=== PATIENT | female | born 1955 | race Caucasian/White ===

== ENCOUNTER 2021-05-03 22:38 | Inpatient (IN) | payer MEDICARE ==
--- NOTE | 2021-05-04 00:28 | ED ---
General Adult HPI - General Source: EMS Mode of arrival: ambulatory Limitations: no limitations <Zuleyma Cook - Last Filed: 05/04/21 03:33> <Dejon Parra - Last Filed: 05/04/21 15:04> - General Stated complaint: altered mental status Time Seen by Provider: 05/03/21 22:47 - History of Present Illness Initial comments: 65 year-old female patient presents via EMS for unknown reasons. Patient states she was eating at a restaurant in [place]. Apparently restaurant staff became concerned and called the police. EMS reports that the officers called them to bring her here because our facility is close to the [place] border. Patient states that she traveled here from [place] on a Greyhound Bus. States she is trying to get to [place] because she does not like our "liberal leaders". She states she has family in [place] but does not have their contact information. States that she has been staying at motels and is trying to get to a motel tonight. Patient denies any current physical symptoms or concerns. States she does have some aching joints consistent with her usual arthritis. States she takes ibuprofen for this but denies any fever or chills or denies any chest pain or shortness of breath. Denies any headache, blurred vision, or double vision. States she feels well. States she is unsure whether brought her to the em ergency department. (Zuleyma Cook) Review of Systems ROS Other: All systems not noted in ROS Statement are negative. <Zuleyma Cook - Last Filed: 05/04/21 03:33> ROS Other: All systems not noted in ROS Statement are negative. <Dejon Parra - Last Filed: 05/04/21 15:04> ROS Statement: Those systems with pertinent positive or pertinent negative responses have been documented in the HPI. Past Medical History Past Medical History: No Reported History, Unable to Obtain History of Any Multi-Drug Resistant Organisms: None Reported Past Surgical History: Unable to Obtain Past Psychological History: No Psychological Hx Reported Smoking Status: Unknown if ever smoked Past Alcohol Use History: None Reported Past Drug Use History: None Reported <Zuleyma Cook - Last Filed: 05/04/21 03:33> General Exam Limitations: no limitations General appearance: alert, in no apparent distress, other (This is a well- developed, well-nourished adult female patient in no acute distress. ) Eye exam: Present: normal appearance, PERRL, EOMI. Absent: scleral icterus, conjunctival injection, periorbital swelling ENT exam: Present: normal exam, normal oropharynx, mucous membranes moist Respiratory exam: Present: normal lung sounds bilaterally. Absent: respiratory distress, wheezes, rales, rhonchi, stridor Cardiovascular Exam: Present: regular rate, normal rhythm, normal heart sounds. Absent: systolic murmur, diastolic murmur, rubs, gallop, clicks GI/Abdominal exam: Present: soft, normal bowel sounds. Absent: distended, tenderness, guarding, rebound, rigid Neurological exam: Present: alert, oriented X3, CN II-XII intact Psychiatric exam: Present: normal affect, normal mood Skin exam: Present: warm, dry, intact, normal color. Absent: rash <Zuleyma Cook - Last Filed: 05/04/21 03:33> Course <Dejon Parra - Last Filed: 05/04/21 15:04> Vital Signs 05/03/21 05/04/21 05/04/21 23:53 00:22 04:05 Temperature 98.8 F Pulse Rate 70 78 Respiratory 18 18 Rate Blood Pressure 158/78 O2 Sat by Pulse 98 98 Oximetry 05/04/21 07:47 Temperature 97.8 F Pulse Rate 83 Respiratory 18 Rate Blood Pressure 169/93 O2 Sat by Pulse 99 Oximetry - Reevaluation(s) Reevaluation #1: 05/04/21 15:03 I did evaluate the patient did do a [id number] with patient. I did complete a clinical certificate on the patient did review the petition. (Dejon Parra) Medical Decision Making <Zuleyma Cook - Last Filed: 05/04/21 03:33> - Lab Data Result diagrams: 05/04/21 12:14 05/04/21 12:14 <Dejon Parra - Last Filed: 05/04/21 15:04> - Medical Decision Making 65 old female patient presented to the emergency department today is essentially homeless living motile [facility]. She is traveling here from [place] attempting to travel into [place]. Patient does not have a cell phone, no phone numbers are contacts. States she doesn't have any family that lives near here. She is not suicidal nor homicidal, has no medical complaints, therefore does not meet criteria for admission. I did attempt to contact motels for her to stay in, none were available or within her man range. Contacted [facility], they have no openings tonight, but advised us to call back after 12:00pm tomorrow. Patient will remain in ED until morning when social work can be contacted for assistance. (Zuleyma Cook) - Lab Data Lab Results 05/03/21 05/04/21 05/04/21 Range/Units 23:45 12:14 12:14 WBC 7.7 (3.8-10.6) k/uL RBC 4.85 (3.80-5.40) m/uL Hgb 14.6 (11.4-16.0) gm/dL Hct 43.0 (34.0-46.0) % MCV 88.7 (80.0-100.0) fL MCH 30.1 (25.0-35.0) pg MCHC 33.9 (31.0-37.0) g/dL RDW 12.5 (11.5-15.5) % Plt Count 322 (150-450) k/uL MPV 6.5 Neutrophils % 74 % Lymphocytes % 17 % Monocytes % 6 % Eosinophils % 1 % Basophils % 1 % Neutrophils # 5.7 (1.3-7.7) k/uL Lymphocytes # 1.3 (1.0-4.8) k/uL Monocytes # 0.5 (0-1.0) k/uL Eosinophils # 0.1 (0-0.7) k/uL Basophils # 0.1 (0-0.2) k/uL Sodium 139 (137-145) mmol/L Potassium 4.7 (3.5-5.1) mmol/L Chloride 105 (98-107) mmol/L Carbon Dioxide 24 (22-30) mmol/L Anion Gap 10 mmol/L BUN 14 (7-17) mg/dL Creatinine 0.67 (0.52-1.04) mg/dL Est GFR (CKD-EPI)AfAm >90 (>60 ml/min/1.73 sqM) Est GFR (CKD-EPI)NonAf >90 (>60 ml/min/1.73 sqM) Glucose 126 H (74-99) mg/dL Calcium 10.0 (8.4-10.2) mg/dL Total Bilirubin 0.3 (0.2-1.3) mg/dL AST 21 (14-36) U/L ALT 11 (4-34) U/L Alkaline Phosphatase 88 (38-126) U/L Creatine Kinase 73 (30-135) U/L Total Protein 6.9 (6.3-8.2) g/dL Albumin 4.4 (3.5-5.0) g/dL Coronavirus (PCR) Not Detected (Not Detectd) Disposition <Zuleyma Cook - Last Filed: 05/04/21 03:33> <Dejon Parra - Last Filed: 05/04/21 15:04> Clinical Impression: Acute psychosis Disposition: TRANSFER TO PSYCH HOSP/UNIT Condition: Fair Referrals: Nonstaff,Physician [Primary Care Provider] - 1-2 days
[2021-05-04 12:40] LABS: ALT 11 U/L (4-34); AST 21 U/L (14-36); African American GFR (CKD) >90 (>60 ml/min/1.73 sqM); Albumin 4.4 g/dL (3.5-5.0); Alkaline Phosphatase 88 U/L (38-126); Anion Gap 10 mmol/L; Blood Urea Nitrogen 14 mg/dL (7-17); Carbon Dioxide 24 mmol/L (22-30); Chloride 105 mmol/L (98-107); Creatine Kinase 73 U/L (30-135); Glucose 126 mg/dL (74-99); Non-African American GFR(CKD) >90 (>60 ml/min/1.73 sqM); Potassium 4.7 mmol/L (3.5-5.1); Sodium 139 mmol/L (137-145); Total Bilirubin 0.3 mg/dL (0.2-1.3); Total Protein 6.9 g/dL (6.3-8.2)
[2021-05-04 12:58] LABS: Basophils # (A) 0.1 k/uL (0-0.2); Basophils % (A) 1 %; Eosinophils # (A) 0.1 k/uL (0-0.7); Eosinophils % (A) 1 %; HGB 14.6 gm/dL (11.4-16.0); Lymphocytes # (A) 1.3 k/uL (1.0-4.8); Lymphocytes % (A) 17 %; MCH 30.1 pg (25.0-35.0); MCHC 33.9 g/dL (31.0-37.0); MCV 88.7 fL (80.0-100.0); Mean Platelet Volume 6.5; Monocytes # (A) 0.5 k/uL (0-1.0); Monocytes % (A) 6 %; Neutrophils # (A) 5.7 k/uL (1.3-7.7); Neutrophils % (A) 74 %; Platelet Count 322 k/uL (150-450); RBC 4.85 m/uL (3.80-5.40); RDW 12.5 % (11.5-15.5); WBC 7.7 k/uL (3.8-10.6)
[2021-05-04] MEDS ORDERED: LORazepam 1 MG TAB PO PRN (16:05)
[2021-05-04] MEDS ORDERED: MAG HYDROX/AL HYDROX/SIMETH 30 ML CUP PO PRN (16:05)
[2021-05-04] MEDS ORDERED: MAGNESIUM HYDROXIDE 2,400 MG/10 ML CUP PO PRN (16:05)
[2021-05-04] MEDS ORDERED: LORazepam 2 MG/ML INJ IM PRN (16:08)
[2021-05-04] MEDS ORDERED: HALOPERIDOL LACTATE 5 MG/ML 1 ML VIAL IM PRN (16:09)
[2021-05-04] MEDS ORDERED: IBUPROFEN 600 MG TAB PO PRN (16:30)
[2021-05-04] MEDS: IBUPROFEN 400 MG TAB PO PRN (18:45)
[2021-05-04] MEDS: LIDOCAINE 5% PATCH TOPICAL SCH (23:26)
--- NOTE | 2021-05-05 02:21 | P.MDCNMH ---
History of Present Illness H&P Date: 05/04/21 Chief Complaint: Medical evaluation 65-year-old female with no significant past medical history, chronic low back pain Patient was brought in by police, she is homeless and has been traveling from [place] to go to [place] to see her family she currently denies any depression, suicidal or homicidal ideation. She reports some low back and mid back pain which is chronic in nature denies any focal neuro deficits she was requesting lidocaine patch to help with pain and cyst which she has been used in the past. She denies any nausea vomiting headache fevers chills coughing shortness of breath or chest pain Initial blood work in the ED was unremarkable Patient denies any mental health problems, denies any smoking drinking or drug abuse Review of Systems Pertinent positives as noted in HPI. All other systems were reviewed and are negative Past Medical History Past Medical History: No Reported History Additional Past Medical History / Comment(s): Arthritis, neck/back pain, psoriasis, hypoglycemia, short term memory loss x10 years (lived in an un-named assisted living facility in [place], [place] for 10 years) History of Any Multi-Drug Resistant Organisms: None Reported Past Surgical History: Appendectomy Past Anesthesia/Blood Transfusion Reactions: Unable to Obtain Past Psychological History: No Psychological Hx Reported Additional Psychological History / Comment(s): Patient reported in EPS assessment that she was hospitalized in [place]. Smoking Status: Never smoker Past Alcohol Use History: None Reported Past Drug Use History: None Reported - Past Family History Mother Additional Family Medical History / Comment(s): Alzheimer's Father Additional Family Medical History / Comment(s): Parkinson's Medications and Allergies Home Medications Medication Instructions Recorded Confirmed Type Ibuprofen [Motrin] 400 mg PO Q6HR PRN 05/04/21 05/04/21 History Allergies Allergy/AdvReac Type Severity Reaction Status Date / Time acetaminophen [From Tylenol] AdvReac Mild Unknown Verified 05/04/21 18:12 Physical Exam Vitals: Vital Signs Temp Pulse Pulse Resp BP BP Pulse Ox 05/04/21 16:22 97.6 F 89 16 170/96 98 05/04/21 07:47 97.8 F 83 18 169/93 99 05/04/21 04:05 78 18 98 Intake and Output 05/04/21 05/04/21 05/05/21 14:59 22:59 06:59 Other: Weight 68.356 kg Constitutional: No acute distress, conversant, pleasant Eyes: Anicteric sclerae, moist conjunctiva, Pupils equal round reactive to light ENMT: NC/AT Oropharynx clear, no erythema, or exudates Neck: Supple, FROM, no masses, or JVD No carotid bruits No thyromegaly Lungs: Clear to auscultation Clear to percussion Normal respiratory effort, no accessory muscle use Cardiovascular: Heart regular in rate and rhythm, No murmurs, gallops, or rubs No peripheral edema Abdominal: Soft Nontender, no guarding, rebound or rigidity Abdomen moving with respiration Normoactive bowel sounds No hepatomegaly, No splenomegaly No palpable mass No abdominal wall hernia noted Skin: Normal temperature, tone, texture, turgor No induration No subcutaneous nodules No rash, lesions No ulcers Extremities: No digital cyanosis No clubbing Pedal pulses intact and symmetrical Radial pulses intact and symmetrical No calf tenderness Psychiatric: Alert and oriented to person, place Appropriate affect fair judgement Neuro Muscles Strength 5/5 in all 4 extremities Sensation to light touch grossly present throughout Cranial nerves II-XII grossly intact No focal sensory deficits Lymphatics: no palpable cervical or supraclavicular , or inguinal lymph nodes Cranial Nerve Examination - Cranial Nerves Cranial Nerve II- Optic: Intact Cranial Nerve III- Oculomotor: Intact Cranial Nerve IV- Trochlear: Intact Cranial Nerve V- Trigeminal: Intact Cranial Nerve - Abducens: Intact Cranial Nerve VII- Facial: Intact Cranial Nerve VIII- Auditory: Intact Cranial Nerve IX- Glossopharyngeal: Intact Cranial Nerve X- Vagus: Intact Cranial Nerve XI- Accessory: Intact Cranial Nerve XII- Hypoglossal: Intact Results CBC & Chem 7: 05/04/21 12:14 05/04/21 12:14 Labs: Abnormal Lab Results - Last 24 Hours (Table) 05/04/21 Range/Units 12:14 Glucose 126 H (74-99) mg/dL Assessment and Plan Assessment: Homeless patient Chronic low back pain and mid back pain, pain management lidocaine patch per her request Follow-up psych recommendations Labs reviewed unremarkable Thank you for allowing us to participate in the care of this patient. We will follow peripherally. Do not hesitate to contact us with questions. Someone can be reached from the [facility] hospitalist group at all hours of the day at [phone].
[2021-05-05] MEDS: IBUPROFEN 400 MG TAB PO PRN ×2 (08:05→20:06)
[2021-05-05 10:01] LABS: Basophils # (A) 0.1 k/uL (0-0.2); Basophils % (A) 1 %; Eosinophils # (A) 0.2 k/uL (0-0.7); Eosinophils % (A) 3 %; Lymphocytes # (A) 1.6 k/uL (1.0-4.8); Lymphocytes % (A) 18 %; MCH 29.7 pg (25.0-35.0); MCHC 32.7 g/dL (31.0-37.0); MCV 90.8 fL (80.0-100.0); Mean Platelet Volume 6.2; Monocytes # (A) 0.5 k/uL (0-1.0); Monocytes % (A) 6 %; Neutrophils # (A) 6.1 k/uL (1.3-7.7); Neutrophils % (A) 71 %; Platelet Count 349 k/uL (150-450); RBC 5.06 m/uL (3.80-5.40); RDW 12.5 % (11.5-15.5); WBC 8.6 k/uL (3.8-10.6)
[2021-05-05 10:16] LABS: ALT 10 U/L (4-34); AST 21 U/L (14-36); African American GFR (CKD) >90 (>60 ml/min/1.73 sqM); Albumin 4.5 g/dL (3.5-5.0); Alkaline Phosphatase 81 U/L (38-126); Anion Gap 6 mmol/L; Blood Urea Nitrogen 16 mg/dL (7-17); Carbon Dioxide 30 mmol/L (22-30); Chloride 103 mmol/L (98-107); Glucose 80 mg/dL (74-99); Non-African American GFR(CKD) 89 (>60 ml/min/1.73 sqM); Potassium 4.8 mmol/L (3.5-5.1); Sodium 139 mmol/L (137-145); Total Bilirubin 0.5 mg/dL (0.2-1.3)
[2021-05-05] MEDS: LIDOCAINE 5% PATCH TOPICAL SCH (11:07)
--- NOTE | 2021-05-05 12:08 | P.HP ---
Psychiatric H&P - . H&P Date: 05/05/21 History & Physical: Allergies Allergy/AdvReac Type Severity Reaction Status Date / Time acetaminophen [From Tylenol] AdvReac Mild Unknown Verified 05/04/21 18:12 Vital Signs Temp 97.4 F L 05/05/21 06:39 Pulse 79 05/05/21 06:39 Resp 16 05/05/21 06:39 BP 179/90 05/05/21 06:39 Pulse Ox 98 05/04/21 16:22 Intake & Output 05/04/21 05/05/21 05/05/21 18:59 06:59 18:59 Weight 68.356 kg Laboratory Last Values WBC 8.6 k/uL (3.8-10.6) 05/05/21 09:36 RBC 5.06 m/uL (3.80-5.40) 05/05/21 09:36 Hgb 15.0 gm/dL (11.4-16.0) 05/05/21 09:36 Hct 46.0 % (34.0-46.0) 05/05/21 09:36 MCV 90.8 fL (80.0-100.0) 05/05/21 09:36 MCH 29.7 pg (25.0-35.0) 05/05/21 09:36 MCHC 32.7 g/dL (31.0-37.0) 05/05/21 09:36 RDW 12.5 % (11.5-15.5) 05/05/21 09:36 Plt Count 349 k/uL (150-450) 05/05/21 09:36 MPV 6.2 05/05/21 09:36 Neutrophils % 71 % 05/05/21 09:36 Lymphocytes % 18 % 05/05/21 09:36 Monocytes % 6 % 05/05/21 09:36 Eosinophils % 3 % 05/05/21 09:36 Basophils % 1 % 05/05/21 09:36 Neutrophils # 6.1 k/uL (1.3-7.7) 05/05/21 09:36 Lymphocytes # 1.6 k/uL (1.0-4.8) 05/05/21 09:36 Monocytes # 0.5 k/uL (0-1.0) 05/05/21 09:36 Eosinophils # 0.2 k/uL (0-0.7) 05/05/21 09:36 Basophils # 0.1 k/uL (0-0.2) 05/05/21 09:36 Sodium 139 mmol/L (137-145) 05/05/21 09:36 Potassium 4.8 mmol/L (3.5-5.1) 05/05/21 09:36 Chloride 103 mmol/L (98-107) 05/05/21 09:36 Carbon Dioxide 30 mmol/L (22-30) 05/05/21 09:36 Anion Gap 6 mmol/L 05/05/21 09:36 BUN 16 mg/dL (7-17) 05/05/21 09:36 Creatinine 0.71 mg/dL (0.52-1.04) 05/05/21 09:36 Est GFR (CKD-EPI)AfAm >90 (>60 ml/min/1.73 sqM) 05/05/21 09:36 Est GFR (CKD-EPI)NonAf 89 (>60 ml/min/1.73 sqM) 05/05/21 09:36 Glucose 80 mg/dL (74-99) 05/05/21 09:36 Calcium 10.0 mg/dL (8.4-10.2) 05/05/21 09:36 Total Bilirubin 0.5 mg/dL (0.2-1.3) 05/05/21 09:36 AST 21 U/L (14-36) 05/05/21 09:36 ALT 10 U/L (4-34) 05/05/21 09:36 Alkaline Phosphatase 81 U/L (38-126) 05/05/21 09:36 Creatine Kinase 73 U/L (30-135) 05/04/21 12:14 Total Protein 7.0 g/dL (6.3-8.2) 05/05/21 09:36 Albumin 4.5 g/dL (3.5-5.0) 05/05/21 09:36 TSH 6.040 mIU/L (0.465-4.680) H 05/05/21 09:36 Coronavirus (PCR) Not Detected (Not Detectd) 05/03/21 23:45 05/05/21 12:07 IDENTIFYING DATA: Patient is a single, unemployed, homeless, 65 year-old female who was admitted for psychosis. HPI: Patient presented to the hospital on 05/04/2021. As previously noted, the patient was brought to the ER by EMS after being at a restaurant in [place]. Patient reports she was trying to go to [place] to be with her cousins in [place] as she states that "Muslims have taken over [place], [place]." Fur thermore, the patient reports that [place] Christians are being "experimented on" and being given bad prescriptions. She also suspects that this is a ploy from the Muslims or taking over. The patient does express that she is going to [place] to escape all of this. She does state that she did not inform her family members that she'll be going to [place], and is quite confused at this provider asking whether she informed them were not stating that she does not need to inform them. The patient is noted to be quite resourceful, going from Motel room to motel room in [facility] and in the surrounding area. There is a question whether she was recently admitted to a psychiatric unit in [place]. The patient does express strong disdain for the mental health profession, stating that she does not want to be experimented on by the psychiatrists in the mental health system. The patient is quite religiously preoccupied, and replies to this provider, "they tried to put me on medications but I prayed to God and had them boomerang it back to them." The patient is unable to answer any further questions regarding any other symptoms. She continues to display pressured speech and is uncooperative with the rest of the interview. PAST PSYCHIATRIC HISTORY: Unable to assess. Reportedly, the patient was recently hospitalized in an inpatient psychiatric unit in [place]. No psychiatric medications are listed. Patient does not report any previous psychiatric treatment. PMH: Past Medical History: No Reported History Additional Past Medical History / Comment(s): Arthritis, neck/back pain, psoriasis, hypoglycemia, short term memory loss x10 years (lived in an un-named assisted living facility in [place], [place] for 10 years) History of Any Multi-Drug Resistant Organisms: None Reported Past Surgical History: Appendectomy Past Anesthesia/Blood Transfusion Reactions: Unable to Obtain Past Psychological History: No Psychological Hx Reported Additional Psychological History / Comment(s): Patient reported in EPS a ssessment that she was hospitalized in [place]. Smoking Status: Never smoker Past Alcohol Use History: None Reported Past Drug Use History: None Reported ALLERGIES: Acetaminophen CHEMICAL DEPENDENCY HISTORY: as per HPI FAMILY PSYCHIATRIC/SUBSTANCE USE HISTORY: denies SOCIAL HISTORY: Patient is originally from [place], [place]. She also notes [place], [place] as part of her residence in the past. She reports multiple family members throughout the [place] and in [place]. She reports that she was headed towards her cousin in [place]. MENTAL STATUS EXAM: General Appearance: Patient appears to be her stated age, with poor hygiene and grooming, and is uncooperative and difficult to direct on approach. Behavior: Patient is lying in bed. Psychomotor activity is elevated. Speech: Patient's speech is pressured, repetitive, loud in volume, and hyperverbal. Mood/Affect: Patient reports their mood is "good because of God," affect is intense, expansive, and irritable. Suicidality/Homicidality: Unable to assess. Patient refuses to answer. Perceptions: Unable to assess. Patient refuses to answer. Though content/process: Patient is very religiously preoccupied. Thought process with flight of ideas. Memory and concentration: Grossly intact for the purposes of this session. Judgment and insight: Very poor STRENGTHS/WEAKNESSES: Strength is that the patient is resourceful. Weakness is that the patient has very poor insight and limited judgment. Nonadherent with treatment. INTELLECT: average IMPRESSIONS: Bipolar disorder, type I versus schizoaffective disorder, bipolar type PLAN: -Patient is admitted under involuntary status to MHU for stabilization of psychiatric symptoms and safety. A second certification was completed and along with petition will be filed for court. -Medications : Will start Invega 3 mg at bedtime for mood stabilization/psychosis -Ativan and Haldol PRN for agitation/aggression -Patient was informed of the risks, benefits and side effects of the medication. Patient refused to acknowledge. -Internal Medicine consult to perform medical evaluation and physical. -SW on board for discharge planning. Encourage patient to participate in groups to work on coping skills. 05/05/21 12:08
[2021-05-05 15:06] LABS: Appearance,Urine Clear (Clear); Bacteria,Urine Rare /hpf; Bilirubin,Urine Negative (Negative); Blood,Urine Negative (Negative); Color,Urine Light Yellow; Glucose,Urine (UA) Negative (Negative); Ketones,Urine Negative (Negative); Leukocyte Esterase,Urine Moderate (Negative); Nitrite,Urine Negative (Negative); PH, Urine 6.5 (5.0-8.0); Protein,Urine Negative (Negative); RBC,Urine 2 /hpf (0-5); Specific Gravity,Urine 1.011 (1.001-1.035); Urobilinogen,Urine <2.0 mg/dL (<2.0); WBC,Urine 1 /hpf (0-5)
[2021-05-05 18:12] LABS: Chol/HDL Ratio 2.75; Cholesterol 231 mg/dL (0-200)
[2021-05-05 19:51] LABS: Hemoglobin A1C 5.1 % (4.0-6.0)
[2021-05-05] MEDS: PALIPERIDONE 3 MG TAB.ER.24 PO SCH (20:07)
[2021-05-06 01:42] LABS: Urine Alcohol Negative (Negative); Urine Barbiturate Negative (Negative); Urine Cocaine Negative (Negative); Urine Methadone Negative (Negative); Urine Opiates Negative (Negative); Urine Phencyclidine Negative (Negative)
[2021-05-06] MEDS: LIDOCAINE 5% PATCH TOPICAL SCH (09:02)
[2021-05-06] MEDS: IBUPROFEN 400 MG TAB PO PRN ×3 (09:04→23:41)
--- NOTE | 2021-05-06 10:15 | P.PN ---
Progress Note - Text Progress Note Date: 05/06/21 Interval History: Patient was seen talking/praying to herself in the common room and was directable and agreeable to speak with writer editor in the office. The patient reports that she is doing well. She did take the medication last night and is not reporting any significant side effects that today. She continues to believe that the medications are just being used to experiment on her. She is currently not reporting any suicidal or homicidal ideation, intention, and/or plan. She is not reporting any auditory or visual hallucinations. She's not endorsing any paranoia or delusions but continues to be somewhat religiously preoccupied. The patient does highlight that she began her trip from [place] to [place] weeks ago. She states that she took a Greyhound from [place] to [place]. She reports that she was staying in between motels. The patient states that she "told somebody" to contact her family in [place] but cannot recall whom she told stating she has short term memory issues. The patient does state that she has an enhanced license longer to cross the border but was informed that due to Covid, nonessential travel is currently not open. The patient identifies Dr. Danuta Hoyt as her cousin who currently resides in [place]. The patient is currently unable to identfy an address or number but states that she would find her cousin by going to the hospital there. In regards to events leading to this hospitalization, the patient continues to maintain that she was brought to the hospital from [place] because she was informed that this would be the best way for her to cross the border. Mental Status Exam: General Appearance: Patient appears to be stated age is alert, directable, and cooperative. Dressed in her home clothes. Behavior: Patient is calmly seated without any agitated behavior. Psychomotor activity is slightly elevated. Speech: Patient's speech is fluent, hyperverbal, and somewhat pressured but more interruptible. Mood/Affect: Mood is feeling better, affect is expansive but not irritable. Suicidality/Homicidality: Patient denies any suicidal or homicidal ideation, intention, and/or plan. Perceptions: Patient denies any auditory or visual hallucinations. Though content/process: There is no evidence of any delusional thought content and thought process is linear and goal-directed. Memory and concentration: AAOX3, grossly intact for the purposes of this session Judgment and insight: Improving mildly Vital Signs Temp 97.5 F L 05/06/21 06:48 Pulse 62 05/06/21 06:48 Resp 16 05/06/21 06:48 BP 162/74 05/06/21 06:48 Pulse Ox 98 05/04/21 16:22 Laboratory Results - Last 24 Hours 05/04/21 05/05/21 05/05/21 Unknown 09:36 09:36 Sodium 139 Potassium 4.8 Chloride 103 Carbon Dioxide 30 Anion Gap 6 BUN 16 Creatinine 0.71 Est GFR (CKD-EPI)AfAm >90 Est GFR (CKD-EPI)NonAf [address] Glu mg/dL 100 Hemoglobin A1c 5.1 Calcium 10.0 Total Bilirubin 0.5 AST 21 ALT 10 Alkaline Phosphatase 81 Total Protein 7.0 Albumin 4.5 Triglycerides 95.0 Cholesterol 231 H LDL Cholesterol, Calc 128.0 VLDL Cholesterol, Calc 19.00 HDL Cholesterol 84.0 H Cholesterol/HDL Ratio 2.75 TSH 6.040 H Free T4 Urine Color Light Yellow Urine Appearance Clear Urine pH 6.5 Ur Specific Winder 1.011 Urine Protein Negative Urine Glucose (UA) Negative Urine Ketones Negative Urine Blood Negative Urine Nitrite Negative Urine Bilirubin Negative Urine Urobilinogen <2.0 Ur Leukocyte Esterase Moderate H Urine RBC 2 Urine WBC 1 Urine Bacteria Rare H Urine Opiates Screen Urine Methadone Screen Ur Propoxyphene Screen Urine Barbiturates Ur Phencyclidine Scrn Ur Amphetamine Screen U Benzodiazepines Scrn Urine Cocaine Screen U Cannabinoids Screen Urine Alcohol 05/05/21 05/05/21 09:36 Unknown Sodium Potassium Chloride Carbon Dioxide Anion Gap BUN Creatinine Est GFR (CKD-EPI)AfAm Est GFR (CKD-EPI)NonAf Glucose Estimated Ave Glu mg/dL Hemoglobin A1c Calcium Total Bilirubin AST ALT Alkaline Phosphatase Total Protein Albumin Triglycerides Cholesterol LDL Cholesterol, Calc VLDL Cholesterol, Calc HDL Cholesterol Cholesterol/HDL Ratio TSH Free T4 0.78 Urine Color Urine Appearance Urine pH Ur Specific Winder Urine Protein Urine Glucose (UA) Urine Ketones Urine Blood Urine Nitrite Urine Bilirubin Urine Urobilinogen Ur Leukocyte Esterase Urine RBC Urine WBC Urine Bacteria Urine Opiates Screen Negative Urine Methadone Screen Negative Ur Propoxyphene Screen Negative Urine Barbiturates Negative Ur Phencyclidine Scrn Negative Ur Amphetamine Screen Negative U Benzodiazepines Scrn Negative Urine Cocaine Screen Negative U Cannabinoids Screen Negative Urine Alcohol Negative Assessment Bipolar disorder, type I versus schizoaffective disorder, bipolar type Plan: -Patient continues to meet criteria for inpatient psychiatric admission for symptom stabilization and safety. Patient has been petitioned and certified. -Medications: Continue Invega 3 mg by mouth at bedtime for mood stabilization/psychosis We'll gradually increase Invega over the weekend. -When necessary Ativan and Haldol for agitation/aggression. -SW on board for discharge planning. Encouraged the patient to participate in milieu.
[2021-05-06] MEDS: PALIPERIDONE 3 MG TAB.ER.24 PO SCH (21:13)
[2021-05-07] MEDS: IBUPROFEN 400 MG TAB PO PRN ×2 (08:12→17:32)
[2021-05-07] MEDS: LIDOCAINE 5% PATCH TOPICAL SCH (09:07)
--- NOTE | 2021-05-07 12:36 | PN ---
PROGRESS NOTE DATE OF SERVICE: 05/07/2021 CHIEF COMPLAINT: The patient was admitted on petition. She had psychotic symptoms where she was expressing paranoid ideas and was hyper-scientologist. INTERVAL HISTORY: Patient has been doing fair. She was out on the unit yesterday. She did attend two groups for a limited amount of time. She tends to talk spontaneously about the issues that she especially is caught up in. A common theme seems to be that Judaism are bad in many ways and threatening to her and others. She did not take medications. She did not sleep much last night. Today she has been up. She continues to wander. She has an intense manner. She continues to focus on the hyper-scientologist thoughts that she has. She made a number of comments about believing any medicines that might be prescribed would be poison or doing some kind of experimentation on her. She was not able to engage in any conversation about her admission to the unit and factors relating to the petition process. MENTAL STATUS: Patient was somewhat restless. She gave fairly good eye contact. She talked in a fairly intense manner. She had some pressured speech and flight of ideas. Mostly she made comments about scientologist themes that were clearly delusional. Her affect was intense. At some times during the interview she seemed to have a somewhat angry manner though toward the end of the interview she smiled and was quite friendly. At that point she seemed to be in a positive mood. She did appear to be distressed. She continues to have delusions and paranoia. She voiced no thoughts of harm. She is oriented to circumstances and surroundings. ASSESSMENT: I will continue the current diagnosis and treatment plan. I encouraged the patient towards her getting on some medications though it is not likely that she will follow through at this time. I did make an effort to talk with her about the petition process and the potential for IM medications though that conversation was fairly limited as well, as the patient would defer and talk about other things. For the most part the patient appears to have appropriate behavior on the unit. We will continue with the petition process and focus on stabilization and discharge planning. JOSEF / LAWSON: [id number] /
[2021-05-07] MEDS: PALIPERIDONE 6 MG TAB.ER.24 PO SCH (21:13)
[2021-05-08] MEDS: IBUPROFEN 400 MG TAB PO PRN ×3 (00:11→17:56)
[2021-05-08] MEDS: LIDOCAINE 5% PATCH TOPICAL SCH ×3 (08:49→20:56)
--- NOTE | 2021-05-08 17:27 | PN ---
PROGRESS NOTE DATE OF SERVICE: 05/08/2021 CHIEF COMPLAINT: The patient was admitted on petition. She had psychotic symptoms where she was expressing paranoid ideas and was hyper hindu. INTERVAL HISTORY: The patient continues to do about the same as she has been. She mostly had a quiet day yesterday. She comes out on the unit. She wanders about. She will interact with others. At times she can be quite intense. She attended groups yesterday. She went into the 11:00 am group and the following was documented "patient briefly attended twice, but did not participate. Patient entered room "I love Ralph they are going to help. Statement did not appear to be directed towards any peers. The patient continued making statements related to lutheran when leaving the room." She attended a group at 3:30 PM and similar documentation was noted where she would shout out hindu statements. She has not been taking medications. She slept fairly well last night today she has been up. She continues to do the same. She comes out in the day area. She will carry on conversations though it is not always clear she is talking to anyone in particular. At the 11 o'clock group today, was noted that the patient sat at a table and continuously talked though it was not clear that she was talking to anyone in particular. She was religiously focused at the 1345 group. She was making some disconnected statements. She talked about muscle limbs being dangers people. When I talked to the patient about her petition situation, she got very upset with that. She believes that wicked people were throwing her in hospital and were going to experiment with medications on an innocent elderly person. She was not able to engage productively in the conversation. She continues to decline taking any psychotropic medications. MENTAL STATUS: Patient was quite restless, pretty much as soon as the issue of the petition process came up. She started getting quite intense. She got loud and was talking continuously. It was difficult to get a word in edge ojeda. She would point in an angry way making various statements about the dangerous people with various hindu references. Her affect was intense, her mood depressed. She was significantly distressed. She voiced paranoid delusions. She did not indicate any clear issues about thoughts of harm toward self or others. She was oriented to immediate circumstances. ASSESSMENT: I will continue the current diagnosis and treatment plan. I made an effort to discuss the petition process with the patient. I went through the petition that was completed apparently in the emergency department. It is noted that the patient was met by police in the community, though for the patient's part she did not seem to have any insight or understanding as to why the police came and what their concerns were in calling EMS. At this point, we will continue to support the patient and follow through with the petition process. MMSABINAL / IJN: [id number] /
[2021-05-08] MEDS: PALIPERIDONE 6 MG TAB.ER.24 PO SCH (20:55)
[2021-05-09] MEDS: IBUPROFEN 400 MG TAB PO PRN ×3 (01:35→16:50)
--- NOTE | 2021-05-09 14:40 | PN ---
PROGRESS NOTE DATE OF SERVICE: 05/09/2021. CHIEF COMPLAINT: The patient was admitted on petition. She had psychotic symptoms where she was expressing paranoid ideas and was hyper orthodoxy. INTERVAL HISTORY: Patient has continued to do the same. She had a quiet day yesterday. She comes out of the unit. She wanders about sometimes. She will get upset some and will make various references to being threatened in one way or another. Typically she will go off on orthodoxy themes. There are times when she is out on the unit where she seems to be comfortable and relaxed, though times where she can regress. She slept fairly well last night. Today she has been up. She continues to decline taking any medications. She did not make much effort to engage in conversation about the petition process. She attended an afternoon group. She she voiced no specific complaints or concerns today. MENTAL STATUS: Patient gave fairly good eye contact. She did not choose to talk for very long and ended the conversation after a short period of time. She was a little restless. Her thoughts were clear. Her affect was in a reasonable range. Her mood was reserved. She did not present in any distressed way. When I saw her today, she continues to show paranoid thinking. She made no indication of thoughts of harm. Cognition was clear. ASSESSMENT: I will continue the current diagnosis and treatment plan. We continue to encourage the patient to engage in group activities as well as to consider option of medications as a potential benefit for her. She continues in the legal process regarding her petition for involuntary hospitalization. We will focus on stabilization and discharge planning. MMSABINAL / IJN: [id number] /
[2021-05-09] MEDS: PALIPERIDONE 6 MG TAB.ER.24 PO SCH (21:06)
[2021-05-09] MEDS: LIDOCAINE 5% PATCH TOPICAL SCH (22:07)
[2021-05-10] MEDS: IBUPROFEN 400 MG TAB PO PRN ×3 (00:58→16:15)
[2021-05-10] MEDS: LIDOCAINE 5% PATCH TOPICAL SCH ×2 (09:04→21:57)
--- NOTE | 2021-05-10 12:41 | PN ---
PROGRESS NOTE DATE OF SERVICE: 05/10/2021. CHIEF COMPLAINT: The patient was admitted on petition. She had psychotic symptoms where she was expressing paranoid ideas and was hyper baptism. INTERVAL HISTORY: Patient continues about the same. She comes out in the day area. She will roam the unit. She interacts some with others. She will attend some of the groups and will engage in activity. She did not sleep well last night. A note from nursing at 6:17 am this morning is as follows: "The patient has been awake and restless the majority of the night. The patient reported she could not go in her room to sleep and stated she was scared. The patient spent the entire night in the back hallway in the chair. Patient also observed to be talking loudly to herself voicing loose associations about politics in scientology. The patient redirectable but only slept approximately 2 hours." The patient took her Invega 6 mg last evening at 9:00 pm. That is the first time she accepted her psychotropic. We continue to wait on the court process to proceed. The patient appeared to tolerate the initial dose of Invega. MENTAL STATUS: Patient was somewhat restless. She gave good eye contact. She made various statements, most of which had to do with some baptism themes. She had a fairly calm manner and was not too intense in her affect. Her mood was quiet. She did not appear to be distressed. She continues to voice paranoid delusions. She voices no thoughts of harm. She is oriented to circumstances and surroundings. ASSESSMENT: I will continue the current diagnosis and treatment plan. I deferred talking to the patient regarding her medications as with previous discussions that only seems to set her off into a lot of paranoid thinking and distress. We will be hopeful that she continues accepting the Invega. We are waiting on the court process to continue in regard to her petition for involuntary treatment. We will focus on stabilization and discharge planning. MMODL / SARAHN: [id number] /
[2021-05-10] MEDS: PALIPERIDONE 6 MG TAB.ER.24 PO SCH (21:18)
[2021-05-11] MEDS: IBUPROFEN 400 MG TAB PO PRN ×3 (07:09→23:00)
[2021-05-11] MEDS: LIDOCAINE 5% PATCH TOPICAL SCH (09:05)
--- NOTE | 2021-05-11 10:15 | P.PN ---
Progress Note - Text Progress Note Date: 05/11/21 Interval History: Patient was seen wandering the hallways and was agreeable to speak with continuity writer in the office. The patient has been intimately adherent with the medications but did take Invega yesterday. She is currently not reporting any significant side effects of this medication. The patient maintains that she does not need any of this medication and that she is being experimented on. Patient continues to report that Christians are being persecuted against and that this is the plan of the devil. She reports that Christians are being tossed him to psychiatric units to be force fed medications. She is not reporting any suicidal or homicidal ideation, intention, and/or plan. She is denying any auditory or visual hallucinations. She is not reporting any suicidal or homicidal ideation, intention, and/or plan. She denies any issues with sleep. She reports no issues with her appetite. Mental Status Exam: General Appearance: Patient appears to be stated age is alert, directable, and cooperative. Dressed in her home clothes. Behavior: Patient is calmly seated without any agitated behavior. Psychomotor activity is elevated. Speech: Patient's speech is fluent, hyperverbal, and difficult to interrupt. Pressured. Mood/Affect: Mood is "feeling okay." Affect is expansive, intense, and labile. Suicidality/Homicidality: Patient denies any suicidal or homicidal ideation, intention, and/or plan. Perceptions: Patient denies any auditory or visual hallucinations. Though content/process: Religiously preoccupied, delusions of persecution. Thought process is otherwise linear but illogical. Memory and concentration: AAOX3, grossly intact for the purposes of this session Judgment and insight: Very poor Vital Signs Temp 97.5 F L 05/10/21 06:45 Pulse 77 05/10/21 06:45 Resp 16 05/10/21 06:45 BP 186/81 05/10/21 06:45 Pulse Ox 98 05/04/21 16:22 Assessment Bipolar disorder, type I versus schizoaffective disorder, bipolar type Plan: -Patient continues to meet criteria for inpatient psychiatric admission for symptom stabilization and safety. Patient has been petitioned and certified. -Medications: Continue Invega 6 mg by mouth at bedtime for mood stabilization/psychosis Continue to encourage medication adherence. -When necessary Ativan and Haldol for agitation/aggression. -SW on board for discharge planning. Encouraged the patient to participate in milieu.
[2021-05-11] MEDS: PALIPERIDONE 6 MG TAB.ER.24 PO SCH (21:17)
[2021-05-12] MEDS: IBUPROFEN 400 MG TAB PO PRN ×2 (08:07→16:16)
[2021-05-12] MEDS: LIDOCAINE 5% PATCH TOPICAL SCH (09:17)
--- NOTE | 2021-05-12 12:18 | P.PN ---
Progress Note - Text Progress Note Date: 05/12/21 Interval History: Patient was seen wandering the hallways and speaking to herself and was agreea ble to speak with check writer salesperson in the office. The patient first states that she wants this provider to read "Psalm 103." She continues to be religiously preoccupied. She is currently denying any suicidal or homicidal ideation, intention, and/or plan. She denies any auditory or visual hallucinations. She reports no paranoia or other delusions. The patient continues to maintain that she is sleeping and eating well. Despite this, she has been noted by staff to not be sleeping at night. She continues to be noted to be elevated, euphoric, and at times speaking to herself. She has been adherent with her Invega is currently not reporting any significant side effects at this time. Mental Status Exam: General Appearance: Patient appears to be stated age is alert, directable, and cooperative. Dressed in her home clothes. Multiple layers. Behavior: Patient is calmly seated without any agitated behavior. Psychomotor activity is normal. Speech: Patient's speech is fluent, hyperverbal, and difficult to interrupt. Pressured. Mood/Affect: Mood is "doing great!" Affect is expansive and euphoric. Suicidality/Homicidality: Patient denies any suicidal or homicidal ideation, intention, and/or plan. Perceptions: Patient denies any auditory or visual hallucinations. Though content/process: Religiously preoccupied, delusions of persecution. Thought process is otherwise linear but illogical. Memory and concentration: AAOX3, grossly intact for the purposes of this session Judgment and insight: Very poor Vital Signs Vital Signs Temp 97.5 F L 05/10/21 06:45 Pulse 77 05/10/21 06:45 Resp 16 05/10/21 06:45 BP 186/81 05/10/21 06:45 Pulse Ox 98 05/04/21 16:22 Assessment Bipolar disorder, type I versus schizoaffective disorder, bipolar type Plan: -Patient continues to meet criteria for inpatient psychiatric admission for symptom stabilization and safety. Patient has been petitioned and certified. -Medications: Increase invega to 9 mg by mouth at bedtime for mood stabilization/psychosis Start Trazodone 50 mg at bedtime for insomnia Continue to encourage medication adherence. -When necessary Ativan and Haldol for agitation/aggression. -SW on board for discharge planning. Encouraged the patient to participate in milieu.
[2021-05-12] MEDS: PALIPERIDONE 3 MG TAB.ER.24 PO SCH (21:21)
[2021-05-12] MEDS: traZODone HCL 50 MG TAB PO SCH (21:21)
[2021-05-13] MEDS: IBUPROFEN 400 MG TAB PO PRN ×4 (00:03→23:55)
[2021-05-13] MEDS: LIDOCAINE 5% PATCH TOPICAL SCH (10:55)
--- NOTE | 2021-05-13 12:50 | P.PN ---
Progress Note - Text Progress Note Date: 05/13/21 Interval History: Patient was seen wandering the hallways and speaking to herself and was agree able to speak with medical technical writer in the office. Patient continues to be very religiously preoccupied. She is seen talking to herself on the unit and has been noted to have difficulty sleeping and to be up at late hours in the night. She continues to deny any suicidal or homicidal ideation, intention, and/or plan. She denies any auditory or visual hallucinations. She reports no paranoia or delusions but does express fear that "the devil and the Muslims are taking over [place]." She has been adherent with her Invega but refused her trazodone. She is not reporting any significant side effects of the medication at this time. She does participate in individual and milieu therapies. She reports no issues with her appetite. Mental Status Exam: General Appearance: Patient appears to be stated age is alert, directable, and cooperative. Dressed in her home clothes. Behavior: Patient is calmly seated without any agitated behavior. Psychomotor activity is normal. Speech: Patient's speech is fluent, hyperverbal, and difficult to interrupt. Pressured. Mood/Affect: Mood is "really good" Affect is expansive and bright. Suicidality/Homicidality: Patient denies any suicidal or homicidal ideation, intention, and/or plan. Perceptions: Patient denies any auditory or visual hallucinations. Though content/process: Religiously preoccupied, delusions of persecution. Thought process is otherwise linear but illogical. Memory and concentration: AAOX3, grossly intact for the purposes of this session Judgment and insight: Very poor Vital Signs Temp 97.4 F L 05/13/21 01:08 Pulse 77 05/10/21 06:45 Resp 18 05/13/21 01:08 BP 186/81 05/10/21 06:45 Pulse Ox 98 05/04/21 16:22 Assessment Bipolar disorder, type I versus schizoaffective disorder, bipolar type Plan: -Patient continues to meet criteria for inpatient psychiatric admission for symptom stabilization and safety. Patient has been petitioned and certified. The patient did not defer. The patient is scheduled for court on 05/18/21. -Medications: Continue invega 9 mg by mouth at bedtime for mood stabilization/psychosis Continue Trazodone 50 mg at bedtime for insomnia Continue to encourage medication adherence. -When necessary Ativan and Haldol for agitation/aggression. -SW on board for discharge planning. Encouraged the patient to participate in milieu.
[2021-05-13] MEDS: traZODone HCL 50 MG TAB PO SCH ×2 (21:21→21:28)
[2021-05-13] MEDS: PALIPERIDONE 3 MG TAB.ER.24 PO SCH (21:23)
[2021-05-14] MEDS: IBUPROFEN 400 MG TAB PO PRN ×2 (07:56→16:03)
[2021-05-14] MEDS: LIDOCAINE 5% PATCH TOPICAL SCH (11:41)
--- NOTE | 2021-05-14 17:10 | P.PN ---
Progress Note - Text Progress Note Date: 05/14/21 Clinical Problems: Bipolar disorder, type I versus schizoaffective disorder, bipolar type Interim history: I reviewed the medical surrogate and interviewed the patient. She is a 65-year-old female admitted to the psychiatric unit involuntarily. She was agitated, paranoid and delusional. She expressed fragmented delusional beliefs with a general orthodox theme. She refused to deferred the probate hearing and has a hearing scheduled for 05/18/2021. She was labile and her speech was disorganized. She was observed talking to herself as though she were responding to internal stimuli. She started Invega 6 mg yesterday and denied side effects. She attends therapeutic groups and activities. Her therapist describe her as disheveled, tangential religiously preoccupied and unable to focus. She slept 4 hours last night. Mental status exam: He presented as a disheveled appearing elderly female who had difficulty concentrating on the interview. She had no prominent physical abnormalities. She had a distressed facial expression. She showed no abnormality of psychomotor activity. Her speech was spontaneous with increased rate and rhythm. Affect was labile and inappropriate. She denied express suicidal ideation or wishes. She remains religiously preoccupied and expresses fragmented delusional beliefs. I then was abstract but not coherent or organized. She appeared to be responding to internal stimuli. Assessment: She is seriously mentally ill and minimally improve from admission. She has no insight or understanding of illness or need for treatment. Plan: Continue inpatient treatment. Safety precautions. Request a combined treatment order during the probate hearing on 05/18/2021. Continue Invega 6 mg daily and titrated according to clinical response and tolerance. Consider transitioning to long-acting Invega. Continue participation in therapeutic groups and activities. Evaluate clinical status response to treatment daily basis.
[2021-05-14] MEDS: PALIPERIDONE 3 MG TAB.ER.24 PO SCH (20:40)
[2021-05-14] MEDS: traZODone HCL 50 MG TAB PO SCH (21:54)
[2021-05-15] MEDS: IBUPROFEN 400 MG TAB PO PRN ×3 (00:12→16:07)
--- NOTE | 2021-05-15 11:01 | P.PN ---
Progress Note - Text Progress Note Date: 05/15/21 Clinical Problems: Bipolar disorder, type I versus schizoaffective disorder, bipolar type Interim history: I reviewed the medical surrogate and interviewed the patient. She refused to deferred the probate hearing and has a hearing scheduled for 05/18/2021. I observed her walking the hallways talking loudly to herself and gesturing with her hands. When I approached her about interview she replied that she had already spoken with "her doctor" and refused to speak with me. According to the MAR she's been compliant with paliperidone 9 mg since . Mental status exam: She presented as a disheveled appearing elderly female who was internally preoccupied, guarded and suspicious. She had no prominent physical abnormalities. She had a distressed facial expression. She showed no abnormality of psychomotor activity. Her speech was spontaneous with increased rate and rhythm. Affect was labile and inappropriate. She did not express suicidal ideation or wishes. I was unable to fully evaluate her thought content. I thinking not coherent or organized. She appeared to be responding to internal stimuli. Assessment: She is seriously mentally ill and minimally improve from admission. She has no insight or understanding of illness or need for treatment. Plan: Continue inpatient treatment. Safety precautions. Request a combined treatment order during the probate hearing on 05/18/2021. Continue Invega 6 mg daily and titrated according to clinical response and tolerance. Consider transitioning to long-acting Invega. Continue participation in therapeutic groups and activities. Evaluate clinical status response to treatment daily basis.
[2021-05-15] MEDS: LIDOCAINE 5% PATCH TOPICAL SCH (14:34)
[2021-05-15] MEDS: PALIPERIDONE 3 MG TAB.ER.24 PO SCH (23:08)
[2021-05-15] MEDS: traZODone HCL 50 MG TAB PO SCH (23:08)
[2021-05-16] MEDS: IBUPROFEN 400 MG TAB PO PRN ×3 (00:07→16:38)
[2021-05-16] MEDS: LIDOCAINE 5% PATCH TOPICAL SCH (09:22)
--- NOTE | 2021-05-16 12:37 | P.PN ---
Progress Note - Text Progress Note Date: 05/16/21 Interval History: Patient was seen wandering the hallways and speaking to herself and was agre eable to speak with communications writer in the office. The patient was found on the unit speaking to herself and appears to be quite euphoric. When asked direct questioning, the patient is denying any suicidal or homicidal ideation, intention, and/or plan. She denying any auditory or visualizations. She is denying any paranoia or other delusions. She denies any issues with sleep or appetite. The patient does acknowledge that she is scheduled for court this Sunday. When asked if we can contact any family members regarding her situation, the patient states that she will allow us to speak with her family in [place] but does not have any other contact information. She continues to confirm that the family memeber is Danuta Mar, A neurologist in [place]. Mental Status Exam: General Appearance: Patient appears to be stated age is alert, directable, and cooperative. Dressed in her home clothes. Poor dentition. Behavior: Patient is calmly seated without any agitated behavior. Psychomotor activity is normal. Speech: Patient's speech is fluent, hyperverbal, but interruptible. Mood/Affect: Mood is "really good" Affect is expansive and euphoric. Suicidality/Homicidality: Patient denies any suicidal or homicidal ideation, intention, and/or plan. Perceptions: Patient denies any auditory or visual hallucinations. Though content/process: Not reporting any delusions today.Continues to be religiously preoccupied. Memory and concentration: AAOX3, grossly intact for the purposes of this session Judgment and insight: Very poor Assessment Bipolar disorder, type I versus schizoaffective disorder, bipolar type Plan: -Patient continues to meet criteria for inpatient psychiatric admission for symptom stabilization and safety. Patient has been petitioned and certified. The patient did not defer. The patient is scheduled for court on 05/18/21. -Medications: Continue invega 9 mg by mouth at bedtime for mood stabilization/psychosis. If no further improvement will consider switch to prolixin. Continue Trazodone 50 mg at bedtime for insomnia Continue to encourage medication adherence. Consider addition of mood stabilizer. -When necessary Ativan and Haldol for agitation/aggression. -SW on board for discharge planning. Encouraged the patient to participate in milieu.
[2021-05-16] MEDS: traZODone HCL 50 MG TAB PO SCH (20:55)
[2021-05-16] MEDS: PALIPERIDONE 3 MG TAB.ER.24 PO SCH (20:55)
[2021-05-17] MEDS: IBUPROFEN 400 MG TAB PO PRN ×2 (08:09→16:39)
[2021-05-17] MEDS: LIDOCAINE 5% PATCH TOPICAL SCH ×2 (10:09→11:01)
--- NOTE | 2021-05-17 11:55 | P.PN ---
Progress Note - Text Progress Note Date: 05/17/21 Interval History: Patient was seen sleeping in the hallway in a chair and was agreeable to speak with the check writer salesperson in the office. The patient is denying any suicidal or homicidal ideation, intention, and/or plan. She is denying any auditory or visual hallucinations. She reports no paranoia or other delusions. She has been adherent with her invega and is not reporting any side effects. When informed she has is scheduled for mental health court tomorrow, the patient becomes angry. She expresses she has not performed any crime. She was informed that this is a civil case regarding her rights as a patient and this is mental health court. Patient refused to acknowledge what she was told instead stating she will refuse to acknowledge the court stating "[place] is a democracy and this is unnecesssary." Mental Status Exam: General Appearance: Patient appears to be stated age is alert, directable, and cooperative. Dressed in her home clothes. Poor dentition. Behavior: Patient is calmly seated without any agitated behavior. Psychomotor activity is normal. Speech: Patient's speech is initially spontaneous with normal rate, tone and volume, but as she becomes elevated regarding court she becomes pressured. Mood/Affect: Mood is initially "good." and affect is initially euthymic to bright. She later became angry and annoyed. Suicidality/Homicidality: Patient denies any suicidal or homicidal ideation, intention, and/or plan. Perceptions: Patient denies any auditory or visual hallucinations. Though content/process: Not reporting any delusions today.Continues to be religiously preoccupied. Memory and concentration: AAOX3, grossly intact for the purposes of this session Judgment and insight: Very poor Vital Signs Temp 97.4 F L 05/17/21 06:22 Pulse 70 05/17/21 06:22 Resp 18 05/17/21 06:22 BP 173/79 05/17/21 06:22 Pulse Ox 98 05/04/21 16:22 Intake & Output 05/16/21 05/17/21 05/17/21 18:59 06:59 18:59 Weight 68.9 kg Assessment Bipolar disorder, type I versus schizoaffective disorder, bipolar type Plan: -Patient continues to meet criteria for inpatient psychiatric admission for symptom stabilization and safety. Patient has been petitioned and certified. The patient did not defer. The patient is scheduled for court on 05/18/21. -Medications: Continue invega 9 mg by mouth at bedtime for mood stabilization/psychosis. If no further improvement will consider switch to prolixin. Continue Trazodone 50 mg at bedtime for insomnia Continue to encourage medication adherence. -When necessary Ativan and Haldol for agitation/aggression. -SW on board for discharge planning. Encouraged the patient to participate in milieu.
[2021-05-17] MEDS: PALIPERIDONE 3 MG TAB.ER.24 PO SCH ×2 (21:07→21:13)
[2021-05-17] MEDS: traZODone HCL 50 MG TAB PO SCH ×2 (21:07→21:13)
[2021-05-18] MEDS: IBUPROFEN 400 MG TAB PO PRN ×3 (02:17→17:37)
--- NOTE | 2021-05-18 10:54 | P.PN ---
Progress Note - Text Progress Note Date: 05/18/21 Interval History: Patient was seen wandering the hallways and refused to speak to this provider. The patient only states that she refuses to acknowledge the validity of the court. She reports that she will refuse to be experimented on and will refuse this doctor's recommendations and testimony. She reports she will refuse a court order. She states she does not want to participate in court and will not attend. Mental Status Exam: General Appearance: Patient appears to be stated age is alert, but not directable and uncooperative. Dressed in her home clothes. Poor dentition. Behavior: Patient is pacing the hallways and is also noted to be speaking to herself as she wanders the hallways. Speech: Patient's speech is rapid, pressured, and spontaneous. Mood/Affect: Mood is angry. Affect is irritable. Suicidality/Homicidality: Unable to assess. Perceptions: Unable to assess. Though content/process: Unable to assess. Memory and concentration: Unable to assess. Judgment and insight: Very poor Vital Signs Temp 97.4 F L 05/17/21 06:22 Pulse 70 05/17/21 06:22 Resp 18 05/17/21 06:22 BP 173/79 05/17/21 06:22 Pulse Ox 98 05/04/21 16:22 Assessment Bipolar disorder, type I versus schizoaffective disorder, bipolar type Plan: -Patient continues to meet criteria for inpatient psychiatric admission for symptom stabilization and safety. Patient has been petitioned and certified. The patient did not defer. The patient is scheduled for court today. -Medications: Discontinue invega and trazodone. Start prolixin 1 mg twice daily for psychosis. Continue to encourage medication adherence. Once court ordered, will place as needed IM medication to ensure adherence. -When necessary Ativan and Haldol for agitation/aggression. -SW on board for discharge planning. Encouraged the patient to participate in milieu.
[2021-05-18] MEDS: LIDOCAINE 5% PATCH TOPICAL SCH (11:39)
[2021-05-19] MEDS: IBUPROFEN 400 MG TAB PO PRN ×3 (00:38→16:43)
[2021-05-19] MEDS ORDERED: flUPHENAZine 2.5 MG/ML (MDV) 10 ML VIAL IM PRN (09:47)
--- NOTE | 2021-05-19 10:27 | P.PN ---
Progress Note - Text Progress Note Date: 05/19/21 Interval History: Patient was seen wandering the hallways and was agreeable to speak with medical technical writer in the hallway. She is currently not reporting any suicidal or homicidal ideation, intention, or plan. She is denying any auditory or visual hallucinations. She is denying any paranoia or other delusions. When discussing that she is currently on a court order, the patient was on the long rant that his uninterruptible an ongoing even after the provider leaves the patient's sight. The patient states that "[place] is a [place] and I do not have to take any of these medications that the devil was trying to put on me." She continues to go on a long rant regarding yarsani and lists multiple names of Brady, Beelzebub, and others that are trying to cause her to do wrong. She reports she has a right to "boomerang the poison back to the psychiatrists." The patient was unable to be redirected. Mental Status Exam: General Appearance: Patient appears to be stated age is alert, but not directable and uncooperative. Dressed in her home clothes. Poor dentition. Behavior: Psychomotor activity is elevated. Eye contact is intense. Speech: Patient's speech is rapid, pressured, and spontaneous. Mood/Affect: Mood is angry. Affect is irritable. Suicidality/Homicidality: Patient denies any suicidal or homicidal ideation, intention, and/or plan. Perceptions: Patient denies any auditory or visual hallucinations. Though content/process: Very religiously preoccupied. Grandiose. Thought process appears to fixate on yarsani. Memory and concentration: Grossly intact for the purposes of this session. Judgment and insight: Very poor Vital Signs Temp 97.0 F L 05/19/21 00:39 Pulse 73 05/19/21 00:39 Resp 18 05/19/21 00:39 BP 139/68 05/19/21 00:39 Pulse Ox 94 L 05/19/21 00:39 Assessment Bipolar disorder, type I versus schizoaffective disorder, bipolar type Plan: -Patient continues to meet criteria for inpatient psychiatric admission for symptom stabilization and safety. The patient has been court ordered as of 05/18/2021. -Medications: *Prolixin 1 mg by mouth at bedtime. As the patient is under court order, if she refuses, she is to receive Prolixin IM 1.25 mg. Continue to encourage medication adherence. We will consider the addition of a mood stabilizer such as Depakote or lithium. -When necessary Ativan and Haldol for agitation/aggression. -SW on board for discharge planning. Encouraged the patient to participate in milieu.
[2021-05-19] MEDS: LIDOCAINE 5% PATCH TOPICAL SCH (11:34)
[2021-05-20] MEDS: IBUPROFEN 400 MG TAB PO PRN (05:43)
[2021-05-20] MEDS: LIDOCAINE 5% PATCH TOPICAL SCH ×2 (08:59→12:11)
[2021-05-20] MEDS ORDERED: flUPHENAZine 2.5 MG/ML (MDV) 10 ML VIAL IM PRN (10:15)
--- NOTE | 2021-05-20 10:53 | P.PN ---
Progress Note - Text Progress Note Date: 05/20/21 Interval History: Patient was seen wandering the hallways and was agreeable to speak with designer writer in the common room with no one else present. Patient expresses that she is very upset that she has medications forced upon her. She continues to be very religiously preoccupied and is endorsing significant paranoia and delusions today. The patient reports that this is all the work of a "[employer]" who "lies and slanders to get all the seniors in [place] on drugs." She continues to state that Muslims and Communists are trying to take over [place] which "is founded on Democracy and Judeo-Mormon values." She reports no side effects of her medications. She denies any suicidal or homicidal ideation, intention, and/or plan. She reports no auditory or visual hallucinations. Mental Status Exam: General Appearance: Patient appears to be stated age is alert, difficult to direct but is cooperative. Dressed in her home clothes. Poor dentition. Behavior: Psychomotor activity is elevated. Eye contact is intense. Speech: Patient's speech is rapid, pressured, and spontaneous. Mood/Affect: Mood is angry. Affect is angry. Suicidality/Homicidality: Patient denies any suicidal or homicidal ideation, intention, and/or plan. Perceptions: Patient denies any auditory or visual hallucinations. Though content/process: Very religiously preoccupied. Paranoid. Thought process appears to fixate on sabianist. Memory and concentration: Grossly intact for the purposes of this session. Judgment and insight: Very poor Vital Signs Temp 97.5 F L 05/20/21 05:44 Pulse 67 05/20/21 05:44 Resp 18 05/20/21 05:44 BP 129/89 05/20/21 05:44 Pulse Ox 94 L 05/19/21 00:39 Assessment Bipolar disorder, type I versus schizoaffective disorder, bipolar type Plan: -Patient continues to meet criteria for inpatient psychiatric admission for symptom stabilization and safety. The patient has been court ordered as of 05/18/2021. -Medications: Increase Prolixin to 2 mg by mouth at bedtime. As the patient is under court order, if she refuses, she is to receive Prolixin IM 2.5 mg. Can titrate this medication in response to patient's presentation. Likely transition to SAEZ Prolixin Decanoate. Continue to encourage medication adherence. We will consider the addition of a mood stabilizer such as Depakote or lithium over the weekend. -When necessary Ativan and Haldol for agitation/aggression. -SW on board for discharge planning. Encouraged the patient to participate in milieu.
[2021-05-21] MEDS: IBUPROFEN 400 MG TAB PO PRN ×2 (11:24→18:57)
[2021-05-21] MEDS: LIDOCAINE 5% PATCH TOPICAL SCH (11:26)
--- NOTE | 2021-05-21 15:24 | P.PN ---
Progress Note - Text Progress Note Date: 05/21/21 Clinical Problems: Bipolar disorder, type I versus schizoaffective disorder, bipolar type Interim history: I reviewed the medical record and interviewed the patient. She had the probate hearing on 04/21/2021 and received a 60/90 day combined treatment order. After the hearing her psychiatrist started Prolixin titrating dose to 2 mg daily. Nursing reports that she refused oral Prolixin last night and became angry when they administered 2.5 mg IM as ordered by the psychiatrist. I observed her walking the hallways talking loudly to herself and gesturing with her hands. She had no specific complaints or concerns Mental status exam: She presented as a disheveled appearing elderly female who was internally preoccupied.. She had no prominent physical abnormalities. She had a bright facial expression. She showed no abnormality of psychomotor activity. Her speech was spontaneous with increased rate and rhythm. Affect was elevated but appropriate. She did not express suicidal ideation or wishes. She did not express clear ideas of reference, thought insertion, thought broadcasting. Her thinking was not coherent or organized. She appeared to be responding to internal stimuli. Assessment: She is seriously mentally ill and minimally improve from admission. She has no insight or understanding of illness or need for treatment. Plan: Continue inpatient treatment. Safety precautions. Continue Prolixin 2 mg at bedtime and titrated according to response and tolerance. Prolixin IM if she refuses the oral dose. Haldol and/or Ativan for anxiety, agitation acute psychosis. Consider long-acting Prolixin prior to discharge. Continue participation in therapeutic groups and activities. Evaluate clinical status response to treatment daily basis.
[2021-05-22] MEDS: LIDOCAINE 5% PATCH TOPICAL SCH (08:44)
[2021-05-22] MEDS: IBUPROFEN 400 MG TAB PO PRN ×2 (08:45→16:52)
--- NOTE | 2021-05-22 14:21 | P.PN ---
Progress Note - Text Progress Note Date: 05/22/21 Clinical Problems: Bipolar disorder, type I versus schizoaffective disorder, bipolar type Interim history: I reviewed the medical record and interviewed the patient. Her only complaint was "arthritis pain". She denied problems with sleep or appetite. She is much less restless, agitated and irritable than on admission. She was compliant with oral dose of Prolixin last night. Mental status exam: She presented as a disheveled appearing elderly female who was not internally preoccupied. She had no prominent physical abnormalities. She had a didn't facial expression. She showed no abnormality of psychomotor activity. Her speech was spontaneous with normal rate and rhythm. Affect was stable and appropriate. She did not express suicidal ideation or wishes. She did not express clear ideas of reference, thought insertion, thought broadcasting. Her thinking was not coherent or organized. She appeared to be responding to internal stimuli. Assessment: She is seriously mentally ill and moderately improve from admission. She has no insight or understanding of illness or need for treatment. Plan: Continue inpatient treatment. Safety precautions. Continue Prolixin 2 mg at bedtime and titrated according to response and tolerance. Prolixin IM if she refuses the oral dose. Haldol and/or Ativan for anxiety, agitation acute psychosis. Consider long-acting Prolixin prior to discharge. Continue participation in therapeutic groups and activities. Evaluate clinical status response to treatment daily basis.
[2021-05-23] MEDS: IBUPROFEN 400 MG TAB PO PRN ×3 (08:06→23:51)
[2021-05-23] MEDS: LIDOCAINE 5% PATCH TOPICAL SCH (11:14)
--- NOTE | 2021-05-23 15:41 | PN ---
PROGRESS NOTE DATE OF SERVICE: 05/23/2021. CHIEF COMPLAINT: The patient was admitted on petition. She had psychotic symptoms where she was expressing paranoid ideas and was hyper religion. INTERVAL HISTORY: Patient has been doing fairly well. She had a quiet day yesterday. She comes out on the unit. She will interact with others. She has been taking medications without any difficulties or significant complaints. She did attend one group yesterday though she prefers mainly to engage in personal activities. She will interact with others. She slept fairly well last night. Today she has been out and about. She attended 2 groups today. Overall, she has been in a good mood. She had no complaints relating to medications. MENTAL STATUS: Patient gave fairly good eye contact. She responded to questions with brief answers. She had a relaxed manner. Her affect was in a reasonable range. She smiled some. Her mood was even. She did not appear to be distressed. She continues to make some statements suggestive of some paranoid and religion delusions. She voiced no thoughts of harm. Cognition was clear. ASSESSMENT: I will continue the current diagnosis and treatment plan. I will continue psychotropic medications the same. Patient has been making progress. She has been cooperative with care and medications. We will focus on stabilization and discharge planning. MMODL / IJN: [id number] /
[2021-05-24] MEDS: IBUPROFEN 400 MG TAB PO PRN ×2 (07:58→16:17)
[2021-05-24] MEDS: LIDOCAINE 5% PATCH TOPICAL SCH (08:00)
--- NOTE | 2021-05-24 14:09 | PN ---
PROGRESS NOTE DATE OF SERVICE: 05/24/2021. CHIEF COMPLAINT: The patient was admitted on petition. She had psychotic symptoms where she was expressing paranoid ideas and was hyper jewish. INTERVAL HISTORY: The patient has been doing fair. Overall she seems to be maintaining her self. She will come out in the day area. She seems comfortable in the milieu. She will sit in the various rooms with other people. It is not clear if she interacts too much with others or pays much attention to things going on around her. She will attend some of the groups and seems comfortable in group. She voiced no complaints today. She is sleeping well at night. She has a reasonable appetite. We discussed discharge planning issues and she seemed to be comfortable with continuing the hospital stay until things are finalized in regards to her living situation. She tolerates psychotropic medications. MENTAL STATUS: Patient gave fair eye contact. Psychomotor activity was a little slowed. She answered questions with brief responses. She did not say a lot. Her affect was a little limited, though not to a significant degree. She had a friendly manner. Her mood was reserved, though not down her depressed. She did not appear to be distressed. She continues to show some degree of thought disorder with paranoid delusions and hyper jewish thinking. She voices no thoughts of harm. Cognition was clear. ASSESSMENT: I will continue the current diagnosis and treatment plan. I will continue to psychotropic medications the same, though we will continue to titrate up on Prolixin. The dose will be increased to 5 mg twice a day. We will focus on stabilization and discharge planning. MMOTTO / SARAHN: [id number] /
[2021-05-25] MEDS: IBUPROFEN 400 MG TAB PO PRN ×4 (00:06→23:54)
[2021-05-25] MEDS: LIDOCAINE 5% PATCH TOPICAL SCH (08:26)
--- NOTE | 2021-05-25 15:07 | PN ---
PROGRESS NOTE DATE OF SERVICE: Service 05/25/2021. CHIEF COMPLAINT: The patient was admitted on petition. She had psychotic symptoms where she was expressing paranoid ideas and was hyper mandaen. INTERVAL HISTORY: Patient has been doing fair. She continues in about the same way that she has been. She will have some ups and downs in her mood. She will come out in the day area she will interact a little with others. She seems comfortable in the milieu, though mostly she seems to focus on her personal activities. She did not attend groups yesterday. She said she slept fair last night. Today she has been up and doing about the same. She says that she is uncomfortable with her medications today, though she was unclear about specifics of that. She has been out in the day area. She wanders about. She is just a little distressed today, though not to a significant degree. She has been generally cooperative with care. She has been reluctant today take her oral medications. She appears to tolerate her medications well. MENTAL STATUS: Patient gave fair eye contact. She was somewhat restless. She answered questions with brief responses mostly. She kept focusing on some vague complaints about her medications, though she did not provide much for details. Her affect was somewhat intense, her mood dysphoric, she was moderately distressed. She continues to show some paranoid thinking. She did not show any indications of thought thoughts of harm. She was oriented to circumstances and surroundings. ASSESSMENT: I will continue the current diagnosis and treatment plan. I will continue psychotropic medications the same. We will utilize IM Prolixin if she declines to take oral Prolixin. We will continue her on her current dose of 5 mg twice a day. I will look to increase the dose further. We will focus on stabilization and discharge planning. MMODL / IJN: [id number] /
[2021-05-26] MEDS: IBUPROFEN 400 MG TAB PO PRN ×2 (08:07→15:57)
--- NOTE | 2021-05-26 09:50 | PN ---
PROGRESS NOTE DATE OF SERVICE: 05/26/2021 CHIEF COMPLAINT: The patient was admitted on petition. She had psychotic symptoms where she was expressing paranoid ideas and was hyperreligious. INTERVAL HISTORY: Patient has been doing fair. She had some difficulties yesterday. She talked about being distressed that she was on medications. She attended two groups yesterday. In one group, she did talk about how she thinks medicines make her feel anxious and jittery. She was observed by staff to be calm and not showing any restlessness. She was also able to share her thoughts clearly. She was out in the day area. She slept fairly well last night. Today she has been up. When I saw her this morning, she had a fairly big smile on her face. She said she was feeling well. She had a friendly manner. When I asked her about being distressed yesterday her only idea about it was that maybe the weather had changed and when the barometer drops, it affects her mood. She says she is in a good mood today. She has a good output look. She was getting ready to attend the goals group this morning. She has been taking her medications without difficulty. She has not had issues with titrating up on her Prolixin. There will be consideration for starting her on the long-acting injectable. MENTAL STATUS EXAM: The patient gave good eye contact. She answered questions appropriately. Her thoughts were clear and coherent. She was spontaneous and interactive. Her affect was in a good range. She smiled. She was friendly. Her mood was even. She almost had an upbeat manner. She was not distressed in any way. She voiced no thoughts of unreality. She did not respond to internal stimuli. There was no thoughts about harm. Cognition was clear. ASSESSMENT: I will continue the current diagnosis and treatment plan. I will continue psychotropic medications the same. Prolixin has been titrated up to 10 mg twice a day. We can aim towards initiating Prolixin Decanoate. I briefly discussed discharge planning issues with the patient. We will focus on stabilization and discharge planning. MMOTTO / LAWSON: [id number] /
[2021-05-26] MEDS: LIDOCAINE 5% PATCH TOPICAL SCH (12:11)
[2021-05-27] MEDS: IBUPROFEN 400 MG TAB PO PRN ×3 (01:08→17:29)
[2021-05-27] MEDS: LIDOCAINE 5% PATCH TOPICAL SCH (12:51)
--- NOTE | 2021-05-27 19:10 | PN ---
PROGRESS NOTE DATE OF SERVICE: 05/27/2021. CHIEF COMPLAINT: The patient was admitted on petition. She had psychotic symptoms, where she was expressing paranoid ideas and was hyper-mormon. INTERVAL HISTORY: Patient has been doing fair. She had a quiet day yesterday. She comes out on the unit, mostly she keeps to herself. She will carry a number of books with her and at times will appear as though she is reading through the books. It is unclear how much she engages in the reading material. She seems to be comfortable out on the unit. She will attend groups and generally has been appropriate. She does show some paranoid thinking in the groups. Also, she has been observed talking to herself with no one around that she would actually be talking to. She slept well last night, today she has been up. Overall she continues the same. She continues to complain about her medications, saying that they make her restless. I asked if she would like to try some medication that might help ameliorate that, she declined. She has been accepting her Prolixin, however. She has generally been appropriate in her behavior. She has been compliant with with treatment. MENTAL STATUS EXAM: Patient was sitting in the day area. She elected not come down to the office. She gave a little eye contact. She responded to questions appropriately. Her affect was a little constricted, though not significantly so. She had a calm manner. Her mood was reserved, though not clearly down or depressed. She did not appear to be distressed. She made some comments about not liking her medications, though beyond that she did not appear to be concerned about things going on, on the unit. She continues to show response to internal stimuli. She voices no thoughts of harm. She appears to be oriented to her circumstances and surroundings. ASSESSMENT: I will continue the current diagnosis and treatment plan. I will continue psychotropic medications the same. Currently, she is taking Prolixin 10 mg twice a day. The aim is to switch her over to a long-acting injectable. We continue to look towards appropriate housing for the patient and referral [facility]. We will focus on stabilization and discharge planning. MMSABINAL / SARAHN: [id number] /
[2021-05-28] MEDS: IBUPROFEN 400 MG TAB PO PRN ×3 (00:54→18:45)
[2021-05-28] MEDS: LIDOCAINE 5% PATCH TOPICAL SCH (14:01)
--- NOTE | 2021-05-28 14:36 | P.PN ---
Progress Note - Text Progress Note Date: 05/28/21 Interval History: Patient was seen in the room and was directable and agreeable to speak with video game script writer . Patient presented to the hospital on 05/04/2021. As previously noted, the patient was brought to the ER by EMS after being at a restaurant in [place]. Patient reports she was trying to go to [place] to be with her cousins in [place] as she states that "Muslims have taken over [place], [place]." Furthermore, the patient reports that Polish Christians are being "experimented on" and being given bad prescriptions. She also suspects that this is a ploy from the Muslims or taking over. The patient does express that she is going to [place] to escape all of this.. Patient denies any auditory, visual hallucinations and denies any paranoia or delusions. Patient denies any side effects from the medications and has been compliant with meds. Mental Status Exam: General Appearance: Patient appears to be stated age is alert, directable, and cooperative. Behavior: Patient is calmly seated without any agitated behavior. Speech: Patient's speech is fluent and nonpressured. Mood/Affect: Mood is improving mildly, affect is congruent and constricted. Suicidality/Homicidality: Patient denies having any suicidal or homicidal ideation intent or plan. Perceptions: Patient denies any visual hallucinations and denies any auditory hallucinations Though content/process: There is no evidence of any delusional thought content and thought process is linear and goal-directed. Memory and concentration: AOX3, grossly intact for the purposes of this session Judgment and insight: Improving mildly Assessment [Bipolar disorder, type I versus schizoaffective disorder, bipolar type Plan: -Patient continues to meet criteria for inpatient psychiatric admission for symptom stabilization and safety. -Medications: Continue medication as before -When necessary Ativan and Haldol for agitation/aggression. -SW on board for discharge planning. Encouraged the patient to participate in milieu.
[2021-05-29] MEDS: IBUPROFEN 400 MG TAB PO PRN ×3 (01:40→16:56)
--- NOTE | 2021-05-29 11:02 | P.PN ---
Progress Note - Text Progress Note Date: 05/29/21 Interval History: Patient was seen in the room and was directable and agreeable to speak with typewriter mechanic. Patient was brought to the ER by EMS after being at a restaurant in [place]. Patient reports she was trying to go to [place] to be with her cousins in [place] as she states that "Muslims have taken over [place], [place]." Furthermore, the patient reports that [place] Christians are being "experimented on" and being given bad prescriptions.. At this time patient denies any suicidal or homical ideations, intent or plan. Patient denies any auditory, visual hallucinations and denies any paranoia or delusions. Patient denies any side effects from the medications and has been compliant with meds. Mental Status Exam: General Appearance: Patient appears to be stated age is alert, directable, and cooperative. Behavior: Patient is calmly seated without any agitated behavior. Speech: Patient's speech is fluent and nonpressured. Mood/Affect: Mood is improving mildly, affect is congruent and constricted. Suicidality/Homicidality: Patient denies having any suicidal or homicidal ideation intent or plan. Perceptions: Patient denies any visual hallucinations and denies any auditory hallucinations Memory and concentration: AOX3, grossly intact for the purposes of this session Judgment and insight: Improving mildly Assessment Bipolar disorder, type I versus schizoaffective disorder, bipolar type Plan: -Patient continues to meet criteria for inpatient psychiatric admission for symptom stabilization and safety. -Medications: Continue medication as before -When necessary Ativan and Haldol for agitation/aggression. -SW on board for discharge planning. Encouraged the patient to participate in milieu.
[2021-05-29] MEDS: LIDOCAINE 5% PATCH TOPICAL SCH (11:47)
[2021-05-30] MEDS: IBUPROFEN 400 MG TAB PO PRN ×3 (00:45→21:15)
[2021-05-30] MEDS: LIDOCAINE 5% PATCH TOPICAL SCH (08:51)
[2021-05-30] MEDS ORDERED: fluPHENAZine DECANOATE 25 MG/ML 5ML MDV IM ONE (12:15)
--- NOTE | 2021-05-30 14:17 | P.PN ---
Progress Note - Text Progress Note Date: 05/30/21 Interval History: Patient was seen wandering the hallways and was directable and agreeable to speak with auto service writer in the office. The patient continues to be quite religiously preoccupied and noted to be speaking to herself. Her mood continues to be quite labile. The patient has been adherent with her medications and has been tolerating them well and is not reporting any significant side effects. The patient was informed that our plan is to transition her to a long-acting injectable Prolixin Decanoate, after being informed of this however, the patient became very agitated and stated "if you inject me, God will inject you." The interview was then terminated. Mental Status Exam: General Appearance: Patient appears to be stated age is alert, directable, and intermittently cooperative. Behavior: Patient is calmly seated without any agitated behavior. Patient katie me agitated after being informed that she'll receive the long-acting injectable. Speech: Patient's speech is fluent. Hyperverbal, pressured at times. Mood/Affect: Mood is upset and angry. Affect is congruent. Suicidality/Homicidality: Patient denies having any suicidal or homicidal ideation intent or plan. Perceptions: Patient denies any visual hallucinations and denies any auditory hallucinations Though content/process: Patient continues to be religiously preoccupied. Memory and concentration: AOX3, grossly intact for the purposes of this session Judgment and insight: Poor. Vital Signs Temp 96.6 F L 05/30/21 00:54 Pulse 64 05/30/21 00:54 Resp 18 05/30/21 00:54 BP 153/70 05/30/21 00:54 Pulse Ox 94 L 05/19/21 00:39 Intake & Output 05/29/21 05/30/21 05/30/21 18:59 06:59 18:59 Weight 67.5 kg Assessment Schizoaffective disorder, bipolar type Plan: -The patient has been court ordered as of 05/18/21. She continues to meet criteria for inpatient psychiatric hospitalization. -Medications: We'll administer Prolixin Decanoate 25 mg IM today. Discontinue oral Prolixin. Consider augmentation with mood stabilizers such as Depakote or lithium. -When necessary Ativan and Haldol for agitation/aggression. -SW on board for discharge planning. Encouraged the patient to participate in milieu.
[2021-05-31] MEDS: IBUPROFEN 400 MG TAB PO PRN ×2 (08:16→16:02)
[2021-05-31] MEDS: LIDOCAINE 5% PATCH TOPICAL SCH (08:18)
--- NOTE | 2021-05-31 14:02 | P.PN ---
Progress Note - Text Progress Note Date: 05/31/21 Interval History: Patient was seen wandering the hallways and was not agreeable or directable to speak with specification writer.the patient expresses her disdain on receiving the Prolixin Decanoate injection yesterday. She reports that "God will inject you too." She refuses to participate in the psychiatric interview today but rants nonsensically multiple religiously themes statements.the only concern she expresses aside from her anger is that she is continuing to experience joint pain in her hands, wrists, knees, back, and hips. Mental Status Exam: General Appearance: Patient appears to be stated age is alert, but not directable or cooperative. Behavior: patient is agitated. Speech: Patient's speech is fluent. Hyperverbal, pressured at times. Mood/Affect: Mood is upset and angry. Affect is congruent. Suicidality/Homicidality: unable to assess Perceptions: unable to assess Though content/process: Patient continues to be religiously preoccupied. Memory and concentration: AOX3, grossly intact for the purposes of this session Judgment and insight: Poor. Vital Signs Temp 96.6 F L 05/30/21 00:54 Pulse 64 05/30/21 00:54 Resp 18 05/30/21 00:54 BP 153/70 05/30/21 00:54 Pulse Ox 94 L 05/19/21 00:39 Intake & Output 05/30/21 05/31/21 05/31/21 18:59 06:59 18:59 Weight 67.5 kg Assessment Schizoaffective disorder, bipolar type Plan: -The patient has been court ordered as of 05/18/21. -Medications: Prolixin Decanoate 25 mg IM was administered on 05/30/2021. -When necessary Ativan and Haldol for agitation/aggression. -SW on board for discharge planning. Encouraged the patient to participate in milieu.
[2021-06-01] MEDS: IBUPROFEN 400 MG TAB PO PRN ×3 (00:01→17:17)
[2021-06-01] MEDS: LIDOCAINE 5% PATCH TOPICAL SCH (11:45)
--- NOTE | 2021-06-01 11:56 | P.DS ---
Providers Date of admission: 05/04/21 15:59 Expected date of discharge: 06/01/21 Attending physician: Fidel Enciso MD Consults: 05/04/21 16:05 Consult Physician Routine Consulting Provider: Ingris Andrews Consult Reason/Comments: H and P Do you want consulting provider notified?: Yes Primary care physician: Physician Nonstaff - Discharge Diagnosis(es) (1) Schizoaffective disorder, bipolar type Current Visit: Yes Status: Acute Priority: High Hospital Course: Admission HPI: Patient is a single, unemployed, homeless, 65 year-old female who was admitted for psychosis. Patient presented to the hospital on 05/04/2021. As previously noted, the patient was brought to the ER by EMS after being at a restaurant in [place]. Patient reports she was trying to go to [place] to be with her cousins in [place] as she states that "Muslims have taken over [place], [place]." Furthermore, the patient reports that Colombian Christians are being "experimented on" and being given bad prescriptions. She also suspects that this is a ploy from the Muslims or taking over. The patient does express that she is going to [place] to escape all of this. She does state that she did not inform her family members that she'll be going to [place], and is quite confused at this provider asking whether she informed them were not stating that she does not need to inform them. The patient is noted to be quite resourceful, going from Motel room to motel room in [facility] and in the surrounding area. There is a question whether she was recently admitted to a psychiatric unit in [place]. The patient does express strong disdain for the mental health profession, stating that she does not want to be experimented on by the psychiatrists in the mental health system. The patient is quite religiously preoccupied, and replies to this provider, "they tried to put me on medications but I prayed to God and had them boomerang it back to them." The patient is unable to answer any further questions regarding any other symptoms. She continues to display pressured speech and is uncooperative with the rest of the interview. Hospital course: Upon admission to the unit patient was initially presenting with significant manic and psychotic symptoms including pressured speech, samaritan preoccupation, grandiosity, and elevated psychomotor activity. The patient will also noted not to sleep. The patient was not agreeable to treatment or the admi ssion to the hospital. She therefore was refusing medications and was subsequently certified. The patient was eventually agreeable to trialing some oral Invega. She tolerated the Invega well but displayed no significant improvements in regards to her target symptoms of psychosis. She continued to be disruptive in the milieu and in groups often ranting about how "Muslims or taking over" and samaritan ideations. The patient was eventually court ordered on a 05/18/21. The patient was then placed on Prolixin to control her psychotic symptoms and if she was to refuse her oral Prolixin she was to be given IM Prolixin. The patient expressed significant disdain for this and was angry at this provider. Eventually, the Prolixin was titrated to final dose of 10 mg twice a day and the patient displayed significant improvement. Although she continued to be somewhat religiously preoccupied, she was less forthcoming with any further delusions and was less disruptive in the milieu. The patient was then administered Prolixin Decanoate 25 mg IM on 05/30/2021. On the day of discharge, the patient is not any suicidal or homicidal ideation, intention, and/or plan. She is not reporting any auditory or visualizations. She is denying any overt paranoia but continues to maintain a belief that Americans are being taken over. She continues to be samaritan but is less forthcoming. She is tolerating her Prolixin injection well. She was informed that she needs to follow-up with outpatient appointments. Prior to this admission, the patient was quite resourceful staying at different hotels in [facility]. As she is a transplant from [place], and has no home currently present, patient is deemed resourceful and safe enough with enough insight and judgment to return back to a [facility]. The patient took care of her own hygiene and grooming and displayed no issues taking care of her activities of daily living. She was encouraged him counseled on her medications and need for regular adherence as well as to follow-up with outpatient appointments. Mental status exam: General Appearance: Patient appears to be stated age is alert, pleasant, and cooperative. Patient is in no acute distress and has fair hygiene and grooming. Approach is friendly today. Behavior: Patient is calmly seated without any agitated behavior. Speech: Patient's speech is fluent and nonpressured. Mood/Affect: Patient reports their mood is "good", affect is congruent and euthymic to bright. Suicidality/Homicidality: Patient denies having any suicidal or homicidal ideation intent or plan. Perceptions: Patient denies any auditory or visual hallucinations. Though content/process: There is some delusional thoughts but less forthcoming. Thought process is linear and goal-directed. Memory and concentration: AOX3, grossly intact for the purposes of this session. Can spell "WORLD" backwards correctly. Judgment and insight: Improved Vital Signs Temp 96.8 F L 06/01/21 06:46 Pulse 72 06/01/21 06:46 Resp 18 06/01/21 06:46 BP 144/70 06/01/21 06:46 Pulse Ox 94 L 05/19/21 00:39 Impression: Schizoaffective disorder, bipolar type Homelessness Plan: -Continue with discharge today as patient has improved and stabilized psychiatrically and is not currently an imminent threat to herself and/or others. -Continue medications: Prolixin Decanoate 25 mg IM was administered on 05/30/21. She is scheduled for her next dose on 06/20/21. -Patient was counseled on the need for medication compliance and appropriate follow-up at mental health and also primary care for medical issues. Patient verbalized understanding and agreed. -Social work also to arrange for patients follow up appointments with [facility] for psychiatric care along with follow up with primary care provider. -Patient counseled on abstaining from recreational drugs and marijuana and alcohol. Was informed/educated on the adverse effects on their physical and mental health. Patient verbally agreed and understood. -Patient was instructed to return to the hospital or seek immediate medical care if their psychiatric or medical symptoms do worsen or reoccur. -Psychoeducation and supportive therapy provided to patient. Risks and benefits of pharmacological treatment versus the risks and benefits of nontreatment weight and discussed. Informed consent discussion held. Common side effects of psychotropics discussed such as, but not limited to headache, GI disturbance, sexual dysfunction, movement disorders, sedation, and orthostatic hypotension. Life threatening and blackbox warnings of prescribed medications also discussed. Potential risks of operating a vehicle or heavy machinery discussed with patient at length. Advised on importance of compliance and a reliable and responsible manner. Patient advised to review FDA consumer labeling of all medications prior to taking. Patient verbalized understanding of potential risks, and agrees with current treatment plan. Patient advised to medically contact physician/emergency personnel if any acute changes in condition occur. Laboratory Results WBC 8.6 k/uL (3.8-10.6) 05/05/21 09:36 RBC 5.06 m/uL (3.80-5.40) 05/05/21 09:36 Hgb 15.0 gm/dL (11.4-16.0) 05/05/21 09:36 Hct 46.0 % (34.0-46.0) 05/05/21 09:36 MCV 90.8 fL (80.0-100.0) 05/05/21 09:36 MCH 29.7 pg (25.0-35.0) 05/05/21 09:36 MCHC 32.7 g/dL (31.0-37.0) 05/05/21 09:36 RDW 12.5 % (11.5-15.5) 05/05/21 09:36 Plt Count 349 k/uL (150-450) 05/05/21 09:36 MPV 6.2 05/05/21 09:36 Neutrophils % 71 % 05/05/21 09:36 Lymphocytes % 18 % 05/05/21 09:36 Monocytes % 6 % 05/05/21 09:36 Eosinophils % 3 % 05/05/21 09:36 Basophils % 1 % 05/05/21 09:36 Neutrophils # 6.1 k/uL (1.3-7.7) 05/05/21 09:36 Lymphocytes # 1.6 k/uL (1.0-4.8) 05/05/21 09:36 Monocytes # 0.5 k/uL (0-1.0) 05/05/21 09:36 Eosinophils # 0.2 k/uL (0-0.7) 05/05/21 09:36 Basophils # 0.1 k/uL (0-0.2) 05/05/21 09:36 Sodium 139 mmol/L (137-145) 05/05/21 09:36 Potassium 4.8 mmol/L (3.5-5.1) 05/05/21 09:36 Chloride 103 mmol/L (98-107) 05/05/21 09:36 Carbon Dioxide 30 mmol/L (22-30) 05/05/21 09:36 Anion Gap 6 mmol/L 05/05/21 09:36 BUN 16 mg/dL (7-17) 05/05/21 09:36 Creatinine 0.71 mg/dL (0.52-1.04) 05/05/21 09:36 Est GFR (CKD-EPI)AfAm >90 (>60 ml/min/1.73 sqM) 05/05/21 09:36 Est GFR (CKD-EPI)NonAf 89 (>60 ml/min/1.73 sqM) 05/05/21 09:36 Glucose 80 mg/dL (74-99) 05/05/21 09:[address] Glu mg/dL 100 05/05/21 09:36 Hemoglobin A1c 5.1 % (4.0-6.0) 05/05/21 09:36 Calcium 10.0 mg/dL (8.4-10.2) 05/05/21 09:36 Total Bilirubin 0.5 mg/dL (0.2-1.3) 05/05/21 09:36 AST 21 U/L (14-36) 05/05/21 09:36 ALT 10 U/L (4-34) 05/05/21 09:36 Alkaline Phosphatase 81 U/L (38-126) 05/05/21 09:36 Creatine Kinase 73 U/L (30-135) 05/04/21 12:14 Total Protein 7.0 g/dL (6.3-8.2) 05/05/21 09:36 Albumin 4.5 g/dL (3.5-5.0) 05/05/21 09:36 Triglycerides 95.0 mg/dL (0.0-149.0) 05/05/21 09:36 Cholesterol 231 mg/dL (0-200) H 05/05/21 09:36 LDL Cholesterol, Calc 128.0 mg/dL (0.0-131.0) 05/05/21 09:36 VLDL Cholesterol, Calc 19.00 mg/dL (5.00-40.00) 05/05/21 09:36 HDL Cholesterol 84.0 mg/dL (40.0-60.0) H 05/05/21 09:36 Cholesterol/HDL Ratio 2.75 05/05/21 09:36 TSH 6.040 mIU/L (0.465-4.680) H 05/05/21 09:36 Free T4 0.78 ng/dL (0.78-2.19) 05/05/21 09:36 Urine Color Light Yellow 05/04/21 Unknown Urine Appearance Clear (Clear) 05/04/21 Unknown Urine pH 6.5 (5.0-8.0) 05/04/21 Unknown Ur Specific [place] 1.011 (1.001-1.035) 05/04/21 Unknown Urine Protein Negative (Negative) 05/04/21 Unknown Urine Glucose (UA) Negative (Negative) 05/04/21 Unknown Urine Ketones Negative (Negative) 05/04/21 Unknown Urine Blood Negative (Negative) 05/04/21 Unknown Urine Nitrite Negative (Negative) 05/04/21 Unknown Urine Bilirubin Negative (Negative) 05/04/21 Unknown Urine Urobilinogen <2.0 mg/dL (<2.0) 05/04/21 Unknown Ur Leukocyte Esterase Moderate (Negative) H 05/04/21 Unknown Urine RBC 2 /hpf (0-5) 05/04/21 Unknown Urine WBC 1 /hpf (0-5) 05/04/21 Unknown Urine Bacteria Rare /hpf (None) H 05/04/21 Unknown Urine Opiates Screen Negative ng/mL (Negative) 05/05/21 Unknown Urine Methadone Screen Negative ng/mL (Negative) 05/05/21 Unknown Ur Propoxyphene Screen Negative ng/mL (Negative) 05/05/21 Unknown Urine Barbiturates Negative ng/mL (Negative) 05/05/21 Unknown Ur Phencyclidine Scrn Negative ng/mL (Negative) 05/05/21 Unknown Ur Amphetamine Screen Negative ng/mL (Negative) 05/05/21 Unknown U Benzodiazepines Scrn Negative ng/mL (Negative) 05/05/21 Unknown Urine Cocaine Screen Negative ng/mL (Negative) 05/05/21 Unknown U Cannabinoids Screen Negative ng/mL (Negative) 05/05/21 Unknown Urine Alcohol Negative mg/dL (Negative) 05/05/21 Unknown Coronavirus (PCR) Not Detected (Not Detectd) 05/03/21 23:45 Allergies Allergy/AdvReac Type Severity Reaction Status Date / Time acetaminophen [From Tylenol] AdvReac Mild Unknown Verified 05/04/21 18:12 Patient Condition at Discharge: Stable Plan - Discharge Summary Discharge Rx Participant: No New Discharge Prescriptions: New fluPHENAZine decanoate [Prolixin Decanoate] 25 mg IM QMONTHLY #1 vial Ibuprofen [Motrin] 400 mg PO TID PRN 30 Days tab PRN Reason: Pain Discontinued Ibuprofen [Motrin] 400 mg PO Q6HR PRN PRN Reason: Pain Discharge Medication List Ibuprofen [Motrin] 400 mg PO TID PRN 30 Days tab 06/01/21 [Rx] fluPHENAZine decanoate [Prolixin Decanoate] 25 mg IM QMONTHLY #1 vial 06/01/21 [Rx] Follow up Appointment(s)/Referral(s): Nonstaff,Physician [Primary Care Provider] - 1-2 days Activity/Diet/Wound Care/Special Instructions: Activity and diet as tolerated. Avoid the use of street drugs and alcohol. Take all medications as prescribed. When you are in need of refills on your medications please contact your medical provider and/or outpatient psychiatrist to have this done. Please go to scheduled outpatient appointment for aftercare treatment. If symptoms return or become worse, call the crisis line at and/or go to the nearest emergency room for evaluation. Discharge Disposition: HOME SELF-CARE
[2021-06-02] MEDS: LIDOCAINE 5% PATCH TOPICAL SCH (08:23)
--- NOTE | 2021-06-02 11:43 | P.PN ---
Progress Note - Text Progress Note Date: 06/02/21 Interval History: Patient was seen seated in the milieu and was agreeable to speak with senior medical writer with no one else present. The patient is denying any suicidal or homicidal ideation, intention, and/or plan. He is denying any auditory or visual hallucinations. She is reporting no paranoia or other delusions. She denies any issues regarding her sleep or appetite. She continues to express her primary concern is her joint pain. The patient was supposed to be discharged ye sterday but refused to sign the treatment agreement or admit that she has a mental illness. The patient was informed that she was under court order for mental health treatment, to which she refutes. She becomes agitated and terminates the interview. Patient otherwise presents well with her current med regimen unless she is provoked by staff in regards to setting up her aftercare appointments. She attends groups appropriately and does not display a response to internal stimuli as she was doing so before. Mental Status Exam: General Appearance: Patient appears to be stated age is alert, but not directable or cooperative. Behavior: Patient is initially calm on approach becomes agitated when discussing aftercare plans. Speech: Patient is initially speaking in a normal tone and volume but when upset becomes loud, pressured, and hyperverbal. Mood/Affect: Mood is upset and angry. Affect is congruent. Suicidality/Homicidality: denies Perceptions: denies Though content/process: Patient continues to be religiously preoccupied but is less forthcoming. Memory and concentration: AOX3, grossly intact for the purposes of this session Judgment and insight: Poor insight and judgement. Vital Signs Temp 96.8 F L 06/01/21 06:46 Pulse 72 06/01/21 06:46 Resp 18 06/01/21 06:46 BP 144/70 06/01/21 06:46 Pulse Ox 94 L 05/19/21 00:39 Assessment Schizoaffective disorder, bipolar type Plan: -The patient has been court ordered as of 05/18/21. -Initial plan was to discharge. We are waiting to hear recommendations from Risk Management for the patient as she is unlikely to follow up with her aftercare appointments and is likely not to stay in the area. -Medications: Prolixin Decanoate 25 mg IM was administered on 05/30/2021. Next dose due on 06/20/2021. -When necessary Ativan and Haldol for agitation/aggression. -SW on board for discharge planning. Encouraged the patient to participate in milieu.
[2021-06-02] MEDS: IBUPROFEN 400 MG TAB PO PRN (23:13)
[2021-06-03] MEDS: LIDOCAINE 5% PATCH TOPICAL SCH (08:29)
[2021-06-03] MEDS: IBUPROFEN 400 MG TAB PO PRN ×2 (09:13→23:39)
--- NOTE | 2021-06-03 10:29 | P.PN ---
Progress Note - Text Progress Note Date: 06/03/21 Interval History: Patient was seen seated in the milieu and was agreeable to speak with securities underwriter with no one else present. the patient continues to deny any suicidal or homicidal ideation, intention, and/or plan. She is not reporting any auditory or visual hallucinations. She is denying any paranoia or other delusions. The patient is much more calm and cooperative today but continues to state that she will not sign anything or follow up with any outpatient appointments for her mental health. The patient maintains that she has no mental health issues and that her primary concern is her joint pain. She is otherwise not reporting any issues sleep or appetite. Despite education regarding her court order status, the patient refuses to acknowledge the court order. Mental Status Exam: General Appearance: Patient appears to be stated age is alert, is directable and cooperative today. Behavior: Patient is initially calm on approach becomes irritable when discussing aftercare plans. Speech: patient's speech is spontaneous, normal rate, tone, volume, and fluency. Mood/Affect: Mood is irritable. Affect is labile. Suicidality/Homicidality: Patient does not endorse any suicidal or homicidal ideation, intention, and/or plan. Perceptions: Patient denies any auditory or visual hallucinations. Though content/process: Patient does not overtly state any delusional thought content but can be observed on the unit reading the Bible out loud to herself. Memory and concentration: AOX3, grossly intact for the purposes of this session Judgment and insight: Poor insight and judgement. Vital Signs Temp 96.8 F L 06/01/21 06:46 Pulse 72 06/01/21 06:46 Resp 18 06/01/21 06:46 BP 144/70 06/01/21 06:46 Pulse Ox 94 L 05/19/21 00:39 Assessment Schizoaffective disorder, bipolar type Plan: -The patient has been court ordered as of 05/18/21. -Initial plan was to discharge. We are waiting to hear recommendations from Risk Management for the patient as she is unlikely to follow up with her aftercare appointments and is likely not to stay in the area. We will likely pursue guardianship for this patient. -Medications: Prolixin Decanoate 25 mg IM was administered on 05/30/2021. Next dose due on 06/20/2021. -When necessary Ativan and Haldol for agitation/aggression. -SW on board for discharge planning. Encouraged the patient to participate in milieu.
[2021-06-04] MEDS: IBUPROFEN 400 MG TAB PO PRN ×2 (08:33→17:15)
[2021-06-04] MEDS: LIDOCAINE 5% PATCH TOPICAL SCH (08:34)
--- NOTE | 2021-06-04 14:35 | P.PN ---
Progress Note - Text Progress Note Date: 06/04/21 S&O: Patient was seen for routine follow-up examination. She is not on any oral psychiatric medications. Apparently she is on her Prolixinn D 25 mg IM every 3 weeks and next one is due on 06-20-21. She continues to say that she was on her way to see her family in [place] and is waiting for the borders to open. She said she gets Social Security checks which goes directly to the bank and she can conteh it from certain machines or bailey. She does not have any other complaints or concerns. This is a white ambulatory female with adequate hygiene. She is polite and cooperative. Apparently she has refused to sign treatment plan or any other necessary paperworks. She said she was given blank papers with her name at the top and was asked to sign it at the bottom and she has been refusing to do so since it does not have any content. She does not show any psychomotor agitation or retardation. Her speech is spontaneous and goal-directed. Her mood is euthymic and affect is appropriate. She denies hallucinations and delusional thinking. However she says [place], where she is from, is a dangerous place to live because of the government housing and no one is doing anything about it. A&P: Continue current medications supervision and therapy. Placement is pending.
[2021-06-05] MEDS: IBUPROFEN 400 MG TAB PO PRN ×3 (01:13→17:08)
[2021-06-05] MEDS: LIDOCAINE 5% PATCH TOPICAL SCH ×2 (08:09→12:22)
--- NOTE | 2021-06-05 10:56 | P.PN ---
Progress Note - Text Progress Note Date: 06/05/21 S&O: Patient was seen for routine follow-up examination. She does not have any specific complaints or concerns. She continues to refuse to sign papers for her discharge and to take her medications. She has not been violent bizarre or threatening. But she usually carries a bag filled with some of her belongings. This is a white ambulatory female with adequate hygiene. She is polite friendly and fairly cooperative except for signing papers and taking medications. He does not show any psychomotor agitation or retardation. Her speech is spontaneous and goal-directed. But she tends to be over inclusive when she is discussing things she does not like to answer. Continues to feel that the government and some other people are after her and are causing trouble for her and the country. Denies hallucinations and does not appear to be responding to internal stimuli. Denies suicide and homicide thoughts. She is well oriented with good memory and fund of knowledge. Her insight is poor and judgment is impaired as evidenced by insisting that she does not have any mental problem and refusing to take medications and to sign papers. A&P: Continue therapy and supervision. She is due for her next shot of Prolixin D on 06-20-21.
[2021-06-06] MEDS: IBUPROFEN 400 MG TAB PO PRN ×2 (10:19→17:23)
[2021-06-06] MEDS: LIDOCAINE 5% PATCH TOPICAL SCH ×2 (11:03→13:51)
--- NOTE | 2021-06-06 11:32 | P.PN ---
Progress Note - Text Progress Note Date: 06/06/21 Interval History: Patient was seen seated in the milieu and was agreeable to speak with health technical writer with no one else present. The patient states she was born and raised in [place]. 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 She states this was in [place], [place]. Following this, the patient then began living in different motels in the [facility]. From there she decided to try and see family in [place], in particular her cousin Daxa Hoyt who is a Neurologist. The patient signed a SERGE for her cousin today. The patient reports she has siblings in [place] and [place] but she has not seen or heard from them in years. She reports no living relatives in [place]. She expresses no issues regarding her medications. She denies any suicidal or homicidal ideation, intention, and/or plan. She reports no auditory or visual hallucinations. She continues to deny that she has any mental health problem that requires medications or follow-up. Mental Status Exam: General Appearance: Patient appears to be stated age is alert, is directable and cooperative today. Good hygiene and grooming. Behavior: Patient is seated calmly without any agitated behavior. She reads the bible on the milieu. Speech: patient's speech is spontaneous, normal rate, tone, volume, and fluency. Mood/Affect: Mood is "good." Affect is bright and friendly today. Suicidality/Homicidality: Patient does not endorse any suicidal or homicidal ideation, intention, and/or plan. Perceptions: Patient denies any auditory or visual hallucinations. Though content/process: Patient does not overtly state any delusional thought c ontent but can be observed on the unit reading the Bible out loud to herself. Memory and concentration: AOX3, grossly intact for the purposes of this session Judgment and insight: Poor insight and judgement. Assessment Schizoaffective disorder, bipolar type Plan: -The patient has been court ordered as of 05/18/21. -Initial plan was to discharge. We will look at applying for guardianship for t his patient. -This provider left a HIPAA compliant message on Daxa Hoyt MD 's voicemail. -Medications: Prolixin Decanoate 25 mg IM was administered on 05/30/2021. Next dose due on 06/20/2021. -When necessary Ativan and Haldol for agitation/aggression. -SW on board for discharge planning. Encouraged the patient to participate in milieu.
[2021-06-07] MEDS: IBUPROFEN 400 MG TAB PO PRN ×3 (00:15→16:58)
--- NOTE | 2021-06-07 10:57 | P.PN ---
Progress Note - Text Progress Note Date: 06/07/21 Interval History: Patient was seen resting in bed comfortably reading her Bible is agreeable to speak with press writer in her room. Currently, the patient is not reporting any suicidal or homicidal ideation, intention, and/or plan. She is not reporting any auditory or visual hallucinations. She is denying any paranoia or other delusions. The patient is calmly seated and is friendly on approach today. She has been adherent with her medication is not endorsing any significant side effects at this time. She reports no issues regarding her sleep or appetite. She states that when she takes ibuprofen, joint pain improves and that she is able to sleep at night. The patient is scheduled for guardianship hearing tomorrow. Mental Status Exam: General Appearance: Patient appears to be stated age is alert, is directable and cooperative today. Good hygiene and grooming. Behavior: Patient is seated calmly without any agitated behavior. She is currently reading the Bible.. Speech: patient's speech is spontaneous, normal rate, tone, volume, and fluency. Mood/Affect: Mood is "feeling fine" Affect is bright and friendly today. Suicidality/Homicidality: Patient does not endorse any suicidal or homicidal ideation, intention, and/or plan. Perceptions: Patient denies any auditory or visual hallucinations. Though content/process: Patient does not overtly state any delusional thought content but can be observed on the unit reading the Bible out loud to herself. Memory and concentration: AOX3, grossly intact for the purposes of this session Judgment and insight: Poor insight and judgement. Vital Signs Temp 96.2 F L 06/07/21 00:17 Pulse 75 06/07/21 00:17 Resp 18 06/07/21 00:17 BP 170/95 06/07/21 00:17 Pulse Ox 94 L 05/19/21 00:39 Assessment Schizoaffective disorder, bipolar type Plan: -The patient has been court ordered as of 05/18/21. She is scheduled for guardianship hearing tomorrow. -Initial plan was to discharge. We will look at applying for guardianship for this patient. -This provider left a HIPAA compliant message on Daxa Hoyt MD 's voicemail. -Medications: Prolixin Decanoate 25 mg IM was administered on 05/30/2021. Next dose due on 06/20/2021. -When necessary Ativan and Haldol for agitation/aggression. -SW on board for discharge planning. Encouraged the patient to participate in milieu.
[2021-06-07] MEDS: LIDOCAINE 5% PATCH TOPICAL SCH ×2 (11:28→12:47)
[2021-06-08] MEDS: IBUPROFEN 400 MG TAB PO PRN ×3 (00:52→16:50)
[2021-06-08] MEDS: LIDOCAINE 5% PATCH TOPICAL SCH (09:01)
--- NOTE | 2021-06-08 11:42 | P.PN ---
Progress Note - Text Progress Note Date: 06/08/21 Interval History: Patient was seen in the [facility]. Currently, the patient is not reporting any suicidal or homicidal ideation, intention, and/or plan. She denies any auditory or visual hallucinations. She reports no paranoid delusions. She is eating and sleeping well. She reports no significant side effects of her medications. The patient continues to refuse to acknowledge that she has mental homeless, requires a court order, or is even under a mental health court order. Mental Status Exam: General Appearance: Patient appears to be stated age is alert, is directable and cooperative today. Good hygiene and grooming. Behavior: Patient is seated calmly without any agitated behavior. She is currently reading the Bible and at times out loud to herself. Speech: patient's speech is spontaneous, normal rate, tone, volume, and fluency. Mood/Affect: Mood is "Doing alright Dr Parra." Affect is bright and friendly. Suicidality/Homicidality: Patient does not endorse any suicidal or homicidal ideation, intention, and/or plan. Perceptions: Patient denies any auditory or visual hallucinations. Though content/process: Patient does not overtly state any delusional thought content but can be observed on the unit reading the Bible out loud to herself. Memory and concentration: AOX3, grossly intact for the purposes of this session Judgment and insight: Poor insight and judgement. Vital Signs Temp 97.6 F 06/08/21 06:34 Pulse 63 06/08/21 06:34 Resp 16 06/08/21 06:34 BP 136/66 06/08/21 06:34 Pulse Ox 94 L 05/19/21 00:39 Assessment Schizoaffective disorder, bipolar type Plan: -The patient has been court ordered as of 05/18/21 for mental health treatment. She is now assigned a public guardian as of 06/08/2021. Currently we are looking for appropriate placement. -This provider left a HIPAA compliant message on Daxa Hoyt MD 's voicemail. -Medications: Prolixin Decanoate 25 mg IM was administered on 05/30/2021. Next dose due on 06/20/2021. -When necessary Ativan and Haldol for agitation/aggression. -SW on board for discharge planning. Encouraged the patient to participate in [facility].
[2021-06-09] MEDS: IBUPROFEN 400 MG TAB PO PRN ×2 (07:29→16:33)
[2021-06-09] MEDS: LIDOCAINE 5% PATCH TOPICAL SCH (09:23)
--- NOTE | 2021-06-09 11:47 | P.PN ---
Progress Note - Text Progress Note Date: 06/09/21 Interval History: Patient was seen in the milieu. She is agreeable to speak with this designer/writer. She continues to not endorse any significant thing of note aside from her usual joint pain that she has been experiencing. She reports no suicidal or homicidal ideation, intention, and/or plan. She reports no auditory or visual hallucinations. She reports no paranoia or other delusions but continues to refute the idea that she has any mental health problem. She continues to be focused on muslim but is less forthcoming than before. Unless explicitly asked about why she left [place], the patient does not end up elevated or begin her pressured rant that "muslims are taking over." When bringing up her court order and the need for psychiatric follow-up, the patient continues to deny that she needs any treatment and that "older Buddhist Americans are being locked up and experimented on." She now has a guardian. Mental Status Exam: General Appearance: Patient appears to be stated age is alert, is directable and cooperative today. Good hygiene and grooming. Behavior: Patient is seated calmly without any agitated behavior. Psychomotor activity is normal. Speech: patient's speech is spontaneous, normal rate, tone, volume, and fluency. Mood/Affect: Mood is "I'm fine and Ralph loves you." Affect is bright and friendly. Suicidality/Homicidality: Patient does not endorse any suicidal or homicidal ideation, intention, and/or plan. Perceptions: Patient denies any auditory or visual hallucinations. Though content/process: Patient does not overtly state any delusional thought content but can be observed on the unit reading the Bible out loud to herself. Memory and concentration: AOX3, grossly intact for the purposes of this session Judgment and insight: Poor insight and judgement. Vital Signs Temp 97.6 F 06/08/21 06:34 Pulse 63 06/08/21 06:34 Resp 16 06/08/21 06:34 BP 136/66 06/08/21 06:34 Pulse Ox 94 L 05/19/21 00:39 Assessment Schizoaffective disorder, bipolar type Plan: -The patient has been court ordered as of 05/18/21 for mental health treatment. She is now assigned a public guardian as of 06/08/2021. Currently we are looking for appropriate placement. -This provider left a HIPAA compliant message on Daxa Hoyt MD 's voicemail. No message from her yet. -Medications: Prolixin Decanoate 25 mg IM was administered on 05/30/2021. Next dose due on 06/20/2021. -When necessary Ativan and Haldol for agitation/aggression. -SW on board for discharge planning. Encouraged the patient to participate in milieu.
[2021-06-10] MEDS: IBUPROFEN 400 MG TAB PO PRN ×3 (00:03→16:23)
[2021-06-10] MEDS: LIDOCAINE 5% PATCH TOPICAL SCH ×2 (08:14→15:33)
--- NOTE | 2021-06-10 12:09 | P.PN ---
Progress Note - Text Progress Note Date: 06/10/21 Interval History: Patient was seen in the milieu. The patient was seen speaking to herself and praying. She currently denies any suicidal or homicidal ideation, intention, and/or plan. She denies any auditory or visual hallucinations. She reports no paranoia or other delusions. She denies any issues regarding her sleep or appetite. It should be noted that the patient has been noted by staff that she expressed some racial prejudices against another patient. Furthermore, patient has been noted by staff to also be increasingly zoroastrianism or the past 3 days as compared to a week prior. She has been noted to be speaking to herself on the unit more so. She continues to report joint pain. Mental Status Exam: General Appearance: Patient appears to be stated age is alert, is directable and cooperative today. Good hygiene and grooming. Behavior: Patient is seated calmly without any agitated behavior. Psychomotor activity is normal. Speech: patient's speech is spontaneous, normal rate, tone, volume, and fluency. Mood/Affect: Mood is "I'm okay Dr. Parra." Affect is euthymic and friendly. Suicidality/Homicidality: Patient does not endorse any suicidal or homicidal ideation, intention, and/or plan. Perceptions: Patient denies any auditory or visual hallucinations. Though content/process: Patient does not overtly state any delusional thought content but can be observed on the unit reading the Bible out loud to herself and is doing so more in the past few days. Memory and concentration: AOX3, grossly intact for the purposes of this session Judgment and insight: Poor insight and judgement. Vital Signs Temp 97.6 F 06/08/21 06:34 Pulse 63 06/08/21 06:34 Resp 16 06/08/21 06:34 BP 136/66 06/08/21 06:34 Pulse Ox 94 L 05/19/21 00:39 Assessment Schizoaffective disorder, bipolar type Plan: -The patient has been court ordered as of 05/18/21 for mental health treatment. She is now assigned a public guardian as of 06/08/2021. Currently we are looking for appropriate placement. -This provider left a HIPAA compliant message on Daxa Hoyt MD 's voicemail. No message from her yet. -Ordered UA, CBC, and BMP for screening labs. -Medications: Prolixin Decanoate 25 mg IM was administered on 05/30/2021. Next dose due on 06/20/2021. Start Prolixin 2 mg daily for psychosis and mood stabilization. She is under court order so administer prolixn 2.5 mg IM if she refuses. -When necessary Ativan and Haldol for agitation/aggression. -SW on board for discharge planning. Encouraged the patient to participate in milieu.
[2021-06-10 15:40] LABS: HCT 45.6 % (34.0-46.0); HGB 14.9 gm/dL (11.4-16.0); MCHC 32.7 g/dL (31.0-37.0); MCV 91.8 fL (80.0-100.0); Mean Platelet Volume 6.2; Platelet Count 293 k/uL (150-450); RBC 4.96 m/uL (3.80-5.40); RDW 12.8 % (11.5-15.5); WBC 9.8 k/uL (3.8-10.6)
[2021-06-10 16:01] LABS: African American GFR (CKD) >90 (>60 ml/min/1.73 sqM); Anion Gap 7 mmol/L; Blood Urea Nitrogen 15 mg/dL (7-17); Calcium 9.9 mg/dL (8.4-10.2); Carbon Dioxide 30 mmol/L (22-30); Chloride 99 mmol/L (98-107); Glucose 88 mg/dL (74-99); Non-African American GFR(CKD) >90 (>60 ml/min/1.73 sqM); Potassium 4.4 mmol/L (3.5-5.1); Sodium 136 mmol/L (137-145)
[2021-06-11] MEDS: IBUPROFEN 400 MG TAB PO PRN ×2 (08:35→17:05)
[2021-06-11] MEDS: LIDOCAINE 5% PATCH TOPICAL SCH ×2 (08:39→18:59)
--- NOTE | 2021-06-11 14:17 | P.PN ---
Progress Note - Text Progress Note Date: 06/11/21 Interval History: Patient was seen wandering the hallways and was directable and agreeable to shannon pisano with telegraphic typewriter installer in the office. Currently the patient is being treated for schizoaffective disorder bipolar type. Patient states that she came into the hospital because of her arthritis. She states she does not need any medication besides taking Motrin. Apparently the patient has poor insight into her mental issues. The patient is being observed talking to self while no one is around. She has her personal belonging in paper bag. Patient is hyperreligious. At this time patient denies any suicidal or homical ideations, intent or plan. Patient denies any auditory, visual hallucinations and denies any paranoia or delusions. Patient denies any side effects from the medications and has been compliant with meds. Mental Status Exam: General Appearance: Has poor hydrogen. Difficult to engage Behavior: Has the tendency to get irritated easily Speech: Patient's speech is fluent and nonpressured. Mood/Affect: Tense with a tendency to get irritable Suicidality/Homicidality: Patient denies having any suicidal or homicidal ideation intent or plan. Perceptions: Patient denies any visual hallucinations and denies any auditory hallucinations . Although she is being observed talking to self when no one is Though content/process: Tangential Memory and concentration: AOX3, grossly intact for the purposes of this session Judgment and insight: Limited Assessment Schizoaffective disorder bipolar type Plan: -Patient continues to meet criteria for inpatient psychiatric admission for symptom stabilization and safety. Patient has not signed adult voluntary form and medication consent and was placed in patient's chart. -Medications: Continue Prolixin mg po. Patient received Prolixin Decanoate 25 mg IM on like 11/07/2021 Dose is due on 06/20/2021 -When necessary Ativan and Haldol for agitation/aggression. -SW on board for discharge planning. Encouraged the patient to participate in milieu. Currently awaiting deferral with commercial litigation attorney and court date.
[2021-06-12] MEDS: IBUPROFEN 400 MG TAB PO PRN ×2 (08:14→17:24)
[2021-06-12] MEDS: LIDOCAINE 5% PATCH TOPICAL SCH ×2 (08:16→17:25)
--- NOTE | 2021-06-12 13:42 | P.PN ---
Progress Note - Text Progress Note Date: 06/12/21 Interval History: Patient was seen wandering the hallways and was directable and agreeable to s [place] with communications writer in the office. Currently the patient is being treated for schizoaffective disorder bipolar type. Patient states that she came into the hospital because of her arthritis. She states he carries all of her belongings in a paper bag because it's better. She states that she also puts her Bible in it. Apparently the patient has poor insight into her mental issues evident by her belief that she does not to be on any medications. The patient is being observed talking to self while no one is around. The patient is religiously preoccupied. At this time patient denies any suicidal or homical ideations, intent or plan. Patient denies any auditory, visual hallucinations and denies any paranoia or delusions. Patient denies any side effects from the medications and has been compliant with meds. Mental Status Exam: General Appearance: Has poor hydrogen. Difficult to engage Behavior: Has the tendency to get irritated easily Speech: Patient's speech is fluent and nonpressured. Mood/Affect: Tense with a tendency to get irritable Suicidality/Homicidality: Patient denies having any suicidal or homicidal ideation intent or plan. Perceptions: Patient denies any visual hallucinations and denies any auditory hallucinations . Although she is being observed talking to self when no one is Though content/process: Loose association. The patient is religiously preoccupied Memory and concentration: AOX3, grossly intact for the purposes of this session Judgment and insight: Limited Assessment Schizoaffective disorder bipolar type Plan: -Patient continues to meet criteria for inpatient psychiatric admission for symptom stabilization and safety. Patient has not signed adult voluntary form and medication consent and was placed in patient's chart. -Medications: Continue Prolixin 2 mg po daily. Patient received Prolixin Decanoate 25 mg IM on like 11/07/2021 Dose is due on 06/20/2021. Patient might benefit from a higher dose of Prolixin Decanoate. -When necessary Ativan and Haldol for agitation/aggression. -SW on board for discharge planning. Encouraged the patient to participate in milieu. Currently awaiting deferral with educational sign language interpreter and court date.
[2021-06-13] MEDS: IBUPROFEN 400 MG TAB PO PRN ×2 (01:46→12:29)
[2021-06-13] MEDS: LIDOCAINE 5% PATCH TOPICAL SCH (09:34)
[2021-06-13] MEDS ORDERED: flUPHENAZine 2.5 MG/ML (MDV) 10 ML VIAL IM PRN (11:16)
--- NOTE | 2021-06-13 13:10 | P.PN ---
Progress Note - Text Progress Note Date: 06/13/21 Interval History: Patient was seen in the office. Patient is agitated today and quite pressured. She remains religiously preoccupied and appears to be increasingly paranoid today. She states that an individual with the last name "Anel" has been the reason for her wrongful admission. She maintains that the psychiatric system's goal is to kill off elderly [employer] individuals and replace them with a [employer] government. She is difficult to redirect. She states she will refuse medications because she is not mentally ill. Mental Status Exam: General Appearance: Patient appears to be stated age is alert, but uncooperative and difficult to direct. Behavior: Patient is verbally agitated. Psychomotor activity is elevated. Speech: patient's speech is pressured. Loud in volume. Mood/Affect: Mood is "This is wrong!" Affect is angry. Suicidality/Homicidality: Patient does not endorse any suicidal or homicidal ideation, intention, and/or plan. Perceptions: Patient denies any auditory or visual hallucinations. Though content/process: Delusional and paranoid. Religiously preoccupied. Memory and concentration: AOX3, grossly intact for the purposes of this session Judgment and insight: Poor insight and judgement. Vital Signs Temp 97.2 F L 06/13/21 01:50 Pulse 71 06/13/21 01:50 Resp 16 06/13/21 01:50 BP 140/67 06/13/21 01:50 Pulse Ox 94 L 05/19/21 00:39 Intake & Output 06/12/21 06/13/21 06/13/21 18:59 06:59 18:59 Weight 63.7 kg Assessment Schizoaffective disorder, bipolar type Plan: -Patient meets criteria for inpatient psychiatric admission. It appears her psychosis is worsening as Prolixin Decanoate is not holding her symptoms at this time and for the past few days. -The patient has been court ordered as of 05/18/21 for mental health treatment. She is now assigned a public guardian as of 06/08/2021. Currently we are looking for appropriate placement. -Medications: Prolixin Decanoate 25 mg IM was administered on 05/30/2021. Next dose due on 06/20/2021. Increase Prolixin to 5 mg daily for psychosis and mood stabilization. She is under court order so administer prolixn 2.5 mg IM if she refuses. -When necessary Ativan and Haldol for agitation/aggression. -SW on board for discharge planning. Encouraged the patient to participate in milieu.
[2021-06-14] MEDS: LIDOCAINE 5% PATCH TOPICAL SCH (09:26)
--- NOTE | 2021-06-14 11:51 | P.PN ---
Progress Note - Text Progress Note Date: 06/14/21 Interval History: Patient was seen resting in bed. Patient is seen sleeping without any acute d istress. When approached the patient is upset about having to take medications against her will. She continues to be religiously preoccupied and upset. She denies SI or HI. She reports no AH or VH. She expresses joint pain as a side effect of the prolixin. She has been noted to have more daytime sleepiness since being back on the prolixin this morning. Mental Status Exam: General Appearance: Patient appears to be stated age is alert, cooperative and polite. Behavior: Patient is resting in bed comfortably Speech: patient's speech is spontaneous, with mildly elevated volume. More interruptible. Mood/Affect: Mood is upset. Affect is irritable. Suicidality/Homicidality: Patient does not endorse any suicidal or homicidal ideation, intention, and/or plan. Perceptions: Patient denies any auditory or visual hallucinations. Though content/process: Delusional and paranoid. Religiously preoccupied. Memory and concentration: AOX3, grossly intact for the purposes of this session Judgment and insight: Poor insight and judgement. Vital Signs Temp 97.2 F L 06/13/21 01:50 Pulse 71 06/13/21 01:50 Resp 16 06/13/21 01:50 BP 140/67 06/13/21 01:50 Pulse Ox 94 L 05/19/21 00:39 Intake & Output 06/13/21 06/14/21 06/14/21 18:59 06:59 18:59 Weight 63.7 kg Assessment Schizoaffective disorder, bipolar type Plan: -Patient meets criteria for inpatient psychiatric admission. It appears her psychosis is worsening as Prolixin Decanoate is not holding her symptoms at this time and for the past few days. -The patient has been court ordered as of 05/18/21 for mental health treatment. She is now assigned a public guardian as of 06/08/2021. Currently we are looking for appropriate placement. -Medications: Prolixin Decanoate 25 mg IM was administered on 05/30/2021. Next dose due on 06/20/2021. Increase Prolixin to 5 mg twice daily for psychosis and mood stabilization. She is under court order so administer prolixn 2.5 mg IM if she refuses. -When necessary Ativan and Haldol for agitation/aggression. -SW on board for discharge planning. Encouraged the patient to participate in milieu.
[2021-06-14] MEDS: IBUPROFEN 400 MG TAB PO PRN ×2 (12:19→19:45)
[2021-06-15] MEDS: IBUPROFEN 400 MG TAB PO PRN ×2 (10:04→17:50)
--- NOTE | 2021-06-15 11:36 | P.PN ---
Progress Note - Text Progress Note Date: 06/15/21 Interval History: Patient was seen attending group playing with [employer]. She refused to leave group and wished to have her interview in front of other patients despite this provider requesting to protect her privacy. The patient reports she is upset that she is being forced to take medications. She states she is experiencing side effects. She states she feels "malaised." She then refuses further questioning or elaboration. Mental Status Exam: General Appearance: Patient appears to be stated age is alert, uncooperative, and difficult do direct Behavior: Patient is playing [employer]gr[employer] and refuses to leave group. Poor eye contact. Speech: Patient's speech is spontaneous, loud in volume. Mood/Affect: Mood is upset. Affect is angry. Suicidality/Homicidality: Unable to assess. Perceptions: Unable to assess. Though content/process: Unable to assess. Memory and concentration: Grossly intact for the purposes of this session. Judgment and insight: Poor insight and judgement. Vital Signs Temp 97.3 F L 06/15/21 06:18 Pulse 57 L 06/15/21 06:18 Resp 16 06/15/21 06:18 BP 159/68 06/15/21 06:18 Pulse Ox 94 L 05/19/21 00:39 Assessment Schizoaffective disorder, bipolar type -As she was placed back on oral prolixin, she does appear to be less religiously preoccupied and is participating in milieu activities compared to before where she would be reading the bible or praying aloud to herself in the hallway away from the general milieu. Plan: -Patient meets criteria for inpatient psychiatric admission. It appears her psychosis is worsening as Prolixin Decanoate is not holding her symptoms at this time and for the past few days. -The patient has been court ordered as of 05/18/21 for mental health treatment. She is now assigned a public guardian as of 06/08/2021. Currently we are looking for appropriate placement. -Medications: Prolixin Decanoate 25 mg IM was administered on 05/30/2021. Next dose due on 06/20/2021. Consider administration of 37.5 mg of Prolixin IM on 06/20/2021. Continue Prolixin 5 mg twice daily for psychosis and mood stabilization. - Consider increasing dose in response to patient tolerance and target symptoms. She is under court order so administer prolixn 2.5 mg IM if she refuses. -When necessary Ativan and Haldol for agitation/aggression. -SW on board for discharge planning. Encouraged the patient to participate in milieu.
[2021-06-15] MEDS: LIDOCAINE 5% PATCH TOPICAL SCH ×2 (15:49→17:51)
[2021-06-16] MEDS: IBUPROFEN 400 MG TAB PO PRN ×3 (01:03→17:27)
--- NOTE | 2021-06-16 13:44 | P.PN ---
Progress Note - Text Progress Note Date: 06/16/21 Clinical Problems: Bipolar disorder, type I versus schizoaffective disorder, bipolar type Interim history: I reviewed the medical record, interviewed the patient and discussed her treatment and treatment plan during team meeting. This has been in extended hospitalization were today or 43 day on the unit. She was initially pleasant on approach but became increasingly angry as the interview progressed. She appeared offended when I described this hospitalization as a "long stay." She denied that she's been here long time and was only hospitalized in April. She continues to deny the need for hospitalization and is only waiting for her release so that she could crossover to [place] to visit with some family. She would not talk about her family. She would not provide me their names and would not give consent for us to contact her family in [place]. According to social service technician she now has a public guardian who was involved and coordinated is her aftercare including mental health treatment and housing. She is prescribed Prolixin 5 mg twice a day and has been mostly compliant. She received an injection of Haldol Decanoate on 05/30/2021 She intermittently attends therapeutic groups and activities. Her therapist described her as disheveled, withdrawn and having impairments in attention and focus. She has had no recent episodes of behavioral dyscontrol. Mental status exam: She presented as disheveled appearing elderly woman who made little eye contact and minimally cooperative with the interview. She had a flat facial expression. She was alert and oriented to person, place and time. She had psychomotor retardation but no abnormal involuntary movements. Her speech was spontaneous with decreased rate and rhythm. Her affect was labile and she intermittently became angry. She did not express suicidal ideation, wishes or homicidal ideation. She expressed feelings of hopelessness related to this hospitalization but denied hopelessness or worthlessness. She continues to ruminate about going to [place]. She did not express clear ideas reference. Although she appears guarded, suspicious and paranoid she did not express paranoid ideation or delusions. Her thinking was very concrete and associations were stilted. She did not appear to be responding to internal stimuli. Assessment: She is seriously mentally ill and moderately improve from admission. She has no insight or understanding of illness or need for treatment. Plan: Continue inpatient treatment. Safety precautions. Continue Prolixin 5 mg twice a day and titrated according to response and tolerance. Her next Prolixin Decanoate injection is scheduled for 06/20/2021. Haldol and/or Ativan for anxiety, agitation acute psychosis. Continue participation in therapeutic groups and activities. Evaluate clinical status response to treatment daily basis.
[2021-06-16] MEDS: LIDOCAINE 5% PATCH TOPICAL SCH ×2 (15:38→15:39)
[2021-06-17] MEDS ORDERED: flUPHENAZine 2.5 MG/ML (MDV) 10 ML VIAL IM PRN (08:30)
[2021-06-17] MEDS: IBUPROFEN 400 MG TAB PO PRN ×2 (12:50→19:38)
--- NOTE | 2021-06-17 14:36 | P.PN ---
Progress Note - Text Progress Note Date: 06/17/21 Clinical Problems: Bipolar disorder, type I with psychotic features versus schizoaffective disorder, bipolar type Interim history: I reviewed the medical record, interviewed the patient and discussed her treatment and treatment plan during team meeting. This has been in extended hospitalization were today or 42 day on the unit. She complained of feeling bad that she attributed to taking Prolixin. When I asked her whether she has had problems in the past with Prolixin she denied that she had been prescribed or taking the medication before. Her complaints include joint pain, weakness, fatigue and lightheadedness. She denied feeling restless or tremulous. She again explained that her plan is to visit family in [place] when she is discharged. He is more cooperative than yesterday and talked about having second and third cousins living in [place]." She apparently does not know their addresses but alleges that she can "find their house" because "they have lived there for several years. We discussed just her discharge plan during team meeting. We will most likely discharge her motel with follow-up through community mental health. We anticipate that she was leave the country as soon as she is able. She intermittently attends therapeutic groups and activities. She has had no recent episodes of behavioral dyscontrol. Mental status exam: She presented as disheveled appearing elderly woman who made little eye contact but cooperated with the interview. She had a flat facial expression. She was alert and oriented to person, place and time. She had psychomotor retardation but no abnormal involuntary movements. Her speech was spontaneous with decreased rate and rhythm. Her affect was irritable but controlled. She did not express suicidal ideation, wishes or homicidal ideation. She denied feeling hopelessness, helplessness or worthlessness. She continues to ruminate about going to [place]. She did not express clear ideas reference. Although she appears guarded, suspicious and paranoid she did not express paranoid ideation or delusions. Her thinking was very concrete and associations were stilted. She did not appear to be responding to internal stimuli. Assessment: She is seriously mentally ill and much improve from admission. She has no insight or understanding of illness or need for treatment. Plan: Continue inpatient treatment. Safety precautions. Continue Prolixin 5 mg twice a day and titrated according to response and tolerance. Her next Prolixin Decanoate injection is scheduled for 06/20/2021. Haldol and/or Ativan for anxiety, agitation acute psychosis. Continue participation in therapeutic groups and activities. Evaluate clinical status response to treatment daily basis.
[2021-06-17] MEDS: LIDOCAINE 5% PATCH TOPICAL SCH (14:48)
[2021-06-17 21:29] LABS: Appearance,Urine Clear (Clear); Bilirubin,Urine Negative (Negative); Blood,Urine Negative (Negative); Color,Urine Colorless; Glucose,Urine (UA) Negative (Negative); Ketones,Urine Negative (Negative); Leukocyte Esterase,Urine Moderate (Negative); Nitrite,Urine Negative (Negative); PH, Urine 6.5 (5.0-8.0); Protein,Urine Negative (Negative); RBC,Urine <1 /hpf (0-5); Specific Gravity,Urine 1.004 (1.001-1.035); Squamous Epithelial Cell,Urine <1 /hpf (0-4); Urobilinogen,Urine <2.0 mg/dL (<2.0); WBC,Urine 4 /hpf (0-5)
[2021-06-18] MEDS: IBUPROFEN 400 MG TAB PO PRN ×2 (10:17→18:33)
[2021-06-18] MEDS: LIDOCAINE 5% PATCH TOPICAL SCH (10:18)
--- NOTE | 2021-06-18 11:16 | P.PN ---
Progress Note - Text Progress Note Date: 06/18/21 Interval History: Patient was seen the TV room because she refused to come to the office. The p rafi is being treated for schizoaffective disorder bipolar type. Patient states "Prolixin making me feel lousy" then says "I only need ibuprofen for my arthritis court. It should be noted the patient appears calmer compared to the last weekend. Her thought process is not as focused on [employer]. She continues to have limited insight into her issues. At this time patient denies any suicidal or homical ideations, intent or plan. Patient denies any auditory, visual hallucinations and denies any paranoia or delusions. Patient denies any side effects from the medications and has been compliant with meds. Mental Status Exam: General Appearance: Patient appears to be stated age is alert, directable, and partially cooperative. Behavior: [Patient is calmly seated other easily gets frustrated Speech: Patient's speech is fluent and nonpressured. Mood/Affect: Mood is irritable however controlled Suicidality/Homicidality: Patient denies having any suicidal or homicidal ideation intent or plan. Perceptions: Patient denies any visual hallucinations and denies any auditory hallucinations Though content/process: Appears suspicious no evidence of delusions. Thought process is concrete Memory and concentration: AOX3, grossly intact for the purposes of this session Judgment and insight: Poor Assessment Schizoaffective disorder bipolar type Plan: -Patient continues to meet criteria for inpatient psychiatric admission for symptom stabilization and safety. -Medications: Continue Prolixin 5 mg twice daily. Patient received Prolixin Decanoate 25 mg on 05/30/2021. Please consider to titrate the dose to 37.5 on her next scheduled dose on 06/20/2021 -When necessary Ativan and Haldol for agitation/aggression. -NRT - nicotine patch -SW on board for discharge planning. Encouraged the patient to participate in milieu.
[2021-06-19] MEDS: LIDOCAINE 5% PATCH TOPICAL SCH (08:21)
[2021-06-19] MEDS: IBUPROFEN 400 MG TAB PO PRN ×2 (08:22→21:58)
--- NOTE | 2021-06-19 14:37 | P.PN ---
Progress Note - Text Progress Note Date: 06/19/21 Interval History: Patient was seen for follow-up examination. [Patient is being treated for jacinto izoaffective disorder bipolar type. She is being observed reading the Bible out loud. The patient appears to be redirectable . She continues to demonstrate having limited insight into her mental issues. She continues to report that Prolixin making her feel terrible. No evidence of muscle stiffness or any signs or symptoms of EPS that being observed or reported. At this time patient denies any suicidal or homical ideations, intent or plan. Patient denies any auditory, visual hallucinations and denies any paranoia or delusions. Patient denies any side effects from the medications and has been compliant with meds. Mental Status Exam: General Appearance: Patient appears to be stated age is alert, directable, and partially cooperative. Behavior: [Patient is calmly seated other easily gets frustrated Speech: Patient's speech is fluent and nonpressured. Mood/Affect: Mood is irritable however controlled Suicidality/Homicidality: Patient denies having any suicidal or homicidal ideation intent or plan. Perceptions: Patient denies any visual hallucinations and denies any auditory hallucinations Though content/process: Appears suspicious no evidence of delusions. Thought process is concrete Memory and concentration: AOX3, grossly intact for the purposes of this session Judgment and insight: Poor Assessment Schizoaffective disorder bipolar type Plan: -Patient continues to meet criteria for inpatient psychiatric admission for symptom stabilization and safety. -Medications: Continue Prolixin 5 mg twice daily. Patient received Prolixin Decanoate 25 mg on 05/30/2021. Please consider to titrate the dose to 37.5 on her next scheduled dose on 06/20/2021 -When necessary Ativan and Haldol for agitation/aggression. -NRT - nicotine patch -SW on board for discharge planning. Encouraged the patient to participate in milieu.
[2021-06-20] MEDS: IBUPROFEN 400 MG TAB PO PRN ×2 (08:15→20:42)
[2021-06-20] MEDS ORDERED: fluPHENAZine DECANOATE 25 MG/ML 5ML MDV IM ONE (10:53)
--- NOTE | 2021-06-20 11:57 | P.PN ---
Progress Note - Text Progress Note Date: 06/20/21 Interval History: Patient was seen resting in bed comfortably and was directable and agreeable to speak with the rewriter in her room. Patient was initially calm and cooperative but was informed that she would be receiving her next dose of Prolixin Decanoate today. Once informed of this, the patient expresses much more latter day preoccupation stating "Lord protect me from these devils." She also expresses that 10 injections are coming toward this provider. She otherwise appears to have been tolerating the oral prolixin well despite her complaints of increased joint pain. She displayed no significant EPS or neuromuscular issues. The patient terminated the interview. Mental Status Exam: General Appearance: Patient appears to be stated age is alert, not directable and not cooperative. Behavior: Patient is lying in bed. No acute distress. No abnormal movements or muscle tightness noted. Speech: Patient's speech is fluent but pressured, loud, and repetitive. Mood/Affect: Mood is irritable, affect is angry and congruent. Suicidality/Homicidality: Unable to assess. Perceptions: Unable to assess. Though content/process: Signifciant latter day preoccupation. Memory and concentration: Grossly intact for the purposes of this session Judgment and insight: Very poor. Vital Signs Temp 97.4 F L 06/20/21 06:44 Pulse 62 06/20/21 06:44 Resp 16 06/20/21 06:44 BP 123/73 06/20/21 06:44 Pulse Ox 94 L 05/19/21 00:39 Assessment Schizoaffective disorder, bipolar type Plan: -Patient continues to meet criteria for inpatient psychiatric admission for symptom stabilization and safety. Patient is under court order. She has a guardian assigned as well. -Medications: We will discontinue oral prolixin and administer Prolixin-Decanoate 37.5 mg IM today. -When necessary Ativan and Haldol for agitation/aggression. -SW on board for discharge planning. Encouraged the patient to participate in milieu.
[2021-06-20] MEDS: LIDOCAINE 5% PATCH TOPICAL SCH (12:14)
[2021-06-21] MEDS: LIDOCAINE 5% PATCH TOPICAL SCH (07:54)
[2021-06-21] MEDS: IBUPROFEN 400 MG TAB PO PRN ×3 (07:55→23:34)
--- NOTE | 2021-06-21 10:16 | P.PN ---
Progress Note - Text Progress Note Date: 06/21/21 Interval History: Patient was seen resting in bed comfortably and was directable and agreeable to speak with the web content writer in her room. The patient is currently denying any suicidal or homicidal ideation, intention, and/or plan. She is not reporting any auditory or visual hallucinations. She is denying any paranoia or delusions at this time. The patient did receive her Prolixin Decanoate yesterday and is not endorsing any significant problems aside from her normal complaint joint pain. She is denying any chest pain or shortness of breath. She is denying any muscle tightness, restlessness, or any abnormal movements. The patient was informed that she is to receive his injection every 3-4 weeks, to which she replies "then God will make sure that you will get 1000 of them back." Mental Status Exam: General Appearance: Patient appears to be stated age is alert, directable and cooperative. Behavior: Patient is lying in bed. No acute distress. Eye contact is intermittent. Approach is obstinate. Speech: Patient's speech is fluent, but non pressured, with normal rate and volume. Mood/Affect: Mood is "upset." Affect is irritable but with appropriate range. Suicidality/Homicidality: Patient denies any suicidal or homicidal ideation, intention, and/or plan. Perceptions: No perceptual abnormalities are endorsed. Though content/process: Continued tenriism preoccupation otherwise no other delusional thought content or abnormal thought process noted Memory and concentration: Grossly intact for the purposes of this session Judgment and insight: Very poor. Vital Signs Temp 96.9 F L 06/21/21 07:00 Pulse 60 06/21/21 07:00 Resp 18 06/21/21 07:00 BP 126/56 06/21/21 07:00 Pulse Ox 94 L 05/19/21 00:39 Assessment Schizoaffective disorder, bipolar type Plan: -Patient continues to meet criteria for inpatient psychiatric admission for symptom stabilization and safety. Patient is under court order and has a guardian. -Medications: Prolixin-Decanoate 37.5 mg IM administered on 06/20/2021. -When necessary Ativan and Haldol for agitation/aggression. -SW on board for discharge planning. Encouraged the patient to participate in milieu.
[2021-06-22] MEDS: IBUPROFEN 400 MG TAB PO PRN ×2 (08:50→23:45)
--- NOTE | 2021-06-22 09:33 | P.PN ---
Progress Note - Text Progress Note Date: 06/22/21 Interval History: Patient was seen in the group lounge socializing with another peer. She did not wish to leave the group lounge and preferred to speak with the health underwriter with the peer present despite this provider asking her multiple times in order to protect her privacy. The patient reports no suicidal or homicidal ideation, intention, and/or plan today. She reports no auditory or visual hallucinations. She denies any paranoia or other delusions. She appears to be less preoccupied and is not seen in the milieu walking around with her bible or praying and reading to herself. She denies any issues regarding her sleep or appetite. She does continue to endorse joint pain (hip, hands, and back). She denies any side effects of the prolixin decanoate injection. Mental Status Exam: General Appearance: Patient appears to be stated age is alert, directable and cooperative. Behavior: Patient is lying in bed. No acute distress. Eye contact is good. Approach is cooperative and polite. Speech: Patient's speech is fluent, but non pressured, with normal rate and volume. Mood/Affect: Mood is "I'm doing okay." Affect is pleasant and euthymic. Suicidality/Homicidality: Patient denies any suicidal or homicidal ideation, intention, and/or plan. Perceptions: No perceptual abnormalities are endorsed. Though content/process: No delusional thought content is endorsed today. Makes no mention of her worship ideals. Memory and concentration: Grossly intact for the purposes of this session Judgment and insight: Mildly improving. Vital Signs Temp 96.9 F L 06/21/21 07:00 Pulse 60 06/21/21 07:00 Resp 18 06/21/21 07:00 BP 126/56 06/21/21 07:00 Pulse Ox 94 L 05/19/21 00:39 Assessment Schizoaffective disorder, bipolar type Plan: -Patient continues to meet criteria for inpatient psychiatric admission for symptom stabilization and safety. Patient is under court order and has a guardian. -Patient is displaying significant improvement today. Awaiting placement as per guardian and [facility] recommendations. -Medications: Prolixin-Decanoate 37.5 mg IM administered on 06/20/2021. -When necessary Ativan and Haldol for agitation/aggression. -SW on board for discharge planning. Encouraged the patient to participate in milieu.
[2021-06-22] MEDS: LIDOCAINE 5% PATCH TOPICAL SCH (12:42)
[2021-06-23] MEDS: IBUPROFEN 400 MG TAB PO PRN ×2 (10:16→18:22)
[2021-06-23] MEDS: LIDOCAINE 5% PATCH TOPICAL SCH (10:17)
--- NOTE | 2021-06-23 11:31 | P.PN ---
Progress Note - Text Progress Note Date: 06/23/21 Interval History: Patient was seen resting in bed comfortably in no acute distress. The patient reports that she is feeling "pretty good today." She is currently denying any suicidal or homicidal ideation, intention, and/or plan. She is denying any auditory or visual hallucinations. She is reporting no paranoia or other delusions. She denies any issues regarding her sleep or appetite. The patient states that she continues to experience some joint pain but is not endorsing any significant side effects of the Prolixin decanoate that she received a few days ago. She is reporting no issues regarding muscle tightness, chest pain, or restlessness. She denies any issues with constipation, diarrhea, or urinary retention. The patient also wishes this provider while today. The patient does not mention any significant catholic ideation today. Mental Status Exam: General Appearance: Patient appears to be stated age is alert, directable and cooperative. Behavior: Patient is lying in bed. No acute distress. Eye contact is good. Approach is cooperative and polite. Speech: Patient's speech is fluent, but non pressured, with normal rate and volume. Mood/Affect: Mood is "pretty good today." Affect is pleasant and euthymic. Suicidality/Homicidality: Patient denies any suicidal or homicidal ideation, intention, and/or plan. Perceptions: No perceptual abnormalities are endorsed. Though content/process: No delusional thought content is endorsed today. Makes no mention of her catholic ideals. Memory and concentration: Grossly intact for the purposes of this session Judgment and insight: Mildly improving. Vital Signs Temp 96.9 F L 06/21/21 07:00 Pulse 60 06/21/21 07:00 Resp 18 06/21/21 07:00 BP 126/56 06/21/21 07:00 Pulse Ox 94 L 05/19/21 00:39 Assessment Schizoaffective disorder, bipolar type Plan: -Patient continues to meet criteria for inpatient psychiatric admission for symptom stabilization and safety. Patient is under court order and has a guardian. -Patient is displaying significant improvement today. Currently pursuing [facility] ement for this patient. No crisis beds are available at this time. -Medications: Prolixin-Decanoate 37.5 mg IM administered on 06/20/2021. -When necessary Ativan and Haldol for agitation/aggression. -SW on board for discharge planning. Encouraged the patient to participate in milieu.
[2021-06-24] MEDS: IBUPROFEN 400 MG TAB PO PRN ×3 (00:53→16:37)
[2021-06-24] MEDS: LIDOCAINE 5% PATCH TOPICAL SCH ×2 (08:35→14:24)
--- NOTE | 2021-06-24 11:11 | P.PN ---
Progress Note - Text Progress Note Date: 06/24/21 Interval History: Patient was seen resting in bed comfortably in no acute distress. The patient reports that she is feeling "alright." The patient is currently not endorsing any suicidal or homicidal ideation, intention, and/or plan. She is not reporting any auditory or visual hallucinations. She denies any paranoia or other delusions. The patient is not religiously preoccupied at this time and is polite and cooperative with staff and peers. She is not reporting any significant side effects of the prolixin decanoate injection she received on 06/20/2021. We are currently awaiting recommendations or placement. Mental Status Exam: General Appearance: Patient appears to be stated age is alert, directable and cooperative. Behavior: Patient is lying in bed. No acute distress. Eye contact is good. Approach is cooperative and polite. Speech: Patient's speech is fluent, but non pressured, with normal rate and volume. Mood/Affect: Mood is "I'm doing good Dr Parra" Affect is pleasant and euthymic. Suicidality/Homicidality: Patient denies any suicidal or homicidal ideation, intention, and/or plan. Perceptions: No perceptual abnormalities are endorsed. Though content/process: No delusional thought content is endorsed today. No moravian preoccupation today. Memory and concentration: Grossly intact for the purposes of this session Judgment and insight: Fair. Vital Signs Temp 96.9 F L 06/21/21 07:00 Pulse 60 06/21/21 07:00 Resp 18 06/21/21 07:00 BP 126/56 06/21/21 07:00 Pulse Ox 94 L 05/19/21 00:39 Assessment Schizoaffective disorder, bipolar type Plan: -Patient continues to meet criteria for inpatient psychiatric admission for symptom stabilization and safety. Patient is under court order and has a guardian. -Patient is displaying significant improvement today. Currently pursuing placement for this patient. No crisis beds are available at this time. -Medications: Prolixin-Decanoate 37.5 mg IM administered on 06/20/2021. -When necessary Ativan and Haldol for agitation/aggression. -SW on board for discharge planning. Encouraged the patient to participate in milieu.
[2021-06-25] MEDS: IBUPROFEN 400 MG TAB PO PRN ×3 (00:44→17:29)
[2021-06-25] MEDS: LIDOCAINE 5% PATCH TOPICAL SCH ×2 (08:04→11:39)
--- NOTE | 2021-06-25 23:16 | P.PN ---
Progress Note - Text Progress Note Date: 06/25/21 Subjective: Patient was seen today as a cross coverage for Dr. Enciso. The patient was evaluated, chart reviewed, case discussed with the treatment team. Patient reports fair sleep last night, and appetite was reported as "fine ". Patient has been going to selected groups and other unit activities. The patient is compliant with her medications and denies any adverse reactions. She reports feeling her mood is" fine" and he denies depression, anxiety symptoms. Denies any hallucinations, paranoid ideation, or delusions. Patient was seen always carrying some of her clothes in a paper bag and he reports using it as a cushion sometimes and also it including her Bible. Patient is waiting for placement Objective: Vitals has been reviewed. Mental status examination; Appearance: The patient appears stated age, adequately groomed and dressed, no specific features. Gait/posture: Normal gait, Normal arm swinging: No abnormal movements. Attitude and behavior: engaged, cooperative, eye contact. Motor activity: Normal psychomotor activity Speech: Normal rate, tone. Mood: " Fine" Affect: Constricted Thought form: goal-directed, linear, coherent. Thought content: Non-delusional, denies suicidal thoughts, denies homicidal thoughts, denies intentions or plans. Perception: Denies any auditory or visual hallucinations Attention: No impairment. Orientation: Patient patient was fully oriented to time place person and situation. Insight: Patient has fair insight about her psychiatric disorder. Judgment: Patient has fair judgment about her psychiatric treatment. Assessment: Schizoaffective disorder, bipolar type Plan: Continue inpatient level of care due to need for further monitoring and discharge planning Precautions: Continue 15 minutes check for safety. Consider medical consultation if any acute medical issues arise. Provide the patient individual, group therapy, substance use disorder counseling to give better insight and learn coping skills. Medications: Prolixin dec. 37.5 mg IM last dose given 06/20/21 Continue as needed medications for psychiatric emergencies including psychosis, agitation and anxiety. Continue non-psychiatric medications for medical conditions as recommended by the medical team. Discharge patient to OUTPATIENT services upon a stabilization
[2021-06-26] MEDS: IBUPROFEN 400 MG TAB PO PRN ×4 (01:23→22:45)
[2021-06-26] MEDS: LIDOCAINE 5% PATCH TOPICAL SCH ×2 (08:40→11:29)
--- NOTE | 2021-06-26 23:35 | P.PN ---
Progress Note - Text Progress Note Date: 06/26/21 Subjective: Patient was seen today as a cross coverage for Dr. Enciso. The patient was evaluated, chart reviewed, case discussed with the treatment team. Patient continues to presented the same that she is carrying her paper bag all the time and uses it as a cushion as per her report. She denies feeling depressed, hopeless, or suicidal. Denies any manic or psychotic symptoms. Reports fair sleep, appetite, and she attends selected groups. Continue to take her psych medications and denies side effects. Objective: Vitals has been reviewed. Mental status examination; Appearance: The patient appears stated age, adequately groomed and dressed, no specific features. Gait/posture: Normal gait, Normal arm swinging: No abnormal movements. Attitude and behavior: engaged, cooperative, eye contact. Motor activity: Normal psychomotor activity Speech: Normal rate, tone. Mood: " Fine" Affect: Constricted Thought form: goal-directed, linear, coherent. Thought content: Non-delusional, denies suicidal thoughts, denies homicidal thoughts, denies intentions or plans. Perception: Denies any auditory or visual hallucinations Attention: No impairment. Orientation: Patient patient was fully oriented to time place person and situation. Insight: Patient has fair insight about her psychiatric disorder. Judgment: Patient has fair judgment about her psychiatric treatment. Assessment: Schizoaffective disorder, bipolar type Plan: Continue inpatient level of care due to need for further monitoring and discharge planning Precautions: Continue 15 minutes check for safety. Consider medical consultation if any acute medical issues arise. Provide the patient individual, group therapy, substance use disorder counseling to give better insight and learn coping skills. Medications: Prolixin dec. 37.5 mg IM last dose given 06/20/21 Continue as needed medications for psychiatric emergencies including psychosis, agitation and anxiety. Continue non-psychiatric medications for medical conditions as recommended by the medical team. Discharge patient to OUTPATIENT services upon a stabilization
[2021-06-27] MEDS: LIDOCAINE 5% PATCH TOPICAL SCH (11:16)
[2021-06-27] MEDS: IBUPROFEN 400 MG TAB PO PRN ×2 (11:17→18:34)
--- NOTE | 2021-06-27 15:23 | P.PN ---
Progress Note - Text Progress Note Date: 06/27/21 Interval History: Patient was seen resting in the [facility] and preferred to speak here despite patients being present. She reports she does not mind if people hear the interview. She refused to get up because she felt comfortable lying down on the couch because of her joint pain. The patient reports that she is feeling "pretty good." The patient is currently not endorsing any suicidal or homicidal ideation, intention, and/or plan. She is not reporting any auditory or visual hallucinations. She denies any paranoia or other delusions. The patient is not religiously preoccupied at this time and is polite and cooperative with staff and peers. She is not reporting any significant side effects of the prolixin decanoate injection she received on 06/20/2021. Mental Status Exam: General Appearance: Patient appears to be stated age is alert, directable and cooperative. Behavior: Patient is lying in bed. No acute distress. Eye contact is good. Approach is cooperative, friendly and polite. Speech: Patient's speech is fluent, but non pressured, with normal rate and volume. Mood/Affect: Mood is "Feeling alright" Affect is calm and pleasant. Suicidality/Homicidality: Patient denies any suicidal or homicidal ideation, intention, and/or plan. Perceptions: No perceptual abnormalities are endorsed. Though content/process: No delusional thought content is endorsed today. No mosque preoccupation today. Memory and concentration: Grossly intact for the purposes of this session Judgment and insight: Fair. Vital Signs Temp 97.4 F L 06/27/21 06:34 Pulse 55 L 06/27/21 06:34 Resp 16 06/27/21 06:34 BP 144/63 06/27/21 06:34 Pulse Ox 94 L 05/19/21 00:39 Intake & Output 06/26/21 06/27/21 06/27/21 18:59 06:59 18:59 Weight 69.1 kg Assessment Schizoaffective disorder, bipolar type Plan: -Patient continues to meet criteria for inpatient psychiatric admission for symptom stabilization and safety. Patient is under court order and has a guardian. -Patient is displaying significant improvement today. Currently pursuing placement for this patient. -Medications: Prolixin-Decanoate 37.5 mg IM administered on 06/20/2021. -When necessary Ativan and Haldol for agitation/aggression. -SW on board for discharge planning. Encouraged the patient to participate in milieu.
[2021-06-28] MEDS: IBUPROFEN 400 MG TAB PO PRN ×3 (07:51→23:12)
[2021-06-28] MEDS: LIDOCAINE 5% PATCH TOPICAL SCH ×2 (12:36→14:16)
--- NOTE | 2021-06-28 12:47 | P.PN ---
Progress Note - Text Progress Note Date: 06/28/21 Interval History: Patient was seen resting in bed comfortably. Currently, the patient not end orsing any suicidal or homicidal ideation, intention, and/or plan. Shopping auditory or visual hallucinations. She denied any paranoia or other delusions. The patient is not religiously preoccupied at this time. Patient does inquire whether the treatment team was able to reach her cousin who lives in [place]. She was informed that we have not yet received word despite leaving voice mail messages for this individual Daxa Mar. The patient is denying any issues regarding her sleep or appetite. She does report that she has joint pain which is alleviated by proposing. The patient is not reporting any side effects of her medications. She is not reporting any muscle tightness, chest pain, shortness of breath, or difficulty using the restroom. Mental Status Exam: General Appearance: Patient appears to be stated age is alert, directable and cooperative. Behavior: Patient is lying in bed. No acute distress. Eye contact is good. Approach is cooperative, friendly and polite. Speech: Patient's speech is fluent, but non pressured, with normal rate and volume. Mood/Affect: Mood is "Doing okay." Affect is calm and pleasant. Suicidality/Homicidality: Patient denies any suicidal or homicidal ideation, intention, and/or plan. Perceptions: No perceptual abnormalities are endorsed. Though content/process: No delusional thought content is endorsed today. No adventism preoccupation today. Memory and concentration: Grossly intact for the purposes of this session Judgment and insight: Fair. Vital Signs Temp 97.4 F L 06/27/21 06:34 Pulse 55 L 06/27/21 06:34 Resp 16 06/27/21 06:34 BP 144/63 06/27/21 06:34 Pulse Ox 94 L 05/19/21 00:39 Intake & Output 06/27/21 06/28/21 06/28/21 18:59 06:59 18:59 Weight 69.1 kg Assessment Schizoaffective disorder, bipolar type Plan: -Patient continues to meet criteria for inpatient psychiatric admission for symptom stabilization and safety. Patient is under court order and has a guardian. -Patient is displaying significant improvement today. Currently pursuing placement for this patient. -Medications: Prolixin-Decanoate 37.5 mg IM administered on 06/20/2021. -When necessary Ativan and Haldol for agitation/aggression. -SW on board for discharge planning. Encouraged the patient to participate in milieu.
[2021-06-29] MEDS: IBUPROFEN 400 MG TAB PO PRN ×2 (08:41→18:24)
[2021-06-29] MEDS: LIDOCAINE 5% PATCH TOPICAL SCH (08:42)
--- NOTE | 2021-06-29 10:11 | P.PN ---
Progress Note - Text Progress Note Date: 06/29/21 Interval History: Patient was seen resting in bed comfortably. Patient prefers to sleep with the light on in her room. She reports it does not bother her. She is currently not reporting any jew preoccupation or paranoia. She reports no fear of "muslims taking over [place] and doctors trying to kill older Jew Americans." She reports no suicidal or homicidal ideation, intention, and/or plan. She reports no auditory or visual hallucinations. She reports no issues regarding her sleep or appetite. She states she continues to experience joint pain but denies any muscle tightness, movement issues, or other side effects of her prolixin decanoate injection. Mental Status Exam: General Appearance: Patient appears to be stated age is alert, directable and cooperative. Behavior: Patient is lying in bed. No acute distress. Eye contact is good. Approach is cooperative, friendly and polite. Speech: Patient's speech is fluent, but non pressured, with normal rate and volume. Mood/Affect: Mood is "I'm feeling okay." Affect is calm and pleasant. Suicidality/Homicidality: Patient denies any suicidal or homicidal ideation, intention, and/or plan. Perceptions: No perceptual abnormalities are endorsed. Though content/process: No delusional thought content is endorsed today. No re ligious preoccupation today. Memory and concentration: Grossly intact for the purposes of this session Judgment and insight: Fair. Vital Signs Temp 97.4 F L 06/27/21 06:34 Pulse 55 L 06/27/21 06:34 Resp 16 06/27/21 06:34 BP 144/63 06/27/21 06:34 Pulse Ox 94 L 05/19/21 00:39 Assessment Schizoaffective disorder, bipolar type Plan: -Patient continues to meet criteria for inpatient psychiatric admission for symptom stabilization and safety. Patient is under court order and has a guardian. -Patient is displaying significant improvement today. [facility]. -Medications: Prolixin-Decanoate 37.5 mg IM administered on 06/20/2021. -When necessary Ativan and Haldol for agitation/aggression. -SW on board for discharge planning. Encouraged the patient to participate in milieu.
--- NOTE | 2021-06-29 16:30 | XR ---
EXAMINATION TYPE: XR chest 1V portable DATE OF EXAM: 06/29/2021 COMPARISON: NONE HISTORY: Placement, clearance TECHNIQUE: Single frontal view of the chest is obtained. FINDINGS: There is no focal air space opacity, pleural effusion, or pneumothorax seen. The cardiac silhouette size is within normal limits. The osseous structures are intact. Is overlying artifact. Right hemidiaphragm is elevated. IMPRESSION: No acute process.
[2021-06-30] MEDS: LIDOCAINE 5% PATCH TOPICAL SCH (08:39)
[2021-06-30] MEDS: IBUPROFEN 400 MG TAB PO PRN ×3 (08:51→23:57)
--- NOTE | 2021-06-30 10:59 | P.PN ---
Progress Note - Text Progress Note Date: 06/30/21 Interval History: Patient was seen resting in the lounge comfortably. The patient wishes to speak in the lounge and not in the privacy of the officer in the room. Currently, the patient is not reporting any suicidal or homicidal ideation, intention, and/or plan. She is not reporting any auditory or visual hallucinations. She is denying any paranoia or other delusions. Patient is calmly stating that she is feeling well and does express that she will be going to a supervised living facility on Sunday. She denies any issues regarding her medications. She reports that ibuprofen has been helping with her pain. Mental Status Exam: General Appearance: Patient appears to be stated age is alert, directable and cooperative. Behavior: Patient is lying in bed. No acute distress. Eye contact is good. Approach is cooperative, friendly and polite. Speech: Patient's speech is fluent, but non pressured, with normal rate and volume. Mood/Affect: Mood is "I'm doing good" Affect is pleasant and bright. Suicidality/Homicidality: Patient denies any suicidal or homicidal ideation, intention, and/or plan. Perceptions: No perceptual abnormalities are endorsed. Though content/process: No delusional thought content is endorsed today. No scientology preoccupation today. Memory and concentration: Grossly intact for the purposes of this session Judgment and insight: Fair. Vital Signs Temp 97.4 F L 06/30/21 06:37 Pulse 63 06/30/21 06:37 Resp 14 06/30/21 06:37 BP 117/67 06/30/21 06:37 Pulse Ox 94 L 05/19/21 00:39 Laboratory Results - Last 24 Hours 06/29/21 13:43 Coronavirus (PCR) Not Detected Assessment Schizoaffective disorder, bipolar type Plan: -Patient continues to meet criteria for inpatient psychiatric admission for symptom stabilization and safety. Patient is under court order and has a guardian. -Patient is into space for discharge on Sunday. -Medications: Prolixin-Decanoate 37.5 mg IM administered on 06/20/2021. -When necessary Ativan and Haldol for agitation/aggression. -SW on board for discharge planning. Encouraged the patient to participate in milieu.
[2021-07-01] MEDS: LIDOCAINE 5% PATCH TOPICAL SCH (08:37)
[2021-07-01] MEDS: IBUPROFEN 400 MG TAB PO PRN ×3 (08:48→23:30)
--- NOTE | 2021-07-01 19:26 | PN ---
PROGRESS NOTE DATE OF SERVICE: 07/01/2021 CHIEF COMPLAINT: The patient was admitted on pet. She had psychotic symptoms where she was expressing paranoid ideas and was hyperreligious. INTERVAL HISTORY: Patient has been doing fair. She had a quiet day yesterday. She comes out on the unit. She interacts with others. She attended most of the groups yesterday and seemed to participate in a positive way. She slept well last night. Today she has been up. She again is out and about. She has no specific complaints or concerns today. She seems to have good understanding about the discharge plans for Sunday. She says today that her thoughts are clear. She denies any hallucinations. She voices no thoughts of harm. She said her mood is even. She does not have significant anxiety issues. She has a good appetite. She is not on any psychotropic medications. She has a positive outlook about moving into the home situation that has been established for her. MENTAL STATUS EXAMINATION: Patient sat without restlessness. She gave good eye contact. She answered questions with brief responses. Her thoughts were clear. Her affect was in a reasonable range. She had an even mood. She presented in a calm manner. She did not appear to be distressed. There were no outward indications of thought disorder. She voiced no thoughts of harm. Cognition was clear. ASSESSMENT: I will continue the current diagnosis and treatment plan. I reviewed discharge planning as per the medical record. The patient appears to be making progress and it is anticipated she will be discharged on Sunday. JOSEF / LAWSON: [id number] /
[2021-07-02] MEDS: LIDOCAINE 5% PATCH TOPICAL SCH (08:16)
[2021-07-02] MEDS: IBUPROFEN 400 MG TAB PO PRN ×3 (08:18→23:36)
--- NOTE | 2021-07-02 16:35 | PN ---
PROGRESS NOTE DATE OF SERVICE: 07/02/2021. CHIEF COMPLAINT: The patient was admitted on . She had psychotic symptoms where she was expressing paranoid ideas and was hyper roman catholic. INTERVAL HISTORY: Patient has been doing fairly well. She had a quiet day yesterday. She comes out on the unit. She often will sit with 1 other person. She seems to be comfortable in the milieu. Sometimes she will sit by herself and seemed to be occupied by personal activities. At times she is seeing carrying out a large bag of various possessions she has on the unit. She has been attending groups. She said she slept well last night. Today she has been up and continues the same. She has had no complaints or concerns. She has good understanding of discharge planning. She continues off psychotropic medications. MENTAL STATUS: Patient gave fairly good eye contact. She was a little restless. She answered questions with brief responses. She did not say much. Gave direct answers. Her thoughts were clear. Her affect was in a reasonable range. Her mood was quiet though not down or depressed. She did not appear to be distressed. There was no outward evidence of thought disorder. There was no indication of thoughts of harm. Cognition was clear. ASSESSMENT: I will continue the current diagnosis and treatment plan. The patient is doing fairly well and it is anticipated she will be discharged on Sunday. MMOTTO / SARAHN: [id number] /
[2021-07-03] MEDS: LIDOCAINE 5% PATCH TOPICAL SCH (08:09)
[2021-07-03] MEDS: IBUPROFEN 400 MG TAB PO PRN ×3 (08:52→23:16)
--- NOTE | 2021-07-03 10:44 | PN ---
PROGRESS NOTE DATE OF SERVICE: 07/03/2021. CHIEF COMPLAINT: The patient was admitted on petition. She had psychotic symptoms where she was expressing paranoid ideas and was hyper taoism. INTERVAL HISTORY: The patient has been doing fair. She had a quiet day yesterday. She comes out on the unit. She will attend some groups. She tends to be mainly focused on personal issues. She will come out in the day area. She will interact some with others. She slept fairly well last night. Today she has been up. She has no specific complaints or concerns. It is noted that typically she will wander the unit carrying a sack of various possessions. She will sit at times and appears to be talking to herself. She is focused on discharge and seems to be comfortable with the discharge plans. She has been cooperative with care. MENTAL STATUS: Patient sat without restlessness. She gave fairly good eye contact. She responded to some questions appropriately. Other questions she seemed to defer or make some random comments. Her affect was in the reasonable range. She had a quiet manner. Her mood was even. She did appear to be distressed. She continues to show indications of responding to internal stimuli. She voiced no thoughts of harm. Cognition was clear. ASSESSMENT: I will continue the current diagnosis and treatment plan. Treatment planning anticipates her being discharged tomorrow to a stable living situation. We will review issues at team meeting tomorrow. JOSEF / LAWSON: [id number] /
[2021-07-04] MEDS ORDERED: fluPHENAZine DECANOATE 25 MG/ML 5ML MDV IM ONE (08:43)
[2021-07-04] MEDS: LIDOCAINE 5% PATCH TOPICAL SCH (08:49)
[2021-07-04] MEDS: IBUPROFEN 400 MG TAB PO PRN (08:50)
--- NOTE | 2021-07-04 14:16 | P.PN ---
Progress Note - Text Progress Note Date: 07/04/21 Interval History: Patient was seen at bedside. Patient is reporting she is doing well. She did r eceive Prolixin decanoate 50 mg IM ordered by the covering psychiatrist in preparation for her discharge. She took the medication willingly. She is currently not reporting any suicidal or homicidal ideation, intention, and/or plan. She reports no auditory or visual hallucinations. She reports no paranoia or other delusions. She was initially scheduled for discharge today but the treatment team was informed that her room at [facility] is currently not ready. We are anticipating discharge as soon as possible. Mental Status Exam: General Appearance: Patient appears to be stated age is alert, directable and cooperative. Behavior: Patient is lying in bed. No acute distress. Eye contact is good. Approach is cooperative, friendly and polite. Speech: Patient's speech is fluent, but non pressured, with normal rate and volume. Mood/Affect: Mood is "I'm quite alright." Affect is pleasant and bright. Suicidality/Homicidality: Patient denies any suicidal or homicidal ideation, intention, and/or plan. Perceptions: No perceptual abnormalities are endorsed. Though content/process: No delusional thought content is endorsed today. No mandaen preoccupation today. Memory and concentration: Grossly intact for the purposes of this session Judgment and insight: Fair. Vital Signs Temp 98.1 F 07/04/21 06:44 Pulse 65 07/04/21 06:44 Resp 16 07/04/21 06:44 BP 150/69 07/04/21 06:44 Pulse Ox 94 L 05/19/21 00:39 Assessment Schizoaffective disorder, bipolar type Plan: -Patient continues to meet criteria for inpatient psychiatric admission for symptom stabilization and safety. Patient is under court order and has a guardian. -Patient is into space for discharge on Sunday. -Medications: Prolixin Decanoate 50 mg IM was administered on 07/04/2021. She will be discharged with Prolixin Decanoate 37.5 mg IM to be scheduled every 3 weeks. -When necessary Ativan and Haldol for agitation/aggression. -SW on board for discharge planning. Encouraged the patient to participate in milieu.
[2021-07-05] MEDS: IBUPROFEN 400 MG TAB PO PRN ×4 (00:17→22:43)
[2021-07-05] MEDS: LIDOCAINE 5% PATCH TOPICAL SCH (08:50)
--- NOTE | 2021-07-05 11:51 | P.PN ---
Progress Note - Text Progress Note Date: 07/05/21 Interval History: Patient was seen at bedside. Patient received prolixin decanoate 50 mg IM ye sterday willingly. She is tolerating the medication well. She was seen at group participating well and appearing bright, friendly, and approachable. She is currently not reporting any suicidal or homicidal ideation, intention, and/or plan. She is not reporting any auditory or visual hallucinations. She reports no paranoia or other delusions. She is sleeping and eating well. Mental Status Exam: General Appearance: Patient appears to be stated age is alert, directable and cooperative. Behavior: Patient is lying in bed. No acute distress. Eye contact is good. Approach is cooperative, friendly and polite. Speech: Patient's speech is fluent, but non pressured, with normal rate and volume. Mood/Affect: Mood is "Doing well." Affect is pleasant and bright. Suicidality/Homicidality: Patient denies any suicidal or homicidal ideation, intention, and/or plan. Perceptions: No perceptual abnormalities are endorsed. Though content/process: No delusional thought content is endorsed today. No reli gious preoccupation today. Memory and concentration: Grossly intact for the purposes of this session Judgment and insight: Fair. Vital Signs Temp 97.8 F 07/05/21 06:41 Pulse 79 07/05/21 06:41 Resp 18 07/05/21 06:41 BP 128/72 07/05/21 06:41 Pulse Ox 94 L 05/19/21 00:39 Schizoaffective disorder, bipolar type Plan: -Patient continues to meet criteria for inpatient psychiatric admission for symptom stabilization and safety. Patient is under court order and has a guardian. -Awaiting placement. No beds available at [facility]. Considering crisis bed placement. Patient's 60 day order is up next week. -Medications: Prolixin Decanoate 50 mg IM was administered on 07/04/2021. She will be discharged with Prolixin Decanoate 37.5 mg IM to be scheduled every 3 weeks. -When necessary Ativan and Haldol for agitation/aggression. -SW on board for discharge planning. Encouraged the patient to participate in milieu.
[2021-07-06] MEDS: IBUPROFEN 400 MG TAB PO PRN ×2 (08:41→16:24)
[2021-07-06] MEDS: LIDOCAINE 5% PATCH TOPICAL SCH (08:42)
--- NOTE | 2021-07-06 11:22 | P.PN ---
Progress Note - Text Progress Note Date: 07/06/21 Interval History: [facility] Currently the patient not reporting any significant issues at this time. She continues to present as bright, friendly, and approachable. She is not reporting any suicidal or homicidal ideation, intention, and/or plan. She is not reporting auditory or visual hallucinations. She is not endorsing any cheondoism preoccupation. She denies any paranoia or other delusions. She reports no issues regarding her sleep or appetite. She de nies any side effects of her medication. Mental Status Exam: Unchanged from yesterday. General Appearance: Patient appears to be stated age is alert, directable and cooperative. Behavior: Patient is lying in bed. No acute distress. Eye contact is good. Approach is cooperative, friendly and polite. Speech: Patient's speech is fluent, but non pressured, with normal rate and volume. Mood/Affect: Mood is "Doing well." Affect is pleasant and bright. Suicidality/Homicidality: Patient denies any suicidal or homicidal ideation, intention, and/or plan. Perceptions: No perceptual abnormalities are endorsed. Though content/process: No delusional thought content is endorsed today. No cheondoism preoccupation today. Memory and concentration: Grossly intact for the purposes of this session Judgment and insight: Fair. Vital Signs Temp 97.8 F 07/05/21 06:41 Pulse 79 07/05/21 06:41 Resp 18 07/05/21 06:41 BP 128/72 07/05/21 06:41 Pulse Ox 94 L 05/19/21 00:39 Assessment: Schizoaffective disorder, bipolar type Plan: -Patient continues to meet criteria for inpatient psychiatric admission for symptom stabilization and safety. Patient is under court order and has a gua rdian. -Awaiting placement. No beds available at [facility]. Considering crisis bed placement. Patient's 60 day order is up next week. -Medications: Prolixin Decanoate 50 mg IM was administered on 07/04/2021. She will be discharged with Prolixin Decanoate 37.5 mg IM to be scheduled every 3 weeks. -When necessary Ativan and Haldol for agitation/aggression. -SW on board for discharge planning. Encouraged the patient to participate in milieu.
[2021-07-07] MEDS: LIDOCAINE 5% PATCH TOPICAL SCH (08:33)
[2021-07-07] MEDS: IBUPROFEN 400 MG TAB PO PRN ×3 (09:05→22:45)
--- NOTE | 2021-07-07 11:21 | P.PN ---
Progress Note - Text Progress Note Date: 07/07/21 Interval History: Patient was seen wandering the hallways. Patient is currently reporting no s uicidal or homicidal ideation, intention,/or plan. She has been adherent with her medication is not endorsing any significant side effects. She is not reporting auditory or visual hallucinations. She is denying any paranoia or delusions. She does not appear to be religiously preoccupied. She has been sleeping and eating well. Only concern is her joint pain which she states is well managed with the use of ibuprofen. Mental Status Exam: Unchanged from yesterday. General Appearance: Patient appears to be stated age is alert, directable and cooperative. Behavior: Patient is lying in bed. No acute distress. Eye contact is good. Approach is cooperative, friendly and polite. Speech: Patient's speech is fluent, but non pressured, with normal rate and volume. Mood/Affect: Mood is "Feeling good." Affect is pleasant and bright. Suicidality/Homicidality: Patient denies any suicidal or homicidal ideation, intention, and/or plan. Perceptions: No perceptual abnormalities are endorsed. Though content/process: No delusional thought content is endorsed today. No mormonism preoccupation today. Memory and concentration: Grossly intact for the purposes of this session Judgment and insight: Fair. Vital Signs Temp 97.8 F 07/05/21 06:41 Pulse 79 07/05/21 06:41 Resp 18 07/05/21 06:41 BP 128/72 07/05/21 06:41 Pulse Ox 94 L 05/19/21 00:39 Assessment: Schizoaffective disorder, bipolar type Plan: -Patient continues to meet criteria for inpatient psychiatric admission for symptom stabilization and safety. Patient is under court order and has a guardian. -Awaiting placement. No beds available at [facility]. Considering crisis bed placement. Patient's 60 day order is up next week. -Medications: Prolixin Decanoate 50 mg IM was administered on 07/04/2021. She will be discharged with Prolixin Decanoate 37.5 mg IM to be scheduled every 3 weeks. -When necessary Ativan and Haldol for agitation/aggression. -SW on board for discharge planning. Encouraged the patient to participate in milieu.
[2021-07-08] MEDS: IBUPROFEN 400 MG TAB PO PRN ×3 (08:52→22:37)
[2021-07-08] MEDS: LIDOCAINE 5% PATCH TOPICAL SCH (08:53)
--- NOTE | 2021-07-08 10:55 | P.PN ---
Progress Note - Text Progress Note Date: 07/08/21 Interval History: Patient was seen resting in bed comfortably. She is currently not endorsing any manic or psychotic behavior. No suicidal or homicidal ideation, intention, and/or plan is endorsed. No auditory or visual hallucinations. No paranoia or rastafari preoccupation mentioned. She reports joint pain but denies any side effects from her prolixin decanoate injection. Mental Status Exam: Unchanged from yesterday. General Appearance: Patient appears to be stated age is alert, directable and cooperative. Behavior: Patient is lying in bed. No acute distress. Eye contact is good. Approach is cooperative, friendly and polite. Speech: Patient's speech is fluent, but non pressured, with normal rate and volume. Mood/Affect: Mood is "Doing alright." Affect is pleasant and bright. Suicidality/Homicidality: Patient denies any suicidal or homicidal ideation, intention, and/or plan. Perceptions: No perceptual abnormalities are endorsed. Though content/process: No delusional thought content is endorsed today. No rastafari preoccupation today. Memory and concentration: Grossly intact for the purposes of this session Judgment and insight: Fair. Vital Signs Temp 97.1 F L 07/08/21 07:07 Pulse 68 07/08/21 07:07 Resp 18 07/08/21 07:07 BP 118/74 07/08/21 07:07 Pulse Ox 94 L 05/19/21 00:39 Assessment: Schizoaffective disorder, bipolar type Plan: -Patient continues to meet criteria for inpatient psychiatric admission for symptom stabilization and safety. Patient is under court order and has a guardian. -Awaiting placement. No beds available at [facility]. Considering crisis bed placement. Patient's 60 day order is up end of june. -Medications: Prolixin Decanoate 50 mg IM was administered on 07/04/2021. She will be discharged with Prolixin Decanoate 37.5 mg IM to be scheduled every 3 weeks (due on 07/25/2021). -When necessary Ativan and Haldol for agitation/aggression. -SW on board for discharge planning. Encouraged the patient to participate in milieu.
[2021-07-09] MEDS: LIDOCAINE 5% PATCH TOPICAL SCH (08:49)
--- NOTE | 2021-07-09 15:03 | P.PN ---
Progress Note - Text Progress Note Date: 07/09/21 Clinical Problems: Bipolar disorder, type I with psychotic features versus schizoaffective disorder, bipolar type Interim history: I reviewed the medical record, interviewed the patient and discussed her treatment and treatment plan during team meeting. This has been in extended hospitalization were today guerra or 66 day on the unit. She denied problems or concerns other than Prolixin. She wanted me to know that she does not want to take Prolixin and does not like how Prolixin makes her feel. She again explained that she eventually plans to visit with family in [place]. She let she has spoken with someone who lives in [place]. However, she is awaiting placement at [facility]. She intermittently attends therapeutic groups and activities. She has had no recent episodes of behavioral dyscontrol. Mental status exam: She presented as disheveled appearing elderly woman who made eye contact and cooperated with the interview. She had a blunted facial expression. She was alert and oriented to person, place and time. She had apparent involuntary movements of her legs.. Her speech was spontaneous with decreased rate and rhythm. Her affect wanted but stable She did not express suicidal ideation, wishes or homicidal ideation. She denied feeling hopelessness, helplessness or worthlessness. She did not ruminate about [place]. She did not express clear ideas reference. She did not appear guarded, suspicious and paranoid and did not express paranoid ideation or delusions. Her thinking was very concrete and associations were stilted. She did not appear to be responding to internal stimuli. Assessment: She is seriously mentally ill and much improve from admission. She has no insight or understanding of illness or need for treatment. Plan: Continue inpatient treatment. Safety precautions. Continue Prolixin Decanoate 37.5 mg IM every 3 weeks; next injection is due 07/25/2021. Haldol and/or Ativan for anxiety, agitation acute psychosis. Continue participation in therapeutic groups and activities. Evaluate clinical status response to treatment daily basis.
[2021-07-09] MEDS: IBUPROFEN 400 MG TAB PO PRN ×2 (16:31→22:23)
[2021-07-10] MEDS: LIDOCAINE 5% PATCH TOPICAL SCH (08:18)
[2021-07-10] MEDS: IBUPROFEN 400 MG TAB PO PRN ×3 (08:19→22:01)
--- NOTE | 2021-07-10 10:14 | P.PN ---
Progress Note - Text Progress Note Date: 07/10/21 Clinical Problems: Bipolar disorder, type I with psychotic features versus schizoaffective disorder, bipolar type Interim history: I reviewed the medical record and interviewed the patient. This has been in extended hospitalization were today or on the unit. She denied problems or concerns. She is only waking "to get out of here." She last attended therapeutic groups and activities on Sunday. She spends most of her time alone in her room coming out for meals and joshua. She has had no recent episodes of behavioral dyscontrol. Mental status exam: She presented as disheveled appearing elderly woman who made eye contact and cooperated with the interview. She had a blunted facial expression. She was alert and oriented to person, place and time. She had apparent involuntary movements of her legs. Her speech was spontaneous with decreased rate and rhythm. Her affect wanted but stable She did not express suicidal ideation, wishes or homicidal ideation. She denied feeling hopelessness, helplessness or worthlessness. She did not ruminate about [place] L. She did not express clear ideas reference. She did not appear guarded, suspicious and paranoid and did not express paranoid ideation or delusions. Her thinking was very concrete and associations were stilted. She did not appear to be responding to internal stimuli. Assessment: She is seriously mentally ill and much improve from admission. She has no insight or understanding of illness or need for treatment. Plan: Continue inpatient treatment. Safety precautions. Continue Prolixin Decanoate 37.5 mg IM every 3 weeks; next injection is due 07/25/2021. Haldol and/or Ativan for anxiety, agitation acute psychosis. Continue participation in therapeutic groups and activities. Evaluate clinical status response to treatment daily basis.
[2021-07-11 00:32] VITALS: BP 147/71; PULSE 81; RESP 12; TEMP 97
[2021-07-11] MEDS: IBUPROFEN 400 MG TAB PO PRN ×3 (08:39→22:47)
[2021-07-11] MEDS: LIDOCAINE 5% PATCH TOPICAL SCH (08:39)
--- NOTE | 2021-07-11 11:52 | P.PN ---
Progress Note - Text Progress Note Date: 07/11/21 Interval History: Patient was seen wandering the halls with her belongings. The patient is not endorsing any suicidal or homicidal ideation, intention, and/or plan. She is not reporting any auditory or visual hallucinations. The patient appears to be expecting discharge anytime soon. She is inquiring about when she will be able to leave. She is not reporting any issues regarding her sleep or appetite. She appears to be tolerating her medication well. She is not reporting any paranoid or delusional thoughts at this time. She is not reporting any mandaen preoccupation. Mental Status Exam: Unchanged from yesterday. General Appearance: Patient appears to be stated age is alert, directable and cooperative. Behavior: Patient is wandering the halls with her belongings. No acute distress. Eye contact is good. Approach is cooperative and pleasant. Speech: Patient's speech is fluent, but non pressured, with normal rate and volume. Mood/Affect: Mood is "I'm good Dr Parra." Affect is pleasant and bright. Suicidality/Homicidality: Patient denies any suicidal or homicidal ideation, intention, and/or plan. Perceptions: No perceptual abnormalities are endorsed. Though content/process: No delusional thought content is endorsed today. No mandaen preoccupation today. Memory and concentration: Grossly intact for the purposes of this session Judgment and insight: Fair. Vital Signs Temp 97.0 F L 07/11/21 00:30 Pulse 81 07/11/21 00:30 Resp 12 07/11/21 00:30 BP 147/71 07/11/21 00:30 Pulse Ox 94 L 05/19/21 00:39 Intake & Output 07/10/21 07/11/21 07/11/21 18:59 06:59 18:59 Weight 68.1 kg Assessment: Schizoaffective disorder, bipolar type Plan: -Patient continues to meet criteria for inpatient psychiatric admission for symptom stabilization and safety. Patient is under court order and has a guardian. -Awaiting placement. No beds available at [facility]. Considering crisis bed placement. Patient's 60 day order is up end of july 17. -Medications: Prolixin Decanoate 50 mg IM was administered on 07/04/2021. She will be di scharged with Prolixin Decanoate 37.5 mg IM to be scheduled every 3 weeks (due on 07/25/2021). -When necessary Ativan and Haldol for agitation/aggression. -SW on board for discharge planning. Encouraged the patient to participate in milieu.
[2021-07-11 13:37] VITALS: BMI 28.3
[2021-07-12] MEDS: LIDOCAINE 5% PATCH TOPICAL SCH (08:22)
[2021-07-12] MEDS: IBUPROFEN 400 MG TAB PO PRN ×3 (08:22→22:22)
--- NOTE | 2021-07-12 13:24 | P.PN ---
Progress Note - Text Progress Note Date: 07/12/21 Interval History: Patient was seen resting in bed. Grossly unchanged from yesterday. The patient is not endorsing any suicidal or homicidal ideation, intention, and/or plan. She is not reporting any auditory or visual hallucinations. The patient appears to be expecting discharge anytime soon. She is inquiring about when she will be able to leave. She is not reporting any issues regarding her sleep or appetite. She appears to be tolerating her medication well. She is not reporting any paranoid or delusional thoughts at this time. She is not reporting any latter day preoccupation. No side effects of her medication endorsed. Mental Status Exam: Unchanged from yesterday. General Appearance: Patient appears to be stated age is alert, directable and cooperative. Behavior: Patient is wandering the halls with her belongings. No acute distress. Eye contact is good. Approach is cooperative and pleasant. Speech: Patient's speech is fluent, but non pressured, with normal rate and volume. Mood/Affect: Mood is "I'm good and Ralph loves you." Affect is pleasant and bright. Suicidality/Homicidality: Patient denies any suicidal or homicidal ideation, intention, and/or plan. Perceptions: No perceptual abnormalities are endorsed. Though content/process: No delusional thought content is endorsed today. No latter day preoccupation today. Memory and concentration: Grossly intact for the purposes of this session Judgment and insight: Fair. Vital Signs Temp 97.0 F L 07/11/21 00:30 Pulse 81 07/11/21 00:30 Resp 12 07/11/21 00:30 BP 147/71 07/11/21 00:30 Pulse Ox 94 L 05/19/21 00:39 Intake & Output 07/11/21 07/12/21 07/12/21 18:59 06:59 18:59 Weight 68.1 kg Assessment: Schizoaffective disorder, bipolar type Plan: -Patient continues to meet criteria for inpatient psychiatric admission for symptom stabilization and safety. Patient is under court order and has a guardian. -Awaiting placement. No beds available at [facility]. Considering crisis bed placement. Patient's 60 day order is up end of july 17. Anticipate discharge tomorrow. -Medications: Prolixin Decanoate 50 mg IM was administered on 07/04/2021. She will be discharged with Prolixin Decanoate 37.5 mg IM to be scheduled every 3 weeks (due on 07/25/2021). -When necessary Ativan and Haldol for agitation/aggression. -SW on board for discharge planning. Encouraged the patient to participate in milieu.
[2021-07-13] MEDS: LIDOCAINE 5% PATCH TOPICAL SCH (08:33)
[2021-07-13] MEDS: IBUPROFEN 400 MG TAB PO PRN ×2 (11:19→16:05)
--- NOTE | 2021-07-13 11:30 | P.PN ---
Progress Note - Text Progress Note Date: 07/13/21 Interval History: Patient was seen resting in bed. Grossly unchanged from yesterday. The patient is not endorsing any suicidal or homicidal ideation, intention, and/or plan. She is not reporting any auditory or visual hallucinations. The patient appears to be expecting discharge anytime soon. She is inquiring about when she will be able to leave. She is not reporting any issues regarding her sleep or appetite. She appears to be tolerating her medication well. She is not reporting any paranoid or delusional thoughts at this time. She is not reporting any confucianist preoccupation. No side effects of her medication endorsed. Today is the patient's birthday. She presents as bright. Mental Status Exam: Unchanged from yesterday. General Appearance: Patient appears to be stated age is alert, directable and cooperative. Behavior: Patient is wandering the halls with her belongings. No acute distress. Eye contact is good. Approach is cooperative and pleasant. Speech: Patient's speech is fluent, but non pressured, with normal rate and volume. Mood/Affect: Mood is "I'm well" Affect is pleasant and bright. Suicidality/Homicidality: Patient denies any suicidal or homicidal ideation, intention, and/or plan. Perceptions: No perceptual abnormalities are endorsed. Though content/process: No delusional thought content is endorsed today. No confucianist preoccupation today. Memory and concentration: Grossly intact for the purposes of this session Judgment and insight: Fair. Vital Signs Temp 97.0 F L 07/11/21 00:30 Pulse 81 07/11/21 00:30 Resp 12 07/11/21 00:30 BP 147/71 07/11/21 00:30 Pulse Ox 94 L 05/19/21 00:39 Assessment: Schizoaffective disorder, bipolar type Plan: -Patient continues to meet criteria for inpatient psychiatric admission for symptom stabilization and safety. Patient is under court order and has a guardian. -Awaiting placement. Patient's 60 day order is up end of july 17. Anticipate discharge today pending placement. -Medications: Prolixin Decanoate 50 mg IM was administered on 07/04/2021. She will be discharged with Prolixin Decanoate 37.5 mg IM to be scheduled every 3 weeks (due on 07/25/2021). -When necessary Ativan and Haldol for agitation/aggression. -SW on board for discharge planning. Encouraged the patient to participate in milieu.
--- NOTE | 2021-07-13 14:46 | P.DS ---
Providers Date of admission: 05/04/21 15:59 Expected date of discharge: 07/13/21 Attending physician: Guillermo Resendiz MD Consults: 05/04/21 16:05 Consult Physician Routine Consulting Provider: Ingris Andrews Consult Reason/Comments: H and P Do you want consulting provider notified?: Yes Primary care physician: Physician Nonstaff - Discharge Diagnosis(es) (1) Schizoaffective disorder, bipolar type Current Visit: Yes Status: Acute Priority: High Hospital Course: Admission HPI: Patient is a single, unemployed, homeless, 65 year-old female who was admitted for psychosis. Patient presented to the hospital on 05/04/2021. As previously noted, the patient was brought to the ER by EMS after being at a restaurant in [place]. Patient reports she was trying to go to [place] to be with her cousins in [place] as she states that "Muslims have taken over [place], [place]." Furthermore, the patient reports that Malian Christians are being "experimented on" and being given bad prescriptions. She also suspects that this is a ploy from the Muslims or taking over. The patient does express that she is going to [place] to escape all of this. She does state that she did not inform her family members that she'll be going to [place], and is quite confused at this provider asking whether she informed them were not stating that she does not need to inform them. The patient is noted to be quite resourceful, going from Motel room to motel room in [facility] and in the surrounding area. There is a question whether she was recently admitted to a psychiatric unit in [place]. The patient does express strong disdain for the mental health profession, stating that she does not want to be experimented on by the psychiatrists in the mental health system. The patient is quite religiously preoccupied, and replies to this provider, "they tried to put me on medications but I prayed to God and had them boomerang it back to them." The patient is unable to answer any further questions regarding any other symptoms. She continues to display pressured speech and is uncooperative with the rest of the interview. Hospital course: Upon admission to the unit patient was initially presenting with significant manic and psychotic symptoms including pressured speech, alevism preoccupation, grandiosity, and elevated psychomotor activity. The patient will also noted not to sleep. The patient was not agreeable to treatment or the admission to the hospital. She therefore was refusing medications and was subsequently certified. The patient was eventually agreeable to trialing some oral Invega. She tolerated the Invega well but displayed no significant improvements in regards to her target symptoms of psychosis. She continued to be disruptive in the milieu and in groups often ranting about how "Muslims or taking over" and alevism ideations. The patient was eventually court ordered on a 05/18/21. The patient was then placed on Prolixin to control her psychotic symptoms and if she was to refuse her oral Prolixin she was to be given IM Proli yobani. The patient expressed significant disdain for this and was angry at this provider. Eventually, the Prolixin was titrated to final dose of 10 mg twice a day and the patient displayed significant improvement. Although she continued to be somewhat religiously preoccupied, she was less forthcoming with any further delusions and was less disruptive in the milieu. The patient was then administered Prolixin Decanoate 25 mg IM on 05/30/2021. The patient was initially going to be discharged but vehemently denied any need for mental health treatment and refused to follow-up with any outpatient appointments and the claim verbally agitated. Discharge was withheld. The patient was then placed back on oral Prolixin as the patient continued to display some manic symptoms and alevism preoccupation and paranoia. Eventually, the patient was administered Prolixin Decanoate 37.5 mg IM on 06/20/2021. On this regimen, the patient displayed significant improvement in regards to her target symptoms. She became much more calm and cooperative with staff and peers and was less forthcoming with any alevism preoccupation or paranoid delusions. A covering provider ordered Prolixin Decanoate 50 mg IM that was administered on 07/04/2021 as well. The patient continued to tolerate the medication well and was calm and cooperative with staff and peers and attended groups with high participation and frequency. The primary concern was that the guardian was requesting that the patient stay inpatient until we find appropriate placement in terms of housing. Initially, the patient was to be discharged to [place] but the housing facility continue to push back the patient's admission stating that "her room is not ready." The patient's [address] hospitalization is due to be up on 07/17/2021. This has been ongoing for the last 2-3 weeks and during this whole entire time, the patient was calm and stable. The decision was finally made that we were to discharge the patient to a motel/hotel with [facility] to follow up and check in on her. The patient is also scheduled for intake appointment with [facility] on the following Sunday. On the day of discharge, the patient is not endorsing any suicidal or homicidal ideation, intention, and/or plan. She is not reporting any auditory or visualizations. She is denying any overt paranoia and reports alevism preoccupation. She is tolerating her Prolixin injection well. She was informed that she needs to follow-up with outpatient appointments. Prior to this admission, the patient was quite resourceful staying at different hotels in [facility]. As she is a transplant from [place], and has no home currently present, patient is deemed resourceful and safe enough with enough insight and judgment to return back to a motel. The patient took care of her own hygiene and grooming and displayed no issues taking care of her activities of daily living. She was encouraged him counseled on her medications and need for regular adh erence as well as to follow-up with outpatient appointments. The patient had her 66th birthday during this admission. Mental status exam: General Appearance: Patient appears to be stated age is alert, pleasant, and cooperative. Patient is in no acute distress and has fair hygiene and grooming. Approach is friendly today. Behavior: Patient is calmly seated without any agitated behavior. Pleasant and polite on approach. Speech: Patient's speech is fluent and nonpressured. Mood/Affect: Patient reports their mood is "good", affect is congruent and euthymic to bright. Suicidality/Homicidality: Patient denies having any suicidal or homicidal ideation intent or plan. Perceptions: Patient denies any auditory or visual hallucinations. Though content/process: No delusional thought content. Thought process is linear and logical. Memory and concentration: AOX3, grossly intact for the purposes of this session. Can spell "WORLD" backwards correctly. Judgment and insight: Improved Vital Signs Temp 97.0 F L 07/11/21 00:30 Pulse 81 07/11/21 00:30 Resp 12 07/11/21 00:30 BP 147/71 08/23/21 00:30 Pulse Ox 94 L 05/19/21 00:39 Impression: Schizoaffective disorder, bipolar type Homelessness Plan: -Continue with discharge today as patient has improved and stabilized psychiatrically and is not currently an imminent threat to herself and/or others. -Continue medications: Prolixin Decanoate 50 mg IM was administered on 07/04/2021. She will be discharged with Prolixin Decanoate 37.5 mg IM to be scheduled every 3 weeks (due on 07/25/2021). -Patient was counseled on the need for medication compliance and appropriate follow-up at mental health and also primary care for medical issues. Patient verbalized understanding and agreed. -Social work also to arrange for patients follow up appointments with [facility] for psychiatric care along with follow up with primary care provider. -Patient counseled on abstaining from recreational drugs and marijuana and alc ohol. Was informed/educated on the adverse effects on their physical and mental health. Patient verbally agreed and understood. -Patient was instructed to return to the hospital or seek immediate medical care if their psychiatric or medical symptoms do worsen or reoccur. -Psychoeducation and supportive therapy provided to patient. Risks and benefits of pharmacological treatment versus the risks and benefits of nontreatment weighed and discussed. Informed consent discussion held. Common side effects of psychotropics discussed such as, but not limited to headache, GI disturbance, sexual dysfunction, movement disorders, sedation, and orthostatic hypotension. Life threatening and blackbox warnings of prescribed medications also discussed. Potential risks of operating a vehicle or heavy machinery discussed with patient at length. Advised on importance of compliance in a reliable and responsible manner. Patient advised to review FDA consumer labeling of all medications prior to taking. Patient verbalized understanding of potential risks, and agrees with current treatment plan. Patient advised to medically contact physician/emergency personnel if any acute changes in condition occur. Laboratory Results WBC 9.8 k/uL (3.8-10.6) 06/10/21 15:28 RBC 4.96 m/uL (3.80-5.40) 06/10/21 15:28 Hgb 14.9 gm/dL (11.4-16.0) 06/10/21 15:28 Hct 45.6 % (34.0-46.0) 06/10/21 15:28 MCV 91.8 fL (80.0-100.0) 06/10/21 15:28 MCH 30.0 pg (25.0-35.0) 06/10/21 15:28 MCHC 32.7 g/dL (31.0-37.0) 06/10/21 15:28 RDW 12.8 % (11.5-15.5) 06/10/21 15:28 Plt Count 293 k/uL (150-450) 06/10/21 15:28 MPV 6.2 06/10/21 15:28 Neutrophils % 71 % 05/05/21 09:36 Lymphocytes % 18 % 05/05/21 09:36 Monocytes % 6 % 05/05/21 09:36 Eosinophils % 3 % 05/05/21 09:36 Basophils % 1 % 05/05/21 09:36 Neutrophils # 6.1 k/uL (1.3-7.7) 05/05/21 09:36 Lymphocytes # 1.6 k/uL (1.0-4.8) 05/05/21 09:36 Monocytes # 0.5 k/uL (0-1.0) 05/05/21 09:36 Eosinophils # 0.2 k/uL (0-0.7) 05/05/21 09:36 Basophils # 0.1 k/uL (0-0.2) 05/05/21 09:36 Sodium 136 mmol/L (137-145) L 06/10/21 15:28 Potassium 4.4 mmol/L (3.5-5.1) 06/10/21 15:28 Chloride 99 mmol/L (98-107) 06/10/21 15:28 Carbon Dioxide 30 mmol/L (22-30) 06/10/21 15:28 Anion Gap 7 mmol/L 06/10/21 15:28 BUN 15 mg/dL (7-17) 06/10/21 15:28 Creatinine 0.63 mg/dL (0.52-1.04) 06/10/21 15:28 Est GFR (CKD-EPI)AfAm >90 (>60 ml/min/1.73 sqM) 06/10/21 15:28 Est GFR (CKD-EPI)NonAf >90 (>60 ml/min/1.73 sqM) 06/10/21 15:28 Glucose 88 mg/dL (74-99) 06/10/21 15:[address] Glu mg/dL 100 05/05/21 09:36 Hemoglobin A1c 5.1 % (4.0-6.0) 05/05/21 09:36 Calcium 9.9 mg/dL (8.4-10.2) 06/10/21 15:28 Total Bilirubin 0.5 mg/dL (0.2-1.3) 05/05/21 09:36 AST 21 U/L (14-36) 05/05/21 09:36 ALT 10 U/L (4-34) 05/05/21 09:36 Alkaline Phosphatase 81 U/L (38-126) 05/05/21 09:36 Creatine Kinase 73 U/L (30-135) 05/04/21 12:14 Total Protein 7.0 g/dL (6.3-8.2) 05/05/21 09:36 Albumin 4.5 g/dL (3.5-5.0) 05/05/21 09:36 Triglycerides 95.0 mg/dL (0.0-149.0) 05/05/21 09:36 Cholesterol 231 mg/dL (0-200) H 05/05/21 09:36 LDL Cholesterol, Calc 128.0 mg/dL (0.0-131.0) 05/05/21 09:36 VLDL Cholesterol, Calc 19.00 mg/dL (5.00-40.00) 05/05/21 09:36 HDL Cholesterol 84.0 mg/dL (40.0-60.0) H 05/05/21 09:36 Cholesterol/HDL Ratio 2.75 05/05/21 09:36 TSH 6.040 mIU/L (0.465-4.680) H 05/05/21 09:36 Free T4 0.78 ng/dL (0.78-2.19) 05/05/21 09:36 Urine Color Colorless 06/17/21 21:18 Urine Appearance Clear (Clear) 06/17/21 21:18 Urine pH 6.5 (5.0-8.0) 06/17/21 21:[address] [place] 1.004 (1.001-1.035) 06/17/21 21:18 Urine Protein Negative (Negative) 06/17/21 21:18 Urine Glucose (UA) Negative (Negative) 06/17/21 21:18 Urine Ketones Negative (Negative) 06/17/21 21:18 Urine Blood Negative (Negative) 06/17/21 21:18 Urine Nitrite Negative (Negative) 06/17/21 21:18 Urine Bilirubin Negative (Negative) 06/17/21 21:18 Urine Urobilinogen <2.0 mg/dL (<2.0) 06/17/21 21:18 Ur Leukocyte Esterase Moderate (Negative) H 06/17/21 21:18 Urine RBC <1 /hpf (0-5) 06/17/21 21:18 Urine WBC 4 /hpf (0-5) 06/17/21 21:18 Ur Squamous Epith Cells <1 /hpf (0-4) 06/17/21 21:18 Urine Bacteria Rare /hpf (None) H 05/04/21 Unknown Urine Opiates Screen Negative ng/mL (Negative) 05/05/21 Unknown Urine Methadone Screen Negative ng/mL (Negative) 05/05/21 Unknown Ur Propoxyphene Screen Negative ng/mL (Negative) 05/05/21 Unknown Urine Barbiturates Negative ng/mL (Negative) 05/05/21 Unknown Ur Phencyclidine Scrn Negative ng/mL (Negative) 05/05/21 Unknown Ur Amphetamine Screen Negative ng/mL (Negative) 05/05/21 Unknown U Benzodiazepines Scrn Negative ng/mL (Negative) 05/05/21 Unknown Urine Cocaine Screen Negative ng/mL (Negative) 05/05/21 Unknown U Cannabinoids Screen Negative ng/mL (Negative) 05/05/21 Unknown Urine Alcohol Negative mg/dL (Negative) 05/05/21 Unknown Coronavirus (PCR) Not Detected (Not Detectd) 06/29/21 13:43 Allergies Allergy/AdvReac Type Severity Reaction Status Date / Time acetaminophen [From Tylenol] AdvReac Mild Unknown Verified 05/04/21 18:12 Patient Condition at Discharge: Stable Plan - Discharge Summary Discharge Rx Participant: No New Discharge Prescriptions: New Ibuprofen [Motrin] 400 mg PO TID PRN 30 Days tab PRN Reason: Pain fluPHENAZine decanoate [Prolixin Decanoate] 37.5 mg IM QMONTHLY #1 vial Discontinued Ibuprofen [Motrin] 400 mg PO Q6HR PRN PRN Reason: Pain Discharge Medication List Ibuprofen [Motrin] 400 mg PO TID PRN 30 Days tab 06/01/21 [Rx] fluPHENAZine decanoate [Prolixin Decanoate] 37.5 mg IM QMONTHLY #1 vial 07/04/21 [Rx] Follow up Appointment(s)/Referral(s): [facility] [Outside] - 07/18/21 12:30 pm (Intake with [facility] @ 12:30) [facility] [NON-STAFF] - 1 Week Patient Instructions/Handouts: Schizoaffective Disorder (GEN) Activity/Diet/Wound Care/Special Instructions: Activity and diet as tolerated. Avoid the use of street drugs and alcohol. Take all medications as prescribed. When you are in need of refills on your medications please contact your medical provider and/or outpatient psychiatrist to have this done. Please go to scheduled outpatient appointment for aftercare treatment. If symptoms return or become worse, call the crisis line at and/or go to the nearest emergency room for evaluation. Discharge Disposition: HOME SELF-CARE
== END 2021-07-13 16:55 | disposition home or self-care (01) | DRG 885 ==
LOC: EC 22:38 → 3MHU 05-04 15:59
PROVIDERS: ADMIT Psychiatry & Neurology Psychiatry; ATTEND Psychiatry & Neurology Psychiatry
DX: F25.0 Schizoaffective disorder, bipolar type (principal); M19.90 Unspecified osteoarthritis, unspecified site; Z59.0 Homelessness; Z56.0 Unemployment, unspecified; Z20.822 Contact with and (suspected) exposure to COVID-19; G89.29 Other chronic pain; M54.2 Cervicalgia; M54.5 Low back pain; Z82.0 Family history of epilepsy and other diseases of the nervous system; Z88.6 Allergy status to analgesic agent; Z90.49 Acquired absence of other specified parts of digestive tract; Z91.83 Wandering in diseases classified elsewhere
CPT/HCPCS: 36415; 71045; 80048; 80053; 80061; 80306; 81001; 82075; 82550; 83036; 84439; 84443; 85025; 85027; 87635; 99285

== ENCOUNTER 2021-08-04 20:25 | Emergency (ER) | payer MEDICARE ==
[2021-08-04 20:37] VITALS: TEMP 98.7
--- NOTE | 2021-08-04 21:18 | ED ---
General Adult HPI - General Source: patient, police Mode of arrival: ambulatory Limitations: no limitations <MirandaWandaeryn Tatum - Last Filed: 08/04/21 21:17> <Allen Andres - Last Filed: 08/05/21 03:46> - General Chief complaint: Psychiatric Symptoms Stated complaint: Petition Time Seen by Provider: 08/04/21 20:54 - History of Present Illness Initial comments: Dictation was produced using [email or web address] dictation software. please excuse any grammatical, word or spelling errors. Chief Complaint: 66-year-old female brought in by law enforcement for pickup driver order History of Present Illness: 66-year-old female past medical history of psychiatric disease. She is brought in by police department for pickup driver order. Order was filled out by psychiatrist and an individual. Patient allegedly has not been taking her medications. Patient denies suicidal or homicidal ideation. She denies any visual auditory hallucinations. She was cooperative with enforcement. She does not feel the need to be here. The ROS documented in this emergency department record has been reviewed and confirmed by me. Those systems with pertinent positive or negative responses have been documented in the HPI. All other systems are other negative and/or noncontributory. PHYSICAL EXAM: General Impression: Alert and oriented x3, not in acute distress HEENT: Normocephalic atraumatic, extra-ocular movements intact, pupils equal and reactive to light bilaterally, mucous membranes moist. Cardiovascular: Heart regular rate and rhythm Chest: Able to complete full sentences, no retractions, no tachypnea Abdomen: abdomen soft, non-tender, non-distended, no organomegaly Musculoskeletal: Pulses present and equal in all extremities, no peripheral edema Motor: no focal deficits noted Neurological: CN II-XII grossly intact, no focal motor or sensory deficits noted Skin: Intact with no visualized rashes Psych: Druze statements, pleasant ED course: 66-year-old female brought in as pickup driver order. Vital signs On arrival are within acceptable limits. Patient is well-appearing. Physical exa mination is benign. Patient has no medical complaints. Patient mildly psychotic. supervisor paper machine order was reviewed. Patient medically cleared for EPS evaluation. EKG interpretation: Ventricular rate [default value]. No NH prolongation, no QTC prolongation, no ST or T-wave changes noted. EKG compared to [default value] showing no changes. Overall, this EKG is unremarkable (Derek Jean) - Related Data Home Medications Medication Instructions Recorded Confirmed Ibuprofen [Motrin Ib] 400 mg PO Q8H PRN 08/04/21 08/04/21 fluPHENAZine decanoate [Prolixin 37.5 mg IM Q21D 08/04/21 08/04/21 Decanoate] Allergies Allergy/AdvReac Type Severity Reaction Status Date / Time acetaminophen [From Tylenol] AdvReac Mild "Irritable" Verified 08/04/21 22:56 Review of Systems ROS Other: All systems not noted in ROS Statement are negative. <Derek Jean - Last Filed: 08/04/21 21:17> ROS Other: All systems not noted in ROS Statement are negative. <Allen Andres - Last Filed: 08/05/21 03:46> ROS Statement: Those systems with pertinent positive or pertinent negative responses have been documented in the HPI. Past Medical History Past Medical History: No Reported History Additional Past Medical History / Comment(s): Arthritis, neck/back pain, psoriasis, hypoglycemia, short term memory loss x10 years (lived in an un-named assisted living facility in [place], [place] for 10 years) History of Any Multi-Drug Resistant Organisms: None Reported Past Surgical History: Appendectomy Past Anesthesia/Blood Transfusion Reactions: Unable to Obtain Past Psychological History: No Psychological Hx Reported Smoking Status: Never smoker Past Alcohol Use History: None Reported Past Drug Use History: None Reported - Past Family History Mother Additional Family Medical History / Comment(s): Alzheimer's Father Additional Family Medical History / Comment(s): Parkinson's <Derek Jean - Last Filed: 08/04/21 21:17> General Exam Limitations: no limitations <Derek Jean - Last Filed: 08/04/21 21:17> Course <Allen Andres - Last Filed: 08/05/21 03:46> Vital Signs 08/04/21 08/04/21 08/04/21 20:33 21:44 22:45 Temperature 98.7 F Pulse Rate 88 Respiratory 19 18 18 Rate Blood Pressure 188/105 O2 Sat by Pulse 97 Oximetry 08/05/21 02:35 Temperature Pulse Rate 62 Respiratory 16 Rate Blood Pressure 159/84 O2 Sat by Pulse 99 Oximetry - Reevaluation(s) Reevaluation #1: 08/05/21 03:45 Patient was made medically clear for psychiatric evaluation Patient symptoms are improved here in the ER Patient informed results and findings, questions answered Patient is no acute distress (Allen Andres) Medical Decision Making <Allen Andres - Last Filed: 08/05/21 03:46> - Medical Decision Making 66 female who was seen and evaluated psychiatry here in the emergency room. A she is not homicidal or suicidal and can be discharged home (Allen Andres) - Lab Data Lab Results 08/04/21 Range/Units 20:58 Coronavirus (PCR) Not Detected (Not Detectd) Disposition <Derek Jean - Last Filed: 08/04/21 21:17> Is patient prescribed a controlled substance at d/c from ED?: No <Allen Andres - Last Filed: 08/05/21 03:46> Clinical Impression: Acute psychosis, Schizoaffective disorder, bipolar type Disposition: HOME SELF-CARE Condition: Fair Instructions (If sedation given, give patient instructions): Mood Disorders (ED), Brief Psychotic Disorder (ED) Referrals: None,Stated [Primary Care Provider] - 1-2 days
[2021-08-05] MEDS ORDERED: fluPHENAZine DECANOATE 25 MG/ML 5ML MDV IM ONE (01:09)
[2021-08-05 02:36] VITALS: RESP 16
[2021-08-05 02:42] VITALS: BP 159/84; PULSE 62
== END 2021-08-05 02:36 | disposition home or self-care (01) ==
LOC: EC 20:25
DX: F23 Brief psychotic disorder (principal); F25.0 Schizoaffective disorder, bipolar type
CPT/HCPCS: 82075; 87635; 99284; 96372; J2680